=== PATIENT | female | born 1935 | race Caucasian/White ===

== ENCOUNTER → 2016-04-01 | Outpatient (CLI) | payer MEDICARE, OTHER ==
[~2016-04-01] MED LIST: ACET-71 PO; AMIT75TA PO; ASPI81TA85 PO; BIMA01SOL OU; CARV12.5 PO; CARV6.25 PO; CIPR500T89 PO; CLOB0.057 TOP; CODE15TA2 PO; CODE30TA3 PO; DIOV160T6 PO; GABA300C3 PO; GLIP-162 PO; GLIP-163 PO; INSUH10VL SC; LOMO2.5T PO; LOVA1CAP17 PO; METF1000 PO; METF500T PO; MULT1TAB9 PO; NEUR300C PO; OLOP1OPD OU; OMEP20CA3 PO; REQU1TAB16 PO; ROPI1TAB PO; ROPI2TAB PO; SUCR1SS PO; VICO10TA11 PO; VITMTA PO; ZETI10TA2 PO; ZYLO300T4 PO; ZYRT10CA PO
[2016-04-01 12:38] LABS: YEAST LIKE CELL URINE AUTO SMALL
[2016-04-01 12:51] LABS: CALCIUM LEVEL 9.3 MG/DL (8.8-10.2); CREATININE FOR GFR 1.86 MG/DL (0.55-1.02); GLOMERULAR FILTRATION RATE 27.8 (>32); POTASSIUM SERUM 4.5 MEQ/L (3.5-5.1)
[2016-04-01 12:55] LABS: MEAN CORPUSCULAR HEMOGLOBIN 29.6 pg (27.0-33.0); MEAN CORPUSCULAR HGB CONC 32.7 g/dl (32.0-36.5); MEAN CORPUSCULAR VOLUME 90.6 fl (80.0-96.0); RED CELL DISTRIBUTION WIDTH 14.5 % (11.5-14.5); WHITE BLOOD COUNT 7.4 K/mm3 (4.0-10.0)
== END ==
LOC: M LAB 11:46
PROVIDERS: ATTEND Urology
DX: Z08 Encounter for follow-up examination after completed treatment for malignant neoplasm (principal); Z85.528 Personal history of other malignant neoplasm of kidney; Z90.5 Acquired absence of kidney

== ENCOUNTER → 2016-04-07 | Outpatient (REF) | payer MEDICARE, OTHER ==
[2016-04-07 18:09] LABS: PERCENT SATURATION 16.9 % (13.2-37.4)
== END ==
LOC: M LAB REF 17:01
PROVIDERS: ATTEND Internal Medicine Nephrology
DX: N39.0 Urinary tract infection, site not specified (principal); D50.9 Iron deficiency anemia, unspecified
CPT/HCPCS: 82728; 83550; 87088; 87186; G0463

== ENCOUNTER → 2016-06-23 | Outpatient (CLI) | payer MEDICARE, OTHER ==
[~2016-06-23] MED LIST changes: +GABA-282 PO; -GABA300C3 PO
[2016-06-23 10:50] LABS: MEAN CORPUSCULAR HEMOGLOBIN 29.5 pg (27.0-33.0); MEAN CORPUSCULAR HGB CONC 32.7 g/dl (32.0-36.5); MEAN CORPUSCULAR VOLUME 90.3 fl (80.0-96.0); RED CELL DISTRIBUTION WIDTH 14.2 % (11.5-14.5); WHITE BLOOD COUNT 7.5 K/mm3 (4.0-10.0)
[2016-06-23 11:01] LABS: CALCIUM LEVEL 8.4 MG/DL (8.8-10.2); CREATININE FOR GFR 1.84 MG/DL (0.55-1.02); GLOMERULAR FILTRATION RATE 28.1 (>32); POTASSIUM SERUM 4.5 MEQ/L (3.5-5.1)
== END ==
LOC: M LAB 10:25
PROVIDERS: ATTEND Urology
DX: Z90.5 Acquired absence of kidney (principal)

== ENCOUNTER → 2016-11-11 | Outpatient (CLI) | payer MEDICARE, OTHER ==
[~2016-11-11] MED LIST changes: -ACET-71 PO; +ACET1TAB16 PO; +CIPR-249 PO; -CIPR500T89 PO; -METF1000 PO; +METF10004 PO; -METF500T PO; +METF500T13 PO; -ZETI10TA2 PO; +ZETI10TA30 PO
[2016-11-11 15:57] LABS: MEAN CORPUSCULAR HEMOGLOBIN 29.7 pg (27.0-33.0); MEAN CORPUSCULAR HGB CONC 32.8 g/dl (32.0-36.5); MEAN CORPUSCULAR VOLUME 90.7 fl (80.0-96.0); WHITE BLOOD COUNT 7.8 10^3/uL (4.0-10.0)
[2016-11-11 16:27] LABS: CALCIUM LEVEL 9.3 MG/DL (8.8-10.2); CREATININE FOR GFR 1.67 MG/DL (0.55-1.02); GLOMERULAR FILTRATION RATE 31.4 (>32); POTASSIUM SERUM 4.8 MEQ/L (3.5-5.1)
== END ==
LOC: M LAB 15:12
PROVIDERS: ATTEND Urology
DX: Z90.5 Acquired absence of kidney (principal); Z85.528 Personal history of other malignant neoplasm of kidney

== ENCOUNTER 2016-12-23 09:46 | Emergency (ER) | payer MEDICARE, OTHER ==
[~2016-12-23] VITALS: Ht 157.5 cm; Wt 86.3 kg
[~2016-12-23 09:46] MED LIST changes: -IMOD2TAB16 PO; -PEPC1TAB2 PO; -SING10TA32 PO; -ZOFR4TAB3 PO
[2016-12-23] MEDS ORDERED: IMOD2TAB16 PO (10:02)
[2016-12-23] MEDS ORDERED: SING10TA32 PO (10:02)
[2016-12-23] MEDS ORDERED: PEPC1TAB2 PO (10:02)
[2016-12-23] MEDS ORDERED: NS 1,000 ML IV ONE ×2 (10:30→15:00)
[2016-12-23 10:32] LABS: BASO # 0.1 10^3/uL (0.0-0.2); BASO % 0.6 % (0.0-1.0); EOS # 0.2 10^3/uL (0.0-0.50); EOS % 2.6 % (0.0-3.0); IMMATURE GRANULOCYTE % 0.2 % (0-0); LYMPH # 2.3 10^3/uL (1.5-4.5); LYMPH % 25.6 % (24.0-44.0); MEAN CORPUSCULAR HEMOGLOBIN 29.1 pg (27.0-33.0); MEAN CORPUSCULAR VOLUME 88.2 fl (80.0-96.0); MONO # 0.8 10^3/uL (0.0-0.8); NEUTROPHILS # 5.5 10^3/uL (1.8-7.7); PLATELET COUNT, AUTOMATED 192 10^3/uL (150-450); RED CELL DISTRIBUTION WIDTH 14.6 % (11.5-14.5); WHITE BLOOD COUNT 8.9 10^3/uL (4.0-10.0)
[2016-12-23 11:25] LABS: INR 1.1
[2016-12-23 11:40] LABS: ALBUMIN 3.6 GM/DL (3.2-5.2); ALBUMIN/GLOBULIN RATIO 1.03 (1.00-1.93); BILIRUBIN,DIRECT 0.2 MG/DL (0.0-0.2); BILIRUBIN,TOTAL 0.7 MG/DL (0.2-1.0); CALCIUM LEVEL 9.2 MG/DL (8.8-10.2); CREATININE FOR GFR 1.61 MG/DL (0.55-1.02); GLOMERULAR FILTRATION RATE 32.7 (>32); TOTAL PROTEIN 7.1 GM/DL (6.4-8.2)
--- NOTE | 2016-12-23 12:37 | REP ---
Clinical: Abdominal pain with diarrhea. Comparison: 01/13/2016. Findings: 3.5 cm hepatic cyst in the left lobe is essentially unchanged. Spleen, pancreas, and left adrenal gland are normal. Right kidney demonstrates 1 cm hyperdense lesion likely representing complex cyst (image 64). The patient is status post left nephrectomy and cholecystectomy. Very subtle stranding adjacent to the duodenum and pancreatic head may reflect chronic changes however duodenitis versus pancreatitis cannot be excluded and should be correlated clinically. The enteric system is without obstruction or acute inflammatory process. Pelvis demonstrates normal bladder and evidence for prior hysterectomy. Sigmoid diverticula noted without acute diverticulitis. No ascites. No free air. No significant adenopathy. Atherosclerotic changes of the aorta noted without aneurysm. Skeletal structures demonstrate degenerative changes without focal osseous abnormality. Lung bases clear. Impression: 1. Very minimal stranding at the level of the duodenum and pancreatic head may reflect chronic changes versus acute duodenitis/pancreatitis and correlation is recommended. 2. No further acute abdominopelvic pathology appreciated. 3. Chronic changes include 3.5 cm hepatic cyst and 1 cm right renal hyperdense lesion likely representing complex cyst. 4. No ascites. No obvious mass or adenopathy. Signed by Tacos Ma MD 12/23/2016 12:30 P
[2016-12-23] MEDS ORDERED: ONDANSETRON 4MG/2ML VIAL (J2405) IV ONE (13:30)
[2016-12-23] MEDS ORDERED: ACETAMINOPHEN TAB 650MG DOSE (2X325MG) PO ONE (13:30)
--- NOTE | 2016-12-23 13:56 | ECGEPIP ---
Stationary ECG Study [facility] - ED Test Date: 2016-12-23 Pat Name: THAIS ART Department: Room: - Gender: F [employer] Operator: frank : 1935 Requested By: Natalia Thompson Order Number: [id number] Reading MD: Bharat Llamas Measurements Intervals [place] Rate: 92 P: 34 ND: 138 QRS: -41 QRSD: 101 T: 62 QT: 356 QTc: 442 Interpretive Statements SINUS RHYTHM LEFT AXIS DEVIATION PATTERN CONSISTENT WITH PULMONARY DISEASE NONSPECIFIC T-WAVE ABNORMALITY SIMILAR TO 03/15/15 Electronically Signed On 12-23-2016 13:56:15 EST by Bharat Llamas
[2016-12-23] MEDS ORDERED: ZOFR4TAB3 PO (16:47)
[2016-12-23 18:35] VITALS: BP 135/78
--- NOTE | 2016-12-27 09:17 | ED PDOC ---
Post-Departure Follow-Up dari flores faxed formal report of ct abd/p for fu Kristie Fritz MD Dec 27, 2016 09:17
== END 2016-12-23 18:38 | disposition home or self-care (01) ==
LOC: M ED 09:46
DX: R11.10 Vomiting, unspecified (principal); R19.7 Diarrhea, unspecified; K58.9 Irritable bowel syndrome, unspecified; Z79.899 Other long term (current) drug therapy; Z79.4 Long term (current) use of insulin; Z88.1 Allergy status to other antibiotic agents; Z88.2 Allergy status to sulfonamides; Z85.528 Personal history of other malignant neoplasm of kidney
CPT/HCPCS: 36415; 74176; 80048; 80076; 83605; 83690; 85025; 85610; 93005; 93041; 96374; 99285; J2405

== ENCOUNTER → 2016-12-23 | Outpatient (REF) | payer MEDICARE, OTHER ==
[~2016-12-23] MED LIST changes: +IMOD2TAB16 PO; +PEPC1TAB2 PO; +SING10TA32 PO; +ZOFR4TAB3 PO
== END ==
LOC: M LAB REF 11:58
PROVIDERS: ATTEND Emergency Medicine
DX: R19.7 Diarrhea, unspecified (principal)

== ENCOUNTER → 2017-02-16 | Outpatient (CLI) | payer MEDICARE, OTHER ==
[2017-02-16 16:30] LABS: HEMATOCRIT 38.4 % (36.0-47.0); HEMOGLOBIN 12.7 g/dl (12.0-16.0); MEAN CORPUSCULAR HEMOGLOBIN 29.1 pg (27.0-33.0); MEAN CORPUSCULAR HGB CONC 33.1 g/dl (32.0-36.5); MEAN CORPUSCULAR VOLUME 87.9 fl (80.0-96.0); PLATELET COUNT, AUTOMATED 186 10^3/uL (150-450); RED BLOOD COUNT 4.37 10^6/uL (4.00-5.40); RED CELL DISTRIBUTION WIDTH 13.9 % (11.5-14.5); WHITE BLOOD COUNT 8.4 10^3/uL (4.0-10.0)
[2017-02-16 17:02] LABS: ANION GAP 4 MEQ/L (8-16); BLOOD UREA NITROGEN 22 MG/DL (7-18); CALCIUM LEVEL 9.2 MG/DL (8.8-10.2); CARBON DIOXIDE LEVEL 32 MEQ/L (21-32); CHLORIDE LEVEL 105 MEQ/L (98-107); CREATININE FOR GFR 1.42 MG/DL (0.55-1.02); GLOMERULAR FILTRATION RATE 37.8 (>32); GLUCOSE, FASTING 136 MG/DL (83-110); POTASSIUM SERUM 4.3 MEQ/L (3.5-5.1); SODIUM LEVEL 141 MEQ/L (136-145)
== END ==
LOC: M LAB 16:02
DX: Z85.528 Personal history of other malignant neoplasm of kidney (principal)
CPT/HCPCS: 80048

== ENCOUNTER → 2017-08-09 | Outpatient (CLI) | payer MEDICARE, OTHER ==
[2017-08-09 12:37] LABS: HEMATOCRIT 36.7 % (36.0-47.0); MEAN CORPUSCULAR HEMOGLOBIN 29.2 pg (27.0-33.0); MEAN CORPUSCULAR HGB CONC 32.7 g/dl (32.0-36.5); MEAN CORPUSCULAR VOLUME 89.3 fl (80.0-96.0); PLATELET COUNT, AUTOMATED 156 10^3/uL (150-450); RED BLOOD COUNT 4.11 10^6/uL (4.00-5.40); RED CELL DISTRIBUTION WIDTH 14.6 % (11.5-14.5); WHITE BLOOD COUNT 8.3 10^3/uL (4.0-10.0)
[2017-08-09 12:43] LABS: BACTERIA, URINE AUTO 1+ (NEGATIVE); MUCUS, URINE SMALL (NEGATIVE); RBC, URINE AUTO 3 /HPF (0-3); SQUAMOUS EPITHELIAL CELL UR AU 0 /HPF (0-6); WBC, URINE AUTO 1 /HPF (0-3)
[2017-08-09 12:53] LABS: APPEARANCE, URINE CLEAR (CLEAR); BILIRUBIN, URINE AUTO NEGATIVE (NEGATIVE); BLOOD, URINE BLOOD NEGATIVE (NEGATIVE); COLOR, URINE YELLOW (YELLOW); GLUCOSE, URINE (UA) AUTO NEGATIVE (NEGATIVE); KETONE, URINE AUTO NEGATIVE (NEGATIVE); LEUKOCYTE ESTERASE, URINE AUTO NEGATIVE (NEGATIVE); NITRITE, URINE AUTO NEGATIVE (NEGATIVE); PROTEIN, URINE AUTO NEGATIVE (NEGATIVE); SPECIFIC GRAVITY URINE AUTO 1.012 (1.002-1.035); UROBILINOGEN, URINE AUTO 0.2 mg/dL (0.0-2.0)
[2017-08-09 13:09] LABS: ANION GAP 8 MEQ/L (8-16); BLOOD UREA NITROGEN 28 MG/DL (7-18); CALCIUM LEVEL 8.8 MG/DL (8.8-10.2); CARBON DIOXIDE LEVEL 28 MEQ/L (21-32); CHLORIDE LEVEL 103 MEQ/L (98-107); CREATININE FOR GFR 1.51 MG/DL (0.55-1.30); GLOMERULAR FILTRATION RATE 35.2 (>32); GLUCOSE, FASTING 193 MG/DL (70-100); POTASSIUM SERUM 4.6 MEQ/L (3.5-5.1); SODIUM LEVEL 139 MEQ/L (136-145)
== END ==
LOC: M LAB 11:41
DX: Z08 Encounter for follow-up examination after completed treatment for malignant neoplasm (principal); Z85.528 Personal history of other malignant neoplasm of kidney
CPT/HCPCS: 80048

== ENCOUNTER → 2017-09-23 | Outpatient (CLI) | payer MEDICARE, OTHER | LOC: M WUC 10:26 | DX: M25.531 Pain in right wrist (principal); M19.041 Primary osteoarthritis, right hand | CPT/HCPCS: 73110 ==

== ENCOUNTER → 2017-12-21 | Outpatient (CLI) | payer MEDICARE, OTHER | LOC: M WHC 13:31 | DX: Z12.31 Encounter for screening mammogram for malignant neoplasm of breast (principal); Z80.3 Family history of malignant neoplasm of breast; Z78.0 Asymptomatic menopausal state; Z98.890 Other specified postprocedural states | CPT/HCPCS: 77067 ==

== ENCOUNTER 2018-01-27 13:03 | Emergency (ER) | payer MEDICARE, OTHER ==
[2018-01-27] MEDS: traMADol 50 MG TAB PO (13:50)
[2018-01-27] MEDS: ACETAMINOPHEN TAB 650MG DOSE (2X325MG) PO (13:50)
== END 2018-01-27 14:58 | disposition home or self-care (01) ==
LOC: M ED 13:03
DX: M50.30 Other cervical disc degeneration, unspecified cervical region (principal); M62.838 Other muscle spasm; G43.909 Migraine, unspecified, not intractable, without status migrainosus; M79.7 Fibromyalgia; E78.00 Pure hypercholesterolemia, unspecified; I10 Essential (primary) hypertension; J44.9 Chronic obstructive pulmonary disease, unspecified; G47.30 Sleep apnea, unspecified; Z87.01 Personal history of pneumonia (recurrent); H40.9 Unspecified glaucoma; K21.9 Gastro-esophageal reflux disease without esophagitis; K57.32 Diverticulitis of large intestine without perforation or abscess without bleeding; Z87.440 Personal history of urinary (tract) infections; Z87.442 Personal history of urinary calculi; E11.9 Type 2 diabetes mellitus without complications; G25.81 Restless legs syndrome; M47.812 Spondylosis without myelopathy or radiculopathy, cervical region; M47.813 Spondylosis without myelopathy or radiculopathy, cervicothoracic region; Z79.4 Long term (current) use of insulin; Z79.899 Other long term (current) drug therapy; Z88.2 Allergy status to sulfonamides
CPT/HCPCS: 72125

== ENCOUNTER → 2018-02-20 | Outpatient (CLI) | payer MEDICARE, OTHER ==
[~2018-02-20] MED LIST changes: -GABA-282 PO; +GABA-843 PO; +IMOD2TAB16 PO; +PEPC1TAB2 PO; +SING10TA32 PO; +ULTR50TA8 PO; +ZOFR4TAB14 PO; -ZYLO300T4 PO; +ZYLO300T6 PO
[2018-02-20 13:45] LABS: HEMATOCRIT 38.4 % (36.0-47.0); HEMOGLOBIN 12.5 g/dl (12.0-15.5); MEAN CORPUSCULAR HEMOGLOBIN 29.7 pg (27.0-33.0); MEAN CORPUSCULAR HGB CONC 32.6 g/dl (32.0-36.5); MEAN CORPUSCULAR VOLUME 91.2 fl (80.0-96.0); PLATELET COUNT, AUTOMATED 164 10^3/uL (150-450); RED BLOOD COUNT 4.21 10^6/uL (4.00-5.40); WHITE BLOOD COUNT 7.2 10^3/uL (4.0-10.0)
[2018-02-20 14:10] LABS: CALCIUM LEVEL 9.1 MG/DL (8.8-10.2); CREATININE FOR GFR 1.52 MG/DL (0.55-1.30); GLOMERULAR FILTRATION RATE 34.9 (>32); POTASSIUM SERUM 4.6 MEQ/L (3.5-5.1)
[2018-02-20 15:51] LABS: APPEARANCE, URINE MANUAL HAZY (CLEAR); BILIRUBIN, URINE MANUAL NEGATIVE (NEGATIVE); BLOOD URINE MANUAL TRACE (NEGATIVE); COLOR, URINE MANUAL YELLOW (YELLOW); GLUCOSE, URINE (UA) MANUAL 3+(500 MG/DL) mg/dL (NEGATIVE); KETONE, URINE MANUAL NEGATIVE (NEGATIVE); LEUKOCYTE ESTERASE, URINE MAN NEGATIVE (NEGATIVE); NITRITE, URINE MANUAL NEGATIVE (NEGATIVE); PROTEIN, URINE MANUAL 2+ mg/dL (NEGATIVE); UROBILINOGEN, URINE MANUAL NORMAL (NORMAL)
[2018-02-20 15:52] LABS: AMORPHOUS SEDIMENT, URINE MOD AMOUNT (NEGATIVE); BACTERIA, URINE SMALL AMOUNT; HYALINE CAST, URINE NONE SEEN /lpf (0-1); SQUAMOUS EPITHELIAL CELL URINE MOD AMOUNT /hpf (SMALL AMT); WBC, URINE 0-1 /hpf (0-3)
== END ==
LOC: M SMT 10:50
PROVIDERS: ATTEND Nurse Practitioner Women's Health
DX: Z85.528 Personal history of other malignant neoplasm of kidney (principal); Z90.5 Acquired absence of kidney
CPT/HCPCS: 36415; 80048; 81000; 85027; 87088; 87186; G0463

== ENCOUNTER → 2018-05-29 | Outpatient (REF) | payer MEDICARE, OTHER ==
[~2018-05-29] MED LIST changes: +ACET300T47 PO; -CODE30TA3 PO; -OLOP1OPD OU; +PATA2.5S OU; -PEPC1TAB2 PO; +PEPC40TA12 PO
== END ==
LOC: M SMT 18:32
PROVIDERS: ATTEND Family Medicine
DX: N39.0 Urinary tract infection, site not specified (principal)

== ENCOUNTER → 2018-08-15 | Outpatient (CLI) | payer MEDICARE, OTHER ==
[~2018-08-15] MED LIST changes: -OMEP20CA3 PO; +OMEP20CA4 PO
[2018-08-15 15:08] LABS: APPEARANCE, URINE CLEAR (CLEAR); BACTERIA, URINE AUTO NEGATIVE (NEGATIVE); BILIRUBIN, URINE AUTO NEGATIVE (NEGATIVE); BLOOD, URINE BLOOD NEGATIVE (NEGATIVE); COLOR, URINE YELLOW (YELLOW); GLUCOSE, URINE (UA) AUTO 1+ mg/dL (NEGATIVE); KETONE, URINE AUTO NEGATIVE (NEGATIVE); LEUKOCYTE ESTERASE, URINE AUTO NEGATIVE (NEGATIVE); MUCUS, URINE SMALL (NEGATIVE); NITRITE, URINE AUTO NEGATIVE (NEGATIVE); PROTEIN, URINE AUTO NEGATIVE (NEGATIVE); RBC, URINE AUTO 3 /HPF (0-3); SPECIFIC GRAVITY URINE AUTO 1.008 (1.002-1.035); SQUAMOUS EPITHELIAL CELL UR AU 0 /HPF (0-6); UROBILINOGEN, URINE AUTO 0.2 mg/dL (0.0-2.0); WBC, URINE AUTO 2 /HPF (0-3)
[2018-08-15 15:11] LABS: HEMOGLOBIN 11.6 g/dl (12.0-15.5); MEAN CORPUSCULAR HEMOGLOBIN 30.9 pg (27.0-33.0); MEAN CORPUSCULAR HGB CONC 33.1 g/dl (32.0-36.5); MEAN CORPUSCULAR VOLUME 93.3 fl (80.0-96.0); PLATELET COUNT, AUTOMATED 145 10^3/uL (150-450); RED BLOOD COUNT 3.75 10^6/uL (4.00-5.40)
[2018-08-15 15:20] LABS: CREATININE FOR GFR 1.65 MG/DL (0.55-1.30); GLOMERULAR FILTRATION RATE 31.7 (>32); POTASSIUM SERUM 4.2 MEQ/L (3.5-5.1)
== END ==
LOC: M LAB 14:30
PROVIDERS: ATTEND Family Medicine
DX: N39.0 Urinary tract infection, site not specified (principal); Z85.528 Personal history of other malignant neoplasm of kidney

== ENCOUNTER → 2018-08-28 | Outpatient (CLI) | payer MEDICARE, OTHER ==
--- NOTE | 2018-08-28 09:09 | REP ---
CT of the abdomen, pelvis not included, without IV or bowel contrast: Comparison is 12/23/2016. There is a left nephrectomy. This is unchanged. There is no evidence of tumor recurrence in the left renal bed. There is a right renal 12 mm hyperdense cyst, not significantly changed. The unenhanced right kidney is otherwise unremarkable. The right adrenal is unremarkable. I do not identify the left adrenal. The visualized lung salazar are unremarkable. The unenhanced paretic pancreatic parenchyma again demonstrates a cyst in the left hepatic lobe measuring 3.5 cm, unchanged. The unenhanced hepatic parenchyma is otherwise unremarkable. There are surgical clips in the gallbladder fossa. The pancreas is unremarkable. Spleen is normal size, homogeneous and unremarkable. The visualized bowel and mesentery are unremarkable. The abdominal aorta is unremarkable. There is no retroperitoneal adenopathy or mass. There is a 1.7 cm round lucency in the vertebral body, consider radionuclide bone scan for follow up evaluation. Impression: No evidence of a tumor recurrence in the left renal bed, adenopathy or ascites. There is a 1.7 cm round lucency in the L2 vertebral body. Consideration might be given to follow-up radionuclide bone scan for further evaluation. Electronically Signed by Morris Steele MD 08/28/2018 09:00 A
--- NOTE | 2018-08-28 09:30 | REP ---
PA and lateral chest: Comparison is 02/24/2015. The lung salazar are clear. Cardiac size is upper normal, unchanged. The pam, mediastinum, skeletal structures are unchanged. There are multiple surgical anchor screws in the right humeral head, unchanged. Surgical clips are again noted in the upper abdomen on the right, unchanged. Impression: Essentially negative PA and lateral chest. No interval change. Electronically Signed by Morris Steele MD 08/28/2018 09:21 A
== END ==
LOC: M RAD 08:15
PROVIDERS: ATTEND Urology
DX: Z85.528 Personal history of other malignant neoplasm of kidney (principal); Z90.5 Acquired absence of kidney

== ENCOUNTER → 2018-09-07 | Outpatient (CLI) | payer MEDICARE, OTHER ==
[~2018-09-07] MED LIST changes: +ZETI10TA16 PO; -ZETI10TA30 PO
--- NOTE | 2018-09-07 12:07 | REP ---
Radionuclide bone scan: The study is performed with 20.8 millicuries of technetium 99m labeled MDP. There are no comparison studies. The patient has a history of left renal carcinoma and a left nephrectomy. There is focal increased uptake in the lower cervical spine/upper thoracic spine. There is uptake in the joints of the hands bilaterally compatible with arthritis. There are bilateral knee arthroplasties. There is uptake in the tarsometatarsal joints bilaterally and at the MTP joints bilaterally, likely arthritic. There is no left renal uptake, the patient having a left nephrectomy. Impression: There is focal increased uptake in the spine at the lower cervical spine/upper thoracic spine . This is nonspecific and plain films, CT or MRI of this area are recommended for further evaluation. There is an arthritic pattern of uptake in the hands and feet. There are bilateral knee arthroplasties. Electronically Signed by Morris Steele MD 09/07/2018 11:59 A
== END ==
LOC: M RAD 07:48
PROVIDERS: ATTEND Urology
DX: M89.9 Disorder of bone, unspecified (principal); Z79.899 Other long term (current) drug therapy
CPT/HCPCS: 78306; 87086; A9503

== ENCOUNTER → 2018-09-07 | Outpatient (REF) | payer MEDICARE, OTHER ==
[~2018-09-07] MED LIST changes: -ZETI10TA16 PO; +ZETI10TA30 PO
== END ==
LOC: M LAB REF 17:23
PROVIDERS: ATTEND Internal Medicine Nephrology
DX: N39.0 Urinary tract infection, site not specified (principal)

== ENCOUNTER → 2018-09-14 | Outpatient (CLI) | payer MEDICARE, OTHER ==
[~2018-09-14] MED LIST changes: +ZETI10TA16 PO; -ZETI10TA30 PO
--- NOTE | 2018-09-14 17:47 | REP ---
CERVICAL SPINE, EIGHT VIEWS: HISTORY: None provided. The cervical spine is visualized from C1 to the C6-7 level in the lateral radiographs. There is no acute fracture. The C5-6 and C6-7 intervertebral discs are decreased in height consistent with disc degeneration. Osteophytes are present on C5 through C7. The neural foramina are poorly seen. There are 2 mm of anterior subluxation of C4 on C5 and C5 on C6, unchanged with flexion and extension. IMPRESSION: Degenerative change as described above. Electronically Signed by Vladimir Leon MD 09/15/2018 08:19 A
== END ==
LOC: M RAD 15:21
PROVIDERS: ATTEND Urology
DX: M50.322 Other cervical disc degeneration at C5-C6 level (principal); M50.323 Other cervical disc degeneration at C6-C7 level; M25.78 Osteophyte, vertebrae; R94.8 Abnormal results of function studies of other organs and systems

== ENCOUNTER 2018-12-12 08:52 | Inpatient (IN) | payer MEDICARE, OTHER ==
[~2018-12-12] VITALS: Ht 154.9 cm; Wt 90.9 kg
[2018-12-12] MEDS ORDERED: ONDANSETRON 4MG/2ML VIAL (J2405) IV ONE (09:15)
[2018-12-12] MEDS: MORPHINE 4 MG/ML 1ML VIAL/SYRINGE (J2270) IV PRN ×3 (09:29→20:14)
[2018-12-12 09:38] LABS: BASO # 0.1 10^3/uL (0.0-0.2); BASO % 0.5 % (0.0-1.0); EOS # 0.3 10^3/uL (0.0-0.5); EOS % 2.7 % (0.0-3.0); HEMATOCRIT 38.7 % (36.0-47.0); HEMOGLOBIN 12.5 g/dl (12.0-15.5); LYMPH # 1.8 10^3/uL (1.5-5.0); MEAN CORPUSCULAR HEMOGLOBIN 29.3 pg (27.0-33.0); MEAN CORPUSCULAR HGB CONC 32.3 g/dl (32.0-36.5); MEAN CORPUSCULAR VOLUME 90.8 fl (80.0-96.0); MONO # 1.1 10^3/uL (0.0-0.8); MONO % 11.8 % (0.0-5.0); NEUTROPHILS # 6.1 10^3/uL (1.5-8.5); NEUTROPHILS % 65.8 % (36.0-66.0); PLATELET COUNT, AUTOMATED 161 10^3/uL (150-450); RED BLOOD COUNT 4.26 10^6/uL (4.00-5.40); WHITE BLOOD COUNT 9.2 10^3/uL (4.0-10.0)
[2018-12-12 10:22] LABS: ERYTHROCYTE SEDIMENTATION RATE 37 mm/hr (0-30)
[2018-12-12 11:03] LABS: ALBUMIN 3.6 GM/DL (3.2-5.2); BILIRUBIN,TOTAL 0.7 MG/DL (0.2-1.0); C REACTIVE PROTEIN QUANTITATIV 2.35 MG/DL (0.00-0.30); CALCIUM LEVEL 9.2 MG/DL (8.8-10.2); CREATININE FOR GFR 1.41 MG/DL (0.55-1.30); POTASSIUM SERUM 4.5 MEQ/L (3.5-5.1)
--- NOTE | 2018-12-12 11:13 | REP ---
AP pelvis: The pelvis is oblique. There is a small area of cortical overlap superior cortex of the right femoral neck, of uncertain significance. This could represent a nondisplaced fracture could be artifact from positioning. No pelvic fractures are identified otherwise. Right hip four views: Small area of cortical overlap along the right femoral neck superior cortex is again identified. Artifact from positioning versus nondisplaced fracture. Depending on symptomatology, consider CT for further evaluation. Electronically Signed by Morris Steele MD 12/12/2018 11:05 A
[2018-12-12] MEDS ORDERED: HYDROMORPHONE HCL 0.5 MG/ 0.5 ML SYRINGE (J1170 PER 1) IV ONE (11:30)
[2018-12-12] MEDS: HYDROMORPHONE HCL 0.5 MG/ 0.5 ML SYRINGE (J1170 PER 1) IV PRN ×2 (12:57→23:06)
--- NOTE | 2018-12-12 14:42 | REP ---
CT RIGHT HIP WITHOUT CONTRAST: HISTORY: Pain. Comparison hip radiographs are from earlier this date. TECHNIQUE: Helical scanning is acquired. Coronal and sagittal MPR images are generated and reviewed along with axial images. There is fairly prominent tendon insertion site spurring in the ischium, and to a lesser extent, at the greater trochanter of the proximal femur. Proximal femur is intact without evidence of fracture. There is some subcortical cyst formation superiorly and laterally on the head/neck junction of the proximal femur consistent with arthritis. There is acetabular spurring and subcortical cyst formation. Mild joint space narrowing is present. No pelvic fracture is appreciated. There are a few left colonic diverticula noted incidentally. IMPRESSION: No hip or pelvic fracture seen. Hip joint osteoarthritis. Tendon insertion site spurring. Unreviewed
[2018-12-12] MEDS ORDERED: LIDOCAINE 5% (LIDODERM) PATCH TD ONE (15:00)
[2018-12-12] MEDS ORDERED: MAALOX 30 ML SUSP *UDC PO PRN (16:30)
[2018-12-12] MEDS ORDERED: MOM 30ML SUSPENSION UDC PO PRN (16:30)
[2018-12-12] MEDS ORDERED: GLUCOSE 4 GM CHEW TABLET PO PRN (16:45)
[2018-12-12] MEDS ORDERED: DEXTROSE 50% 50 ML SYRINGE IV PRN (16:45)
[2018-12-12] MEDS ORDERED: GLUCAGON FOR INJ 1 MG VIAL (J1610) SC PRN (16:45)
[2018-12-12] MEDS ORDERED: ONDANSETRON 4MG/2ML VIAL (J2405) IV PRN (16:45)
--- NOTE | 2018-12-12 16:51 | HPEPDOC ---
General Date of Admission 12/12/18 Date of Service: Dec 12, 2018 Chief Complaint The patient is a 82-year-old female admitted with a reason for visit of Non Traumatic Back Pain. History of Present Illness This is a 82 years old white female with past medical history of diabetes mellitus, hypertension, colitis, arthritis, diverticulitis, pneumonia, glaucoma are ill as obstructive sleep apnea on CPAP, fibromyalgia, renal cell carcinoma. Follows up with Dr. Steven and had recently. Bone scan of body done which shows arthritis of hips and knees presented with the chief complaints of severe right buttock pain, nonradiating, persistent since last 2 nights. She is unable to sleep or function secondary to pain. Pain does not radiate to lower limb artwork the spine, not associated with fever, nausea, vomiting or weakness of right lower extremity. In ED, patient had a CT of the right hip done, which essentially showed osteoarthritis and tendon spurring but no acute fracture, patient being admitted for pain management and physical therapy evaluation. Home Medications Scheduled Amitriptyline HCl (Amitriptyline HCl) 75 Mg Tab, 150 MG PO QHS, (Reported) Bimatoprost (Lumigan) 50 Drop/2.5 Ml Judy, 1 DROP OU QHS, (Reported) Carvedilol (Carvedilol) 12.5 Mg Tab, 12.5 MG PO BID, (Reported) Ezetimibe (Zetia) 10 Mg Tab, 10 MG PO QHS, (Reported) Famotidine (Pepcid) 40 Mg Tab, 40 MG PO DAILY, (Reported) Gabapentin (Neurontin) 300 Mg Cap, 300 MG PO ACS, (Reported) Glipizide (Glipizide Xl) 5 Mg Tab, 5 MG PO DAILY, (Reported) Insulin Human Lispro (Novolog) 100 U/Ml Inj, 0 SC ASDIRECTED, (Reported) Use insulin and sliding scale used at home prior to admission. Montelukast Sodium (Singulair) 10 Mg Tab, 10 MG PO DAILY, (Reported) Multivitamins (Thera M Plus Tablet) 1 Tab Tab, 1 TAB PO DAILY, (Reported) Olopatadine HCl (Patanol) 100 Drop/5 Ml Soln, 1 DROP OU BID, (Reported) ONE DROP Ropinirole HCl (Ropinirole HCl) 1 Mg Tab, 2 MG PO BID, (Reported) TAKES AT DINNER TIME Sucralfate (Carafate) 1 Gm/10 Ml Shwetha, 2 TSP PO QHS, (Reported) Valsartan (Diovan) 160 Mg Tab, 80 MG PO DAILY, (Reported) Scheduled PRN Acetaminophen with Codeine (Acetaminophen-Cod #3 Tablet) 1 Tab Tab, 1 TAB PO Q6H PRN for PAIN, (Reported) Cetirizine HCl (Zyrtec Allergy) 10 Mg Cap, 10 MG PO PRN PRN for CONGESTION, (Reported) Clobetasol Propionate (Clobetasol Propionate) 0.05 % Judy, 1 DOSE TOP PRN PRN for DRY SKIN, (Reported) PLACES ON FOREHEAD Loperamide Hcl (Imodium A-D) 2 Mg Tab, 2 MG PO PRN PRN for DIARRHEA, (Reported) Ondansetron (Zofran Odt) 4 Mg Tab, 4 MG PO Q4H PRN for NAUSEA Tramadol HCl (Ultram) 50 Mg Tab, 50 MG PO Q6H PRN for PAIN Allergies Coded Allergies: Sulfa (Sulfonamide Antibiotics) (Verified Allergy, Severe, 12/12/18) Contrast Media (Verified Allergy, Intermediate, 12/12/18) patient had kidney removed Past Medical History Medical History Diabetes mellitus, hypertension, colitis, arthritis, diverticulitis, pneumonia, glaucoma, RLS, obstructive sleep apnea, fibromyalgia, renal cell carcinoma Surgical History Hysterectomy with bilateral salpingo-oophorectomy, cataract. 5. Bilateral knee replacement, knee arthroscopy, shoulder arthroscopy Coppertone's syndrome releases, bilateral rotator cuff tear repair 3 on right side, cholecystectomy robotic left nephrectomy secondary to renal cell carcinoma, left shoulder surgery Family History Significant Family History: Other (father at the age of 73 with [place]. Mother at age of 79 with ALS. One other brother due to aortic aneurysm and sister had breast cancer) Social History * Smoker: Denies Alcohol: Denies Drugs: denies A-FIB/CHADSVASC A-FIB History Current/History of A-Fib/PAF?: No Review of Systems Constitutional: Denies: Chills, Fever, Malaise, Night Sweats, Weakness, Fatigue, Weight Loss, Lethargy, Other Eyes: Denies: Pain, Vision change, Conjunctivae inflammation, Eyelid inflammation, Redness, Other ENT: Denies: Head Aches, Ear Pain, Dysphagia, Sinus Congestion, Post Nasal Drip, Sore Throat, Epistaxis, Other Symptoms Skin: Denies: Rash, Lesions, Jaundice, Bruising, Itching, Dry, Breakdown, Nail Changes, Other Pulmonary: Denies: Dyspnea, Cough, Pleuritic Chest Pain, Other Symptoms Cardiovascular: Denies: Chest Pain, Palpitations, Orthopnea, Paroxysmal Noc. Dyspnea, Edema, Lt Headedness, Other Symptoms Gastrointestinal: Denies: Nausea, Vomiting, Abdominal Pain, Diarrhea, Constipation, Melena, Hematochezia, Other Symptoms Genitourinary: Denies: Dysuria, Frequency, Incontinence, Hematuria, Retention, Other Symptoms Hematologic: Denies: Bruising, Bleeding Excessively, Petecchia, Purpura, Enlarged Lymph Nodes, Other Hematologic Endocrine: Denies: Polydipsia, Polyphagia, Polyuria, Heat Intolerance, Cold Intolerance, Other Endocrine Sx Musculoskeletal: Reports: Other Symptoms (, right buttock pain) Neurological: Denies: Weakness, Numbness, Incoordination, Change in speech, Confusion, Seizures, Other Symptoms Psych: Denies: Mood Normal, Anxiety, Depression, Memory Issues, Thoughts of Self Harm, Anger, Thoughts of Harming Other, Other Psych Physical Examination General Exam: Positive: Alert, Cooperative Eye Exam: Positive: PERRLA, Conjunctiva & lids normal ENT Exam: Positive: Atraumatic Chest Exam: Positive: Clear to auscultation, Normal air movement Heart Exam: Positive: Rate Normal, Normal S1, Normal S2 Abdomen Exam: Positive: Normal bowel sounds, Soft Extremity Exam: Positive: Other (. Positive point tenderness in the middle of her buttocks about the ischial tuberosity on the right side. No mass palpated) Skin Exam: Positive: Nl turgor and temperature Neuro Exam: Positive: Strength at 5/5 X4 ext, Sensation Intact Psych Exam: Positive: Mood NL, Oriented x 3 Vital Signs Vital Signs Date Time Temp Pulse Resp B/P (MAP) Pulse Ox O2 Delivery O2 Flow Rate FiO2 12/12/18 11:42 18 92 Room Air 12/12/18 11:37 104 12/12/18 10:34 99.5 176/95 Laboratory Data Labs 24H Laboratory Tests 2 12/12/18 09:27: Immature Granulocyte % (Auto) 0.2, Neutrophils (%) (Auto) 65.8, Lymphocytes (%) (Auto) 19.0L, Monocytes (%) (Auto) 11.8H, Eosinophils (%) (Auto) 2.7, Basophils (%) (Auto) 0.5, Neutrophils # (Auto) 6.1, Lymphocytes # (Auto) 1.8, Monocytes # (Auto) 1.1H, Eosinophils # (Auto) 0.3, Basophils # (Auto) 0.1, Nucleated Red Blood Cells % (auto) 0.0, Erythrocyte Sedimentation Rate 37H 12/12/18 10:19: Anion Gap 7L, Glomerular Filtration Rate 38.0, Calcium Level 9.2, Total Bilirubin 0.7, Aspartate Amino Transf (AST/SGOT) 39H, Alanine Aminotransferase (ALT/SGPT) 32, Alkaline Phosphatase 101, C-Reactive Protein, Quantitative 2.35H, Total Protein 7.0, Albumin 3.6, Albumin/Globulin Ratio 1.06 CBC/BMP Laboratory Tests 12/12/18 09:27 12/12/18 10:19 Problems (1) Hip pain Status: Acute Problem Text: 82 years old, obese, white female with past medical history of multiple medical problems including diabetes mellitus, osteoarthritis of the hips and joints follows up with orthopedic surgeon at [place] since last 10 years. Also history of for diverticulitis, pneumonia, glaucoma, fibromyalgia, renal cell carcinoma was in usual state of health except some aches and pain, but since last 2 days her right buttock pain. His been excruciating. She has been unable to sleep or ambulate secondary to pain. Pain is persistent localized, nonradiating, not associated with any other symptoms. Patient had a right hip x-ray which showed a questionable female. Neck fracture, but she also had a CT of the right hip done which did not show any acute fracture, just osteoarthritis and the tenderness spurring. Patient received multiple doses of analgesics including morphine sulfate, Dilaudid, and muscle relaxants such as Valium without significant affect. Hence, we were advice to admit patient for further observation Admit to [facility] floor Activity as tolerated Carbohydrate consistent diet Morphine sulfate 4 mg IV every 4 hours when necessary Lidocaine patch to right buttock daily And declined muscle relaxant as she has adverse effect with all of them causing disorientation and delirium . We will also order MRI without contrast of the right hip to look at the tendons and ligaments PT evaluation in a.m. (2) Tendinitis Status: Acute Problem Text: As above (3) Diabetes mellitus Status: Chronic Problem Text: Fingerstick blood sugar every before meals and at bedtime with coverage Continue home meds (4) HTN (hypertension) Status: Chronic Problem Text: Continue home meds Plan / VTE VTE Prophylaxis Ordered?: Yes VERO GARCIA MD Dec 12, 2018 16:51
[2018-12-12] MEDS: HumaLOG INSULIN (NovoLOG) PER UNIT SC SCH ×2 (17:30→22:56)
[2018-12-12] MEDS ORDERED: OLOP0.1D OU (17:38)
[2018-12-12] MEDS ORDERED: CETI10TA4 PO (17:38)
[2018-12-12] MEDS ORDERED: NYST10CR TOP (17:48)
[2018-12-12] MEDS ORDERED: ZYLO300T6 PO (17:48)
[2018-12-12] MEDS ORDERED: OLME20TA2 PO (17:48)
[2018-12-12] MEDS ORDERED: ALIG4CAP PO (17:48)
[2018-12-12] MEDS ORDERED: NYST1POW9 TOP (17:48)
[2018-12-12] MEDS ORDERED: CALC1CAP31 PO (17:48)
[2018-12-12] MEDS ORDERED: SYNT50TA PO (17:48)
[2018-12-12] MEDS ORDERED: LIDO5DIS41 TD (17:48)
[2018-12-12] MEDS ORDERED: COLE1TA PO (17:48)
[2018-12-12] MEDS ORDERED: OMEP-218 PO (17:50)
[2018-12-12 18:30] VITALS: BP 166/94
[2018-12-12] MEDS: traMADol 50 MG TAB PO PRN (20:14)
[2018-12-12] MEDS ORDERED: SUCRALFATE SUSP 1GM/10ML UD PO SCH (21:00)
[2018-12-12] MEDS ORDERED: **NOTE PATIENT COMMENT** MISC XX SCH (21:00)
[2018-12-12] MEDS: DOCUSATE SODIUM 100 MG CAP PO SCH (22:05)
[2018-12-12] MEDS: rOPINIRole 1MG TAB PO SCH (22:05)
[2018-12-12] MEDS: CARVedilol 12.5 MG TAB PO SCH (22:06)
[2018-12-12] MEDS: GABAPENTIN 300 MG CAP PO SCH (22:06)
[2018-12-12] MEDS: EZETIMIBE 10 MG TAB (ZETIA) PO SCH (22:06)
[2018-12-12] MEDS: AMITRIPTYLINE 50 MG TAB PO SCH (22:06)
[2018-12-12 22:23] VITALS: BP 135/71
[2018-12-12] MEDS: **NOTE PATIENT COMMENT** MISC XX SCH (23:12)
[2018-12-13] MEDS: traMADol 50 MG TAB PO PRN (05:44)
[2018-12-13 05:45] VITALS: BP 139/78
[2018-12-13] MEDS: ACETAMINOPHEN TAB 650MG DOSE (2X325MG) PO PRN ×2 (05:45→18:35)
[2018-12-13 06:41] LABS: HEMATOCRIT 37.3 % (36.0-47.0); HEMOGLOBIN 11.5 g/dl (12.0-15.5); MEAN CORPUSCULAR HEMOGLOBIN 28.5 pg (27.0-33.0); MEAN CORPUSCULAR HGB CONC 30.8 g/dl (32.0-36.5); MEAN CORPUSCULAR VOLUME 92.6 fl (80.0-96.0); PLATELET COUNT, AUTOMATED 139 10^3/uL (150-450); RED BLOOD COUNT 4.03 10^6/uL (4.00-5.40); WHITE BLOOD COUNT 8.5 10^3/uL (4.0-10.0)
[2018-12-13 07:06] LABS: ALBUMIN 3.2 GM/DL (3.2-5.2); BILIRUBIN,TOTAL 0.8 MG/DL (0.2-1.0); CALCIUM LEVEL 8.9 MG/DL (8.8-10.2); CREATININE FOR GFR 1.81 MG/DL (0.55-1.30); GLOMERULAR FILTRATION RATE 28.5 (>32); MAGNESIUM LEVEL 1.9 MG/DL (1.8-2.4); POTASSIUM SERUM 4.3 MEQ/L (3.5-5.1); TOTAL PROTEIN 6.5 GM/DL (6.4-8.2)
[2018-12-13] MEDS ORDERED: LORazepam 2 MG/ML VIAL (J2060) IV ONE (09:00)
[2018-12-13] MEDS: VALSARTAN 80 MG TAB (DIOVAN) PO SCH (09:00)
[2018-12-13] MEDS: CARVedilol 12.5 MG TAB PO SCH ×2 (09:00→20:57)
[2018-12-13] MEDS: LIDOCAINE 5% (LIDODERM) PATCH TD SCH (09:16)
[2018-12-13] MEDS: ENOXAPARIN 40 MG/0.4 ML SYRINGE (J1650) SC SCH (09:16)
[2018-12-13] MEDS: HumaLOG INSULIN (NovoLOG) PER UNIT SC SCH ×4 (09:17→20:57)
[2018-12-13] MEDS: glipiZIDE XL 5 MG TABCR PO SCH (09:18)
[2018-12-13] MEDS: DOCUSATE SODIUM 100 MG CAP PO SCH ×2 (09:18→20:57)
[2018-12-13] MEDS: MONTELUKAST 10 MG TAB PO SCH (09:18)
[2018-12-13 09:20] VITALS: BP_SYST 72; BP_SYST 80; BP_DIAS 37; BP_DIAS 50
--- NOTE | 2018-12-13 10:41 | IPNPDOC ---
Subjective Date Seen The patient was seen on 12/13/18. Subjective Chief Complaint/HPI Right buttock pain is slightly better but still there. She had refused MRI last night and will be done today General: Denies: ROS Unobtainable, Chills, Night Sweats, Fatigue, Malaise, Normal Appetite, Other Symptoms Skin: Denies: Rash, Lesions, Jaundice, Bruising, Itching, Dry, Breakdown, Nail Changes, Other Pulmonary: Denies: Dyspnea, Cough, Pleuritic Chest Pain, Other Symptoms Cardiovascular: Denies: Chest Pain, Palpitations, Orthopnea, Paroxysmal Noc. Dyspnea, Edema, Lt Headedness, Other Symptoms Gastrointestinal: Denies: Nausea, Vomiting, Abdominal Pain, Diarrhea, Constipation, Melena, Hematochezia, Other Symptoms Musculoskeletal: Reports: Other Symptoms (positive tenderness on the right buttock on palpation at ischial tuberosity) Neurological: Denies: Weakness, Numbness, Incoordination, Change in speech, Confusion, Seizures, Other Symptoms Objective Physical Examination Chest Exam: Positive: Clear to auscultation, Normal air movement Heart Exam: Positive: Rate Normal, Normal S1, Normal S2 Abdomen Exam: Positive: Normal bowel sounds, Soft Extremity Exam: Positive: Other (. Positive point tenderness in the middle of her buttocks about the ischial tuberosity on the right side. No mass palpated) Skin Exam: Positive: Nl turgor and temperature Neuro Exam: Positive: Strength at 5/5 X4 ext, Sensation Intact Psych Exam: Positive: Mood NL, Oriented x 3 Assessment /Plan Problems (1) Right buttock pain Status: Acute Problem Text: All workup including x-ray and CT of the right hip has been negative, but we will require MRI of the right hip to rule out any ligament and tendon abnormality Patient is slightly improved with pain medication, even though it has caused mild decrease in her blood pressure will hold all antihypertensive meds in the meantime Continue pain management MRI today Physical therapy to evaluate patient today (2) HTN (hypertension) Status: Chronic Problem Text: Hold all antihypertensive meds secondary to hypertension secondary to pain management Will monitor closely and restart when needed (3) Diabetes mellitus Status: Chronic Problem Text: Fingerstick blood sugar daily CHF with coverage Continue home meds (4) CKD (chronic kidney disease) stage 3, GFR 30-59 ml/min Status: Chronic Problem Text: Most likely secondary to diabetes mellitus and hypertension Continue monitoring renal functions Plan/VTE VTE Prophylaxis Ordered?: Yes VS, I&O, 24H, Fishbone Vital Signs/I&O Vital Signs Date Time Temp Pulse Resp B/P (MAP) Pulse Ox O2 Delivery O2 Flow Rate FiO2 12/13/18 09:00 70/50 12/13/18 09:00 77 12/13/18 06:14 16 12/13/18 05:45 100.0 95 Nasal Cannula 2.0 I&O- Last 24 Hours up to 6 AM 12/13/18 06:00 Intake Total 700 ml Output Total 300 ml Balance 400 ml Laboratory Data 24H LABS Laboratory Tests 2 12/12/18 22:51: Bedside Glucose (Misc Panel) 138H 12/13/18 06:12: Nucleated Red Blood Cells % (auto) 0.0, Anion Gap 5L, Glomerular Filtration Rate 28.5L, Calcium Level 8.9, Magnesium Level 1.9, Total Bilirubin 0.8, Aspartate Amino Transf (AST/SGOT) 36, Alanine Aminotransferase (ALT/SGPT) 28, Alkaline Phosphatase 88, Total Protein 6.5, Albumin 3.2, Albumin/Globulin Ratio 0.97L CBC/BMP Laboratory Tests 12/13/18 06:12 VERO GARCIA MD Dec 13, 2018 10:41
[2018-12-13 11:00] VITALS: BP 108/70
[2018-12-13 13:16] VITALS: BP 120/75
[2018-12-13] MEDS: NYSTATIN 100,000 UNITS/GM TOPICAL PWD 15 GM TOP SCH ×2 (17:14→20:59)
[2018-12-13] MEDS: AMITRIPTYLINE 50 MG TAB PO SCH (20:56)
[2018-12-13] MEDS: GABAPENTIN 300 MG CAP PO SCH (20:56)
[2018-12-13] MEDS: EZETIMIBE 10 MG TAB (ZETIA) PO SCH (20:56)
[2018-12-13] MEDS: rOPINIRole 1MG TAB PO SCH (20:57)
[2018-12-13] MEDS: **NOTE PATIENT COMMENT** MISC XX SCH (20:59)
[2018-12-13 22:00] VITALS: BP 129/65
[2018-12-14 05:52] VITALS: BP 149/70
[2018-12-14] MEDS: HumaLOG INSULIN (NovoLOG) PER UNIT SC SCH ×4 (07:01→20:12)
[2018-12-14] MEDS: CARVedilol 12.5 MG TAB PO SCH ×2 (08:13→20:10)
[2018-12-14] MEDS: DOCUSATE SODIUM 100 MG CAP PO SCH ×2 (08:13→20:09)
[2018-12-14] MEDS: MONTELUKAST 10 MG TAB PO SCH (08:14)
[2018-12-14] MEDS: VALSARTAN 80 MG TAB (DIOVAN) PO SCH (08:14)
[2018-12-14] MEDS: glipiZIDE XL 5 MG TABCR PO SCH (08:14)
[2018-12-14] MEDS: LIDOCAINE 5% (LIDODERM) PATCH TD SCH (08:14)
[2018-12-14] MEDS: NYSTATIN 100,000 UNITS/GM TOPICAL PWD 15 GM TOP SCH ×2 (08:15→20:10)
[2018-12-14] MEDS: ENOXAPARIN 40 MG/0.4 ML SYRINGE (J1650) SC SCH (08:15)
--- NOTE | 2018-12-14 08:35 | REP ---
MRI right hip without contrast: History: Right hip pain. Comparison is made with CT study of the right hip from 12/12/2018 and radiographs from the same date. Technique: Coronal T1 and T2-weighted scans were obtained with and without fat saturation including both hips. T2-weighted fat sat images were acquired in all three planes of the right hip with a smaller field of view high resolution imaging. Findings: There is a 6 mm subcortical cyst at the head neck junction of the proximal femur. Otherwise, cortical and medullary bone signal intensity are normal in the proximal femurs bilaterally. There is mild osteoarthritic spurring at the right hip articulation. No significant effusion is seen. Cortical and medullary bone signal intensity are normal in the visualized bony pelvis and sacrum. No soft tissue mass is seen with in the pelvis. No adenopathy noted. There is some T2 hyperintensity at the hamstring tendon insertion on the ischium bilaterally, right greater than left. This may relate to hamstring tendon insertion in partial injury or tendinosis tendonitis change. There is some bony tendon insertion site spurring bilaterally at this location as well. Similar tendon insertion site spurring is noted in the greater trochanter bilaterally as well. This may reflect enthesopathy. No other area of significant T2 hyperintensity or edema. There is no evidence of occult fracture. Impression: Bilateral hip osteoarthritis mild in degree. Tendon insertion site spurring on the greater trochanters bilaterally and enthesopathy. Tendonitis versus partial tear of the hamstring tendon insertions bilaterally, right greater than left. Electronically Signed by Sarwat Reid MD 12/14/2018 09:10 A
[2018-12-14] MEDS: MORPHINE 4 MG/ML 1ML VIAL/SYRINGE (J2270) IV PRN (08:44)
[2018-12-14] MEDS: traMADol 50 MG TAB PO PRN (08:45)
--- NOTE | 2018-12-14 09:55 | IPNPDOC ---
Subjective Date Seen The patient was seen on 12/14/18. Subjective Chief Complaint/HPI Special level to move from bed to her bathroom with a walker still has some pain in his spasm but has refused anti-spasmatic meds General: Denies: ROS Unobtainable, Chills, Night Sweats, Fatigue, Malaise, No rmal Appetite, Other Symptoms Constitutional: Denies: Chills, Fever, Malaise, Night Sweats, Weakness, Fati sima, Weight Loss, Lethargy, Other Pulmonary: Denies: Dyspnea, Cough, Pleuritic Chest Pain, Other Symptoms Cardiovascular: Denies: Chest Pain, Palpitations, Orthopnea, Paroxysmal Noc. Dyspnea, Edema, Lt Headedness, Other Symptoms Gastrointestinal: Denies: Nausea, Vomiting, Abdominal Pain, Diarrhea, Constipation, Melena, Hematochezia, Other Symptoms Musculoskeletal: Denies: Neck Pain, Back Pain, Shoulder Pain, Arm Pain, Hand Pain, Leg Pain, Foot Pain, Joint Pain, Muscle Pain, Spasms, Other Symptoms Neurological: Denies: Weakness, Numbness, Incoordination, Change in speech, Confusion, Seizures, Other Symptoms Objective Physical Examination Chest Exam: Positive: Clear to auscultation, Normal air movement Heart Exam: Positive: Rate Normal, Normal S1, Normal S2 Abdomen Exam: Positive: Normal bowel sounds, Soft Extremity Exam: Positive: Other (. Positive point tenderness in the middle of her buttocks about the ischial tuberosity on the right side. No mass palpated) Skin Exam: Positive: Nl turgor and temperature Neuro Exam: Positive: Strength at 5/5 X4 ext, Sensation Intact Psych Exam: Positive: Mood NL, Oriented x 3 Assessment /Plan Problems (1) Tendinitis Status: Acute Problem Text: Patient MRI is consistent with tendinitis versus partial tear of the bilateral hamstring muscle insertion, right more than left Patient is can ambulate from a bed to bathroom with a walker Physical therapy evaluation today Orthopedic consult, further recommendations Continue pain management (2) HTN (hypertension) Status: Chronic Problem Text: Will restart patient's home antihypertensive meds again Patient. Blood pressures is slowly increasing . (3) Diabetes mellitus Status: Chronic Problem Text: Fingerstick blood sugar daily CHF with coverage Continue home meds (4) CKD (chronic kidney disease) stage 3, GFR 30-59 ml/min Status: Chronic Problem Text: Most likely secondary to diabetes mellitus and hypertension Continue monitoring renal functions Plan/VTE VTE Prophylaxis Ordered?: Yes VS, I&O, 24H, Fishbone Vital Signs/I&O Vital Signs Date Time Temp Pulse Resp B/P (MAP) Pulse Ox O2 Delivery O2 Flow Rate FiO2 12/14/18 08:45 18 Room Air 12/14/18 08:14 149/70 12/14/18 08:13 84 12/14/18 05:52 97.7 90 12/13/18 22:00 2.0 I&O- Last 24 Hours up to 6 AM 12/14/18 06:00 Intake Total 1480 ml Output Total 1025 ml Balance 455 ml Laboratory Data 24H LABS Laboratory Tests 2 12/13/18 11:35: Bedside Glucose (Misc Panel) 128H 12/13/18 17:21: Bedside Glucose (Misc Panel) 102 12/13/18 20:56: Bedside Glucose (Misc Panel) 130H 12/14/18 06:49: Bedside Glucose (Misc Panel) 97 VERO GARCIA MD Dec 14, 2018 09:55
[2018-12-14] MEDS ORDERED: PERCOCET 5MG/325MG TAB PO PRN (10:00)
[2018-12-14] MEDS: PERCOCET 5MG/325MG TAB PO PRN (10:35)
[2018-12-14 14:13] VITALS: BP 102/60
--- NOTE | 2018-12-14 16:46 | CR ---
DATE OF CONSULTATION: 12/14/2018 INDICATION: Right hip pain. HISTORY OF PRESENT ILLNESS: Katina is an 82-year-old female with a history of degenerative disc disease, right hip pain who sees a provider down in [place] and gets intermittent injections, who was admitted to the hospital 2 days ago for worsening right hip pain. She denies falling. Her most recent injection was 2 months ago; it was a lower back injection. She believes her last intra-articular image-guided hip cortisone shot was about 7 months ago. She is reporting primarily anterior and lateral hip pain. Denies numbness or tingling in her foot. For the patient's full past medical history, past surgical history, medications, allergies, social history and review of systems, please see the admitting history and physical, which I reviewed. Physical exam reveals an elderly female in no distress. She is alert and oriented times three, but falls asleep easily. Pulmonary: Nonlabored breathing. Cardiovascular: She has a 2+ dorsalis pedis pulse. Musculoskeletal: The patient has no groin pain with log roll or axial load. She has 5/5 strength extensor hallucis longus (EHL), flexor hallucis longus (FHL), tibialis anterior (TA) and gastroc soleus (GS). Sensation to light touch in her foot is intact. The patient has significant tenderness to palpation at the greater trochanter. X-rays and MRI of the right hip were obtained and are available for my review. She has calcific tendonitis at the greater trochanter consistent with MRI findings of trochanteric bursitis and partial tearing of the gluteus medius. MRI also reveals tearing but minimal retraction of the hamstring tendons as they attach to the ischium. Less than 5 mm displacement. There are no signs of fracture on the hip MRI, no significant joint effusion, and she does have degenerative changes. ASSESSMENT/PLAN: Katina has right hip pain for multiple reasons including hip arthritis, trochanteric bursitis with partial gluteus medius tear, and a proximal hamstring tear. There are no indications for surgery. We discussed indications for proximal hamstring repairs, tearing with displacement greater than 3 cm in a highly active individual and her displacement is minimal. At this point, my recommendation would be to mobilize with physical therapy, use anti-inflammatories as appropriate, and they would like to start by following up with her provider in [place] who is likely retiring soon. If they would like to be followed in our office here in [place], I would recommend starting with Yosef Jorge, Physician Health Spa Manager, who could do an intake and likely get her set up with image-guided cortisone shots for her lower back with Dr. Vera. She could also see one of our other physician assistants (PAs) and get a trochanteric bursal injection and then have an image guided intra-articular hip injection ordered on an outpatient basis. The patient can be weightbearing as tolerated with a walker. These recommendations were relayed to the patient and .
[2018-12-14 20:00] VITALS: BP 122/68
[2018-12-14] MEDS: rOPINIRole 1MG TAB PO SCH (20:08)
[2018-12-14] MEDS: AMITRIPTYLINE 50 MG TAB PO SCH (20:08)
[2018-12-14] MEDS: EZETIMIBE 10 MG TAB (ZETIA) PO SCH (20:09)
[2018-12-14] MEDS: GABAPENTIN 300 MG CAP PO SCH (20:09)
[2018-12-14] MEDS: **NOTE PATIENT COMMENT** MISC XX SCH (20:10)
[2018-12-15 06:00] VITALS: BP 109/61
[2018-12-15] MEDS: HumaLOG INSULIN (NovoLOG) PER UNIT SC SCH ×2 (07:30→12:51)
[2018-12-15] MEDS: ENOXAPARIN 40 MG/0.4 ML SYRINGE (J1650) SC SCH (08:20)
[2018-12-15] MEDS: LIDOCAINE 5% (LIDODERM) PATCH TD SCH (08:20)
[2018-12-15] MEDS: CARVedilol 12.5 MG TAB PO SCH (08:22)
[2018-12-15 08:23] VITALS: BP 108/61
[2018-12-15] MEDS: VALSARTAN 80 MG TAB (DIOVAN) PO SCH (08:23)
[2018-12-15] MEDS: NYSTATIN 100,000 UNITS/GM TOPICAL PWD 15 GM TOP SCH (08:23)
[2018-12-15] MEDS: MONTELUKAST 10 MG TAB PO SCH (08:23)
[2018-12-15] MEDS: DOCUSATE SODIUM 100 MG CAP PO SCH (08:23)
[2018-12-15] MEDS: glipiZIDE XL 5 MG TABCR PO SCH (08:24)
[2018-12-15] MEDS: PERCOCET 5MG/325MG TAB PO PRN ×2 (08:24→12:51)
--- NOTE | 2018-12-15 11:02 | IPNPDOC ---
Subjective Date Seen The patient was seen on 12/15/18. Subjective Chief Complaint/HPI Zaira is still complains of some is spasm but refuses to take any anti- spasmodic meds but pain is much under control with current therapy General: Denies: ROS Unobtainable, Chills, Night Sweats, Fatigue, Malaise, Normal Appetite, Other Symptoms Constitutional: Denies: Chills, Fever, Malaise, Night Sweats, Weakness, Fatigue, Weight Loss, Lethargy, Other Pulmonary: Denies: Dyspnea, Cough, Pleuritic Chest Pain, Other Symptoms Cardiovascular: Denies: Chest Pain, Palpitations, Orthopnea, Paroxysmal Noc. Dyspnea, Edema, Lt Headedness, Other Symptoms Gastrointestinal: Denies: Nausea, Vomiting, Abdominal Pain, Diarrhea, Constipat ion, Melena, Hematochezia, Other Symptoms Musculoskeletal: Reports: Other Symptoms (. Right buttock pain) Objective Physical Examination Chest Exam: Positive: Clear to auscultation, Normal air movement Heart Exam: Positive: Rate Normal, Normal S1, Normal S2 Abdomen Exam: Positive: Normal bowel sounds, Soft Extremity Exam: Positive: Other (. Positive point tenderness in the middle of her buttocks about the ischial tuberosity on the right side. No mass palpated) Skin Exam: Positive: Nl turgor and temperature Neuro Exam: Positive: Strength at 5/5 X4 ext, Sensation Intact Psych Exam: Positive: Mood NL, Oriented x 3 Assessment /Plan Problems (1) Tendinitis Status: Acute Problem Text: Patient's pain, most likely secondary to bilateral hip arthritis, right more than left trochanteric bursitis with partial gluteus medius tear and proximal hamstring tear on right side MRI is consistent with tendinitis versus partial tear of the bilateral hamstring muscle insertion, right more than left Discussed with Dr. Balderramawith he saw the patient and has recommended conservative medical medical management with the pain management with anti-inflammatory agents also has recommended possible trochanteric bursal injections imaging guided intra-articular hip injection as an outpatient either with patient's home orthopedic at [place] are with Dr. Balderrama with Patient wishes to go and follow up with her own orthopedic surgeon at [place] Physical therapy is in progress Patient can be discharged home once cleared by the physical therapy (2) HTN (hypertension) Status: Chronic Problem Text: Will restart patient's home antihypertensive meds again Patient. Blood pressures is slowly increasing . (3) Diabetes mellitus Status: Chronic Problem Text: Fingerstick blood sugar daily CHF with coverage Continue home meds (4) CKD (chronic kidney disease) stage 3, GFR 30-59 ml/min Status: Chronic Problem Text: Most likely secondary to diabetes mellitus and hypertension Continue monitoring renal functions Plan/VTE VTE Prophylaxis Ordered?: Yes VS, I&O, 24H, Fishbone Vital Signs/I&O Vital Signs Date Time Temp Pulse Resp B/P (MAP) Pulse Ox O2 Delivery O2 Flow Rate FiO2 12/15/18 08:54 18 Room Air 12/15/18 08:23 108/61 12/15/18 08:22 70 12/15/18 06:00 96.0 96 12/14/18 20:09 2.0 I&O- Last 24 Hours up to 6 AM 12/15/18 06:00 Intake Total 1500 ml Output Total 400 ml Balance 1100 ml Laboratory Data 24H LABS Laboratory Tests 2 12/14/18 11:58: Bedside Glucose (Misc Panel) 128H 12/14/18 16:54: Bedside Glucose (Misc Panel) 78L 12/14/18 20:11: Bedside Glucose (Misc Panel) 117H 12/15/18 07:36: Bedside Glucose (Misc Panel) 99 VERO GARCIA MD Dec 15, 2018 11:02
[2018-12-15] MEDS ORDERED: PERCOCET PO (12:28)
[2018-12-15] MEDS ORDERED: MELO7.5T35 PO (12:28)
--- NOTE | 2018-12-15 12:57 | DS.PDOC ---
Discharge Summary General Date of Admission Dec 13, 2018 at 15:10 Date of Discharge 12/15/18 Discharge Summary PROCEDURES PERFORMED DURING STAY: None. ADMITTING DIAGNOSES: 1. Right buttock pain, difficulty ambulation DISCHARGE DIAGNOSES: 1. [Acute tendinitis of hamstrings muscles bilaterally, possible partial tear right hemistring, hypertension, CK D, diabetes mellitus COMPLICATIONS/CHIEF COMPLAINT: Hip Pain. HISTORY OF PRESENT ILLNESS: his is a 82 years old white female with past medical history of diabetes mellitus, hypertension, colitis, arthritis, diverticulitis, pneumonia, glaucoma are ill as obstructive sleep apnea on CPAP, fibromyalgia, renal cell carcinoma. Follows up with Dr. Steven and had recently. Bone scan of body done which shows arthritis of hips and knees presented with the chief complaints of severe right buttock pain, nonradiating, persistent since last 2 nights. She is unable to sleep or function secondary to pain. Pain does not radiate to lower limb artwork the spine, not associated with fever, nausea, vomiting or weakness of right lower extremity. In ED, patient had a CT of the right hip done, which essentially showed osteoarthritis and tendon spurring but no acute fracture, patient being admitted for pain management and physical therapy evaluation.. HOSPITAL COURSE: Patient was admitted with severe pain in the right buttock unable to lie down or ambulate and. X-ray of the right hip. Initially was questionable fracture, but CT of the right hip showed no fracture. MRI of the right hip was obtained which was consistent with bilateral tendinitis versus partial tear of hamstring muscles, right more than left Ration was initially started on pain management and physical therapy consultation was called. Patient progressively improved very well with pain management and physical therapy' Patient's pain, most likely secondary to bilateral hip arthritis, right more than left trochanteric bursitis with partial gluteus medius tear and proximal hamstring tear on right side MRI is consistent with tendinitis versus partial tear of the bilateral hamstring muscle insertion, right more than left Discussed with Dr. Hernandez he saw the patient and has recommended conservative medical medical management with the pain management with anti-inflammatory agents also has recommended possible trochanteric bursal injections imaging guided intra-articular hip injection as an outpatient either with patient's home orthopedic at [place] are with Dr. Balderrama with Patient wishes to go and follow up with her own orthopedic surgeon at [place] will be discharged home today. She is been cleared by the physical therapy . DISCHARGE MEDICATIONS: Please see below. ALLERGIES: Please see below. PHYSICAL EXAMINATION ON DISCHARGE: VITAL SIGNS: Please see below. GENERAL: Within normal limits HEENT: PERRLA. Extraocular muscles intact NECK: Supple CARDIOVASCULAR EXAMINATION: S1, S2, regular RESPIRATORY EXAMINATION: Clear to A&P ABDOMINAL EXAMINATION: , Soft, nontender, bowel sounds present EXTREMITIES: No clubbing, cyanosis, edema. Mild tenderness in the right buttock on deep palpation SKIN: Within normal limits NEUROLOGICAL EXAMINATION: Focal motor sensory deficit PSYCHIATRIC EXAMINATION: Limits LABORATORY DATA: Please see below. IMAGING: MRI lateral hips :Bilateral hip osteoarthritis mild in degree. Tendon insertion site spurring on the greater trochanters bilaterally and enthesopathy. Tendonitis versus partial tear of the hamstring tendon insertions bilaterally, right greater than left. PROGNOSIS: Good ACTIVITY: As tolerated. DIET: [As tolerated, consistent carbohydrate diet DISCHARGE PLAN: Follow with Dr. cabrera at [place] DISPOSITION: . Home DISCHARGE INSTRUCTIONS: 1. As per discharge instructions. ITEMS TO FOLLOWUP ON ON OUTPATIENT: 1. Follow with patient's orthopedic as an outpatient at [place]. DISCHARGE CONDITION: Stable. TIME SPENT ON DISCHARGE: 35 minutes. Vital Signs/I&Os Vital Signs Date Time Temp Pulse Resp B/P (MAP) Pulse Ox O2 Delivery O2 Flow Rate FiO2 12/15/18 12:51 18 Room Air 12/15/18 08:23 108/61 12/15/18 08:22 70 12/15/18 06:00 96.0 96 12/14/18 20:09 2.0 I&O- Last 24 Hours up to 6 AM 12/15/18 06:00 Intake Total 1500 ml Output Total 400 ml Balance 1100 ml Laboratory Data Labs 24H Laboratory Tests 2 12/14/18 16:54: Bedside Glucose (Misc Panel) 78L 12/14/18 20:11: Bedside Glucose (Misc Panel) 117H 12/15/18 07:36: Bedside Glucose (Misc Panel) 99 12/15/18 11:45: Bedside Glucose (Misc Panel) 161H FSBS Laboratory Tests Test 12/14/18 16:54 12/14/18 20:11 12/15/18 07:36 12/15/18 11:45 Range/Units Bedside Glucose (Misc Panel) 78 117 99 161 83-110 MG/DL Discharge Medications Scheduled Allopurinol (Zyloprim) 300 Mg Tablet, 300 MG PO DAILY, (Reported) Amitriptyline HCl (Amitriptyline HCl) 75 Mg Tab, 150 MG PO QHS, (Reported) Bifidobacterium Infantis (Align) 4 Mg Capsule, 4 MG PO DAILY, (Reported) Bimatoprost (Lumigan) 50 Drop/2.5 Ml Judy, 1 DROP OU QHS, (Reported) Calcitriol (Calcitriol) 0.25 Mcg Capsule, 0.25 MCG PO 3XW, (Reported) MON, TUE, TUE Carvedilol (Carvedilol) 12.5 Mg Tab, 12.5 MG PO BID, (Reported) Cetirizine HCl (Cetirizine HCl) 10 Mg Tablet, 10 MG PO DAILY, (Reported) Ezetimibe (Zetia) 10 Mg Tab, 10 MG PO QHS, (Reported) Famotidine (Pepcid) 40 Mg Tab, 40 MG PO DAILY, (Reported) Gabapentin (Neurontin) 300 Mg Cap, 300 MG PO QPM, (Reported) 1 HOUR BEFORE BEDTIME Glipizide (Glipizide Xl) 5 Mg Tab, 5 MG PO DAILY, (Reported) Insulin Human Lispro (Novolog) 100 U/Ml Inj, 1 DOSE SC AC, (Reported) SLIDING SCALE Levothyroxine Sodium (Synthroid) 50 Mcg Tablet, 50 MCG PO QAM, (Reported) Lidocaine (Lidoderm) 5% Adh..patch, 1 PATCH TD DAILY, (Reported) Remove patch after 12 hours APPLY TO LOWER BACK AND HIP Meloxicam (Meloxicam) 7.5 Mg Tablet, 7.5 MG PO QHS Montelukast Sodium (Singulair) 10 Mg Tab, 10 MG PO DAILY, (Reported) Multivitamins (Thera M Plus Tablet) 1 Tab Tab, 1 TAB PO DAILY, (Reported) Olmesartan Medoxomil (Olmesartan Medoxomil) 20 Mg Tablet, 20 MG PO DAILY, (Reported) Olopatadine HCl (Olopatadine HCl) 0.1% 5ML Drops, 1 DROP OU BID, (Reported) Omeprazole (Omeprazole) 20 Mg Capsule.dr, 20 MG PO DAILY, (Reported) Ropinirole HCl (Ropinirole HCl) 1 Mg Tab, 4 MG PO QHS, (Reported) Scheduled PRN Acetaminophen with Codeine (Acetaminophen-Cod #3 Tablet) 1 Tab Tab, 1 TAB PO Q6H PRN for PAIN, (Reported) Colestipol HCl (Colestid) 1 Gm Tablet, 1 GM PO DAILY PRN for DIARRHEA, (Reported) Nystatin (Nystatin) 15 Gm Cream..g., 1 APPLIC TOP BID PRN for IRRITATION, (Reported) APPLY UNDER BREASTS Nystatin (Nystatin Powder) 15 Gm Powder, 1 APPLIC TOP BID PRN for IRRITATION, (Reported) APPLY UNDER BREASTS Oxycodone/Acetaminophen (Oxycodone-Acetaminophen 5-325) 1 Each Tablet, 1 TAB PO Q4HP PRN for pain Allergies Coded Allergies: Sulfa (Sulfonamide Antibiotics) (Verified Allergy, Severe, 12/12/18) Contrast Media (Verified Allergy, Intermediate, 12/12/18) patient had kidney removed VERO GARCIA MD Dec 15, 2018 12:57
[2018-12-15] MEDS ORDERED: MELOXICAM (MOBIC) 7.5 MG TAB PO SCH (21:00)
== END 2018-12-15 15:00 | disposition home or self-care (01) | DRG 558 ==
LOC: M ED 08:52 → EDBD 08:52 → M ED INP 08:53 → M MS5PR 18:21 → OBSVTOIN 12-13 15:10
PROVIDERS: ADMIT Internal Medicine; ATTEND Internal Medicine
DX: M70.61 Trochanteric bursitis, right hip (principal); E11.22 Type 2 diabetes mellitus with diabetic chronic kidney disease; I10 Essential (primary) hypertension; K52.9 Noninfective gastroenteritis and colitis, unspecified; M17.0 Bilateral primary osteoarthritis of knee; H40.9 Unspecified glaucoma; G47.33 Obstructive sleep apnea (adult) (pediatric); M79.7 Fibromyalgia; N18.3 Chronic kidney disease, stage 3 (moderate); M16.0 Bilateral primary osteoarthritis of hip; Z79.4 Long term (current) use of insulin; Z79.899 Other long term (current) drug therapy; Z88.2 Allergy status to sulfonamides; Z91.041 Radiographic dye allergy status; Z96.653 Presence of artificial knee joint, bilateral; Z90.49 Acquired absence of other specified parts of digestive tract; Z90.5 Acquired absence of kidney; Z85.528 Personal history of other malignant neoplasm of kidney; Z98.49 Cataract extraction status, unspecified eye

== ENCOUNTER → 2019-03-23 | Outpatient (CLI) | payer MEDICARE, OTHER ==
[~2019-03-23] MED LIST changes: +ALIG4CAP PO; +CALC1CAP31 PO; +CETI10TA4 PO; +COLE1TA PO; +LIDO5DIS41 TD; +MELO7.5T35 PO; +NYST10CR TOP; +NYST1POW9 TOP; +OLME20TA2 PO; +OLOP0.1D OU; +OMEP-218 PO; +OMEP1CAP73 PO; -OMEP20CA4 PO; +PERCOCET PO; -ROPI1TAB PO; +ROPI1TAB3 PO; -ROPI2TAB PO; +ROPI2TAB3 PO; +SYNT50TA PO
--- NOTE | 2019-03-23 14:06 | REPMRS ---
Patient History The patient states she had a clinical breast exam in 2019. Family history of breast cancer at age 50 or over in sister, breast cancer under age 50 in paternal aunt, colorectal cancer at age 50 or over in maternal grandmother. Benign excisional biopsy of the left breast, 1994. Benign excisional biopsy of the right breast, 1979. Digital Woman Screen Mammo: March 23, 2019 - Exam #: [id number] Bilateral CC and MLO view(s) were taken. Technologist: Jennifer Zayas, Technologist Prior study comparison: December 21, 2017, bilateral digital woman screen mammo performed at [facility] and [facility] [place]. FINDINGS: There are scattered fibroglandular densities. There has been no change in the appearance of the mammogram from the prior studies. There is a mild amount of scattered fibroglandular density which is fairly symmetric. There is no interval development of dominant mass, architectural distortion, or grouped microcalcification suggestive of malignancy. 3-D tomosynthesis shows no additional findings. Assessment: BI-RADS/ACR category 1 mammogram. Negative Mammogram. Recommendation Routine screening mammogram of both breasts in 1 year (for women over age 40). This patient's Lifetime Breast Cancer Risk is estimated at 1.7 %. This mammogram was interpreted with the aid of an FDA-approved computer-aided dectection system. Electronically Signed By: Munir Reid MD 03/23/19 [id number]
== END ==
LOC: M WHC 12:50
PROVIDERS: ATTEND Physician Assistant
DX: Z12.31 Encounter for screening mammogram for malignant neoplasm of breast (principal)

== ENCOUNTER → 2019-08-19 | Outpatient (CLI) | payer MEDICARE, OTHER ==
[~2019-08-19] MED LIST changes: -ASPI81TA85 PO; +ASPI81TA86 PO
== END ==
LOC: M LABSMTC 10:56
PROVIDERS: ATTEND Family Medicine Sports Medicine
DX: Z11.59 Encounter for screening for other viral diseases (principal)
CPT/HCPCS: C9803; U0003

== ENCOUNTER → 2019-10-11 | Outpatient (CLI) | payer MEDICARE, OTHER | LOC: M LABSMTC 12:45 | PROVIDERS: ATTEND Family Medicine Sports Medicine | DX: Z20.828 Contact with and (suspected) exposure to other viral communicable diseases (principal) | CPT/HCPCS: C9803; U0003 ==

== ENCOUNTER → 2020-05-30 | Outpatient (REF) | payer MEDICARE, OTHER ==
[~2020-05-30] MED LIST changes: +GABA-282 PO; -GABA-843 PO
[2020-05-30 17:54] LABS: PERCENT SATURATION 20.4 % (13.2-45.0)
== END ==
LOC: M LAB REF 16:35
PROVIDERS: ATTEND Internal Medicine Nephrology
DX: D50.9 Iron deficiency anemia, unspecified (principal)

== ENCOUNTER → 2020-07-01 | Outpatient (CLI) | payer MEDICARE, OTHER ==
--- NOTE | 2020-07-01 15:38 | REPMRS ---
Patient History The patient states she had a clinical breast exam in May 27, 2020. Patient is postmenopausal and has history of other cancer at age 82. Family history of breast cancer at age 50 or over in sister, breast cancer under age 50 in paternal aunt, colorectal cancer at age 50 or over in maternal grandmother. Benign excisional biopsy of the left breast, 1994. Benign excisional biopsy of the right breast, 1979. Moderna vaccine 02/21/20 right arm. 03/19/20 left arm. Patient states no breast complaints today. Patient has signed MRS History Sheet. Digital Woman Screen Mammo: July 01, 2020 - Exam #: [id number] Bilateral CC and MLO view(s) were taken. Technologist: RT Terell Prior study comparison: March 23, 2019, bilateral digital woman screen mammo performed at [facility]. December 21, 2017, bilateral digital woman screen mammo performed at [facility]. 2015, bilateral digital mammo screening bilat, performed at [facility]. FINDINGS: There are scattered fibroglandular densities. The Volpara volumetric breast density category is:B. There has been no change in the appearance of the mammogram from the prior studies. There is a mild amount of scattered fibroglandular density which is fairly symmetric. There is no interval development of dominant mass, architectural distortion, or grouped microcalcification suggestive of malignancy. 3-D tomosynthesis shows no additional findings. Assessment: BI-RADS/ACR category 1 mammogram. Negative Mammogram. Recommendation Routine screening mammogram of both breasts in 1 year (for women over age 40). This patient's [facility] Lifetime Breast Cancer Risk is estimated at 0.9 %. This mammogram was interpreted with the aid of an FDA-approved computer-aided dectection system. Electronically Signed By: Munir Reid MD 07/01/20 [id number]
== END ==
LOC: M WHC 13:04
PROVIDERS: ATTEND Nurse Practitioner
DX: Z12.31 Encounter for screening mammogram for malignant neoplasm of breast (principal)

== ENCOUNTER → 2020-09-20 | Outpatient (CLI) | payer MEDICARE, OTHER ==
--- NOTE | 2020-09-20 14:26 | REPVR ---
PROCEDURE INFORMATION: Exam: MR Thoracic Spine Without Contrast Exam date and time: 09/20/2020 12:50 PM Age: 84 years old Clinical indication: Pain in thoracic spine; With radiculopathy; Bilateral; Additional info: Radiculopathy, pain, thoracic region TECHNIQUE: Imaging protocol: Multiplanar magnetic resonance images of the thoracic spine without intravenous contrast. COMPARISON: NM Bone Scan Whole Body 09/07/2018 10:24 AM FINDINGS: Vertebrae: There is abnormal decreased signal noted within the T2 vertebral body which extends into the pedicles and the posterior elements. The abnormality is not as evident on the STIR sequence. On the non fat suppressed T2 weighted sequence of the vertebral body remains dark involving the pedicles and posterior elements. Spinal cord: Normal signal. No cord compression. T1-T2: No significant disc disease. No significant spinal canal stenosis. T2-T3: No significant disc disease. No significant spinal canal stenosis. T3-T4: No significant disc disease. No significant spinal canal stenosis. T4-T5: Posterior disc osteophyte ridge asymmetric to the left with narrowing of the left lateral recess and impression upon the left anterior margin of the thecal sac and spinal cord. No significant spinal canal stenosis. T5-T6: Posterior disc osteophyte ridge. 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 No significant spinal canal stenosis. T6-T7: Posterior disc osteophyte ridge.. No significant spinal canal stenosis. T7-T8: No significant disc disease. No significant spinal canal stenosis. T8-T9: No significant disc disease. No significant spinal canal stenosis. T9-T10: No significant disc disease. No significant spinal canal stenosis. T10-T11: No significant disc disease. No significant spinal canal stenosis. T11-T12: No significant disc disease. No significant spinal canal stenosis. Soft tissues: Unremarkable. IMPRESSION: Infiltrative lesion in the T2 vertebral body. 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 DDD Electronically signed by: Evelin Guido On 09/20/2020 14:25:59 PM
== END ==
LOC: M RAD 11:49
PROVIDERS: ATTEND Family Medicine Sports Medicine
DX: M54.5 Low back pain (principal)

== ENCOUNTER → 2020-10-31 | Outpatient (CLI) | payer MEDICARE, OTHER | LOC: M LABSMTC 09:27 | PROVIDERS: ATTEND Family Medicine Sports Medicine | DX: Z20.822 Contact with and (suspected) exposure to COVID-19 (principal) ==

== ENCOUNTER → 2020-11-27 | Outpatient (CLI) | payer MEDICARE, OTHER | LOC: M LABSMTC 09:45 | PROVIDERS: ATTEND Family Medicine Sports Medicine | DX: Z11.52 Encounter for screening for COVID-19 (principal) ==

== ENCOUNTER → 2020-12-01 | Outpatient (REF) | payer MEDICARE, OTHER | LOC: M LAB REF 17:37 | PROVIDERS: ATTEND Internal Medicine Nephrology | DX: N18.32 Chronic kidney disease, stage 3b (principal) ==

== ENCOUNTER → 2021-04-06 | Outpatient (CLI) | payer MEDICARE, OTHER ==
[~2021-04-06] MED LIST changes: +OMEP-173 PO; -OMEP-218 PO
[2021-04-06 17:45] LABS: BASO # 0.1 10^3/uL (0.0-0.2); BASO % 0.7 % (0.0-1.0); EOS # 0.4 10^3/uL (0.0-0.5); EOS % 4.4 % (0.0-3.0); HEMATOCRIT 39.5 % (36.0-47.0); HEMOGLOBIN 12.8 g/dl (12.0-15.5); LYMPH # 2.5 10^3/uL (1.5-5.0); LYMPH % 26.6 % (24.0-44.0); MEAN CORPUSCULAR HEMOGLOBIN 28.8 pg (27.0-33.0); MEAN CORPUSCULAR HGB CONC 32.4 g/dl (32.0-36.5); MEAN CORPUSCULAR VOLUME 88.8 fl (80.0-96.0); MONO # 0.9 10^3/uL (0.0-0.8); MONO % 9.9 % (2.0-8.0); NEUTROPHILS # 5.4 10^3/uL (1.5-8.5); NEUTROPHILS % 58.2 % (36.0-66.0); PLATELET COUNT, AUTOMATED 137 10^3/uL (150-450); RED BLOOD COUNT 4.45 10^6/uL (4.00-5.40); WHITE BLOOD COUNT 9.3 10^3/uL (4.0-10.0)
[2021-04-06 18:54] LABS: ALBUMIN 3.6 GM/DL (3.2-5.2); ALT/SGPT 27 U/L (12-78); BILIRUBIN,TOTAL 0.3 MG/DL (0.2-1.0); BLOOD UREA NITROGEN 31 MG/DL (7-18); CALCIUM LEVEL 9.4 MG/DL (8.8-10.2); CARBON DIOXIDE LEVEL 28 MEQ/L (21-32); CHLORIDE LEVEL 106 MEQ/L (98-107); CREATININE FOR GFR 2.04 MG/DL (0.55-1.30); FOLATE > 24.0 NG/ML; GLOMERULAR FILTRATION RATE 24.6 (>32); GLUCOSE, FASTING 163 MG/DL (70-100); POTASSIUM SERUM 4.2 MEQ/L (3.5-5.1); RHEUMATOID FACTOR QUANT < 10.0 IU/ML (<15.0); SODIUM LEVEL 139 MEQ/L (136-145); TOTAL PROTEIN 6.8 GM/DL (6.4-8.2); VITAMIN B12 LEVEL 697 PG/ML
[2021-04-06 19:27] LABS: ERYTHROCYTE SEDIMENTATION RATE 27 mm/hr (0-30)
== END ==
LOC: M WUC 13:00
PROVIDERS: ATTEND Psychiatry & Neurology Neurology
DX: R44.3 Hallucinations, unspecified (principal); R41.3 Other amnesia

== ENCOUNTER 2021-04-16 12:30 | Emergency (ER) | payer MEDICARE, OTHER ==
[~2021-04-16] VITALS: Ht 157.5 cm; Wt 91.4 kg
[~2021-04-16 12:30] MED LIST changes: -OLOP0.1D OU; +OLOP5DRO16 OU
[2021-04-16] MEDS ORDERED: GI COCKTAIL 50ML BTL(HYOSCYAMINE/MAALOX/LIDOCAINE VISCOUS)(1:3:1) PO ONE (12:45)
[2021-04-16 13:26] LABS: BASO % 0.4 % (0.0-1.0); EOS # 0.3 10^3/uL (0.0-0.5); EOS % 2.5 % (0.0-3.0); HEMATOCRIT 36.9 % (36.0-47.0); HEMOGLOBIN 11.7 g/dl (12.0-15.5); LYMPH # 2.6 10^3/uL (1.5-5.0); LYMPH % 25.6 % (24.0-44.0); MEAN CORPUSCULAR HEMOGLOBIN 28.1 pg (27.0-33.0); MEAN CORPUSCULAR HGB CONC 31.7 g/dl (32.0-36.5); MEAN CORPUSCULAR VOLUME 88.7 fl (80.0-96.0); MONO # 1.1 10^3/uL (0.0-0.8); MONO % 10.9 % (2.0-8.0); NEUTROPHILS # 6.1 10^3/uL (1.5-8.5); NEUTROPHILS % 60.3 % (36.0-66.0); PLATELET COUNT, AUTOMATED 133 10^3/uL (150-450); RED BLOOD COUNT 4.16 10^6/uL (4.00-5.40); WHITE BLOOD COUNT 10.1 10^3/uL (4.0-10.0)
[2021-04-16 13:48] LABS: CK-MB VALUE MASS 1.9 NG/ML (<3.6); MB/CK RELATIVE INDEX 2.5 (< OR =4)
[2021-04-16 14:06] LABS: ALBUMIN 3.2 GM/DL (3.2-5.2); BILIRUBIN,DIRECT 0.1 MG/DL (0.0-0.2); BILIRUBIN,TOTAL 0.5 MG/DL (0.2-1.0); CALCIUM LEVEL 8.6 MG/DL (8.8-10.2); CREATININE FOR GFR 1.94 MG/DL (0.55-1.30); GLOMERULAR FILTRATION RATE 26.1 (>32); POTASSIUM SERUM 4.3 MEQ/L (3.5-5.1); THYROID STIMULATING HORMONE 1.53 uIU/ML (0.358-3.740); TOTAL PROTEIN 6.4 GM/DL (6.4-8.2)
[2021-04-16 14:26] LABS: CK-MB VALUE MASS 1.8 NG/ML (<3.6); MB/CK RELATIVE INDEX 2.57 (< OR =4)
[2021-04-16 15:18] VITALS: BP 126/76
== END 2021-04-16 15:22 | disposition home or self-care (01) ==
LOC: EDBD 12:30 → M ED 12:30
DX: K21.9 Gastro-esophageal reflux disease without esophagitis (principal); R07.9 Chest pain, unspecified; K59.00 Constipation, unspecified; R06.02 Shortness of breath; E11.9 Type 2 diabetes mellitus without complications; E78.5 Hyperlipidemia, unspecified; M79.7 Fibromyalgia; M54.50 Low back pain, unspecified; I12.9 Hypertensive chronic kidney disease with stage 1 through stage 4 chronic kidney disease, or unspecified chronic kidney disease; N18.9 Chronic kidney disease, unspecified; Z88.2 Allergy status to sulfonamides; Z91.041 Radiographic dye allergy status; Z79.899 Other long term (current) drug therapy

== ENCOUNTER 2021-06-22 15:03 | Emergency (ER) | payer MEDICARE, OTHER ==
[~2021-06-22] VITALS: Ht 154.9 cm; Wt 91.0 kg
[~2021-06-22 15:03] MED LIST changes: -ACET1TAB16 PO; +ACET300T48 PO
[2021-06-22 16:23] LABS: BASO % 0.5 % (0.0-1.0); EOS # 0.3 10^3/uL (0.0-0.5); EOS % 5.1 % (0.0-3.0); HEMATOCRIT 35.4 % (36.0-47.0); HEMOGLOBIN 11.4 g/dl (12.0-15.5); LYMPH # 1.8 10^3/uL (1.5-5.0); LYMPH % 29.1 % (24.0-44.0); MEAN CORPUSCULAR HEMOGLOBIN 29.1 pg (27.0-33.0); MEAN CORPUSCULAR HGB CONC 32.2 g/dl (32.0-36.5); MEAN CORPUSCULAR VOLUME 90.3 fl (80.0-96.0); MONO # 1.1 10^3/uL (0.0-0.8); MONO % 17.4 % (2.0-8.0); NEUTROPHILS % 47.6 % (36.0-66.0); PLATELET COUNT, AUTOMATED 145 10^3/uL (150-450); RED BLOOD COUNT 3.92 10^6/uL (4.00-5.40); WHITE BLOOD COUNT 6.3 10^3/uL (4.0-10.0)
[2021-06-22 17:02] LABS: ALBUMIN 3.1 GM/DL (3.2-5.2); BILIRUBIN,DIRECT 0.1 MG/DL (0.0-0.2); BILIRUBIN,TOTAL 0.2 MG/DL (0.2-1.0); CREATININE FOR GFR 2.17 MG/DL (0.55-1.30); FREE T4 0.77 NG/DL (0.76-1.46); GLOMERULAR FILTRATION RATE 22.9 (>32); POTASSIUM SERUM 3.8 MEQ/L (3.5-5.1); THYROID STIMULATING HORMONE 2.22 uIU/ML (0.358-3.740); TOTAL PROTEIN 6.4 GM/DL (6.4-8.2)
[2021-06-22 20:31] VITALS: BP 151/72
[2021-06-22] MEDS ORDERED: TRAM50TA2 PO (20:32)
[2021-06-22] MEDS ORDERED: BENZ200C70 PO (20:38)
== END 2021-06-22 21:10 | disposition home or self-care (01) ==
LOC: M ED 15:03
DX: U07.1 COVID-19 (principal); M79.10 Myalgia, unspecified site; E11.9 Type 2 diabetes mellitus without complications; I10 Essential (primary) hypertension; K21.9 Gastro-esophageal reflux disease without esophagitis; H40.9 Unspecified glaucoma; E78.5 Hyperlipidemia, unspecified; E03.9 Hypothyroidism, unspecified; Z90.49 Acquired absence of other specified parts of digestive tract; Z90.710 Acquired absence of both cervix and uterus; Z88.2 Allergy status to sulfonamides; Z91.041 Radiographic dye allergy status; Z79.899 Other long term (current) drug therapy; Z79.890 Hormone replacement therapy; Z79.4 Long term (current) use of insulin

== ENCOUNTER 2021-06-23 09:52 | Outpatient (CLI) | payer MEDICARE, OTHER ==
[~2021-06-23 09:52] MED LIST changes: +BENZ200C70 PO; +TRAM50TA2 PO
[2021-06-23 11:30] VITALS: BP 123/68
[2021-06-23] MEDS ORDERED: ALBUTEROL SULFATE 2.5 MG/0.5 ML INH NEB SOLN INH PRN (11:30)
[2021-06-23] MEDS ORDERED: EPINEPHrine INJ 1 MG/ML 1ML AMP IM PRN (11:30)
[2021-06-23] MEDS ORDERED: ACETAMINOPHEN TAB 650MG DOSE (2X325MG) PO PRN (11:30)
[2021-06-23] MEDS ORDERED: NS 1,000 ML IV SCH (11:30)
[2021-06-23] MEDS ORDERED: methylPREDNISolone 125MG 2ML VIAL IV PRN (11:30)
[2021-06-23] MEDS ORDERED: ALBUTEROL 90 MCG/ACT 8GM HFA INHALER INH PRN (11:30)
[2021-06-23] MEDS ORDERED: diphenhydrAMINE 50MG/ML VIAL (J1200) IV PRN (11:30)
[2021-06-23] MEDS ORDERED: BEBTELOVIMAB 175MG 2ML VIAL (EUA) IV ONE (11:30)
== END 2021-06-23 12:35 ==
LOC: M OPCLI4 09:52 → M 4MAIN 10:00 → M OPCLI4 12:35
DX: U07.1 COVID-19 (principal); Z88.2 Allergy status to sulfonamides; Z91.041 Radiographic dye allergy status

== ENCOUNTER → 2021-07-23 | Outpatient (REF) | payer MEDICARE, OTHER | LOC: M LAB REF 16:53 | PROVIDERS: ATTEND Nurse Practitioner Family | DX: N39.0 Urinary tract infection, site not specified (principal) ==

== ENCOUNTER → 2021-07-30 | Outpatient (CLI) | payer MEDICARE, OTHER | LOC: M LABSMTC 11:15 | PROVIDERS: ATTEND Family Medicine Sports Medicine | DX: Z11.52 Encounter for screening for COVID-19 (principal) ==

== ENCOUNTER → 2021-11-09 | Outpatient (CLI) | payer MEDICARE, OTHER ==
[~2021-11-09] MED LIST changes: +NYST-13 TOP; -NYST10CR TOP
== END ==
LOC: M LABSMTC 09:38
PROVIDERS: ATTEND Anesthesiology
DX: Z01.812 Encounter for preprocedural laboratory examination (principal); Z20.822 Contact with and (suspected) exposure to COVID-19

== ENCOUNTER 2021-11-12 10:23 | Day surgery (SDC) | payer MEDICARE, OTHER ==
[~2021-11-12] VITALS: Ht 154.9 cm; Wt 82.2 kg
[~2021-11-12 10:23] MED LIST changes: +LIDOCAINE 2% 100MG/5ML SDV (FOR ANES.) As Ordered ONE; +NS 1,000 ML IV ONE; +propofoL 200 MG/20 ML VIAL As Ordered ONE
[2021-11-12] MEDS ORDERED: propofoL 200 MG/20 ML VIAL As Ordered ONE (11:44)
[2021-11-12 12:29] VITALS: BP 137/85
== END 2021-11-12 12:40 | disposition home or self-care (01) ==
LOC: M OPP 10:23
PROVIDERS: ATTEND Surgery
DX: K57.30 Diverticulosis of large intestine without perforation or abscess without bleeding (principal); K62.89 Other specified diseases of anus and rectum; K52.9 Noninfective gastroenteritis and colitis, unspecified; K62.5 Hemorrhage of anus and rectum; Z79.1 Long term (current) use of non-steroidal anti-inflammatories (NSAID); Z79.4 Long term (current) use of insulin; Z79.891 Long term (current) use of opiate analgesic; Z79.899 Other long term (current) drug therapy; Z99.89 Dependence on other enabling machines and devices; Z88.2 Allergy status to sulfonamides; Z91.041 Radiographic dye allergy status; E03.9 Hypothyroidism, unspecified; E11.9 Type 2 diabetes mellitus without complications; M79.7 Fibromyalgia; Z90.5 Acquired absence of kidney; Z90.721 Acquired absence of ovaries, unilateral

== ENCOUNTER → 2021-12-03 | Outpatient (CLI) | payer MEDICARE, OTHER ==
[~2021-12-03] MED LIST changes: -LIDOCAINE 2% 100MG/5ML SDV (FOR ANES.) As Ordered ONE; -NS 1,000 ML IV ONE; -propofoL 200 MG/20 ML VIAL As Ordered ONE
== END ==
LOC: M LABSMTC 09:56
PROVIDERS: ATTEND Family Medicine Sports Medicine
DX: Z01.812 Encounter for preprocedural laboratory examination (principal); Z11.52 Encounter for screening for COVID-19

== ENCOUNTER → 2022-02-12 | Outpatient (REF) | payer MEDICARE, OTHER ==
[2022-02-12 17:42] LABS: APPEARANCE, URINE MANUAL CLOUDY (CLEAR); COLOR, URINE MANUAL YELLOW (YELLOW)
[2022-02-12 17:43] LABS: BILIRUBIN, URINE MANUAL NEGATIVE (NEGATIVE); BLOOD URINE MANUAL NEGATIVE (NEGATIVE); GLUCOSE, URINE (UA) MANUAL NEGATIVE (NEGATIVE); KETONE, URINE MANUAL NEGATIVE (NEGATIVE); LEUKOCYTE ESTERASE, URINE MAN POSITIVE (NEGATIVE); NITRITE, URINE MANUAL POSITIVE (NEGATIVE); PROTEIN, URINE MANUAL 3+ mg/dL (NEGATIVE); UROBILINOGEN, URINE MANUAL NORMAL (NORMAL)
[2022-02-12 17:54] LABS: SQUAMOUS EPITHELIAL CELL URINE NONE SEEN /hpf (SMALL AMT); TRANSITIONAL EPI CELLS, URINE SMALL AMOUNT /hpf; WBC, URINE TNTC /hpf (0-3)
[2022-02-12 17:55] LABS: BACTERIA, URINE LARGE AMOUNT; HYALINE CAST, URINE NONE SEEN /lpf (0-1)
== END ==
LOC: M LAB REF 16:43
PROVIDERS: ATTEND Nurse Practitioner Family
DX: N39.0 Urinary tract infection, site not specified (principal); R31.29 Other microscopic hematuria

== ENCOUNTER → 2022-03-02 | Outpatient (CLI) | payer MEDICARE, OTHER | LOC: M WUC 15:47 | PROVIDERS: ATTEND Physician Assistant | DX: M25.551 Pain in right hip (principal) ==

== ENCOUNTER → 2022-03-22 | Outpatient (CLI) | payer MEDICARE, OTHER | LOC: M LABSMTC 09:20 | PROVIDERS: ATTEND Family Medicine Sports Medicine | DX: Z01.818 Encounter for other preprocedural examination (principal); M54.16 Radiculopathy, lumbar region ==

== ENCOUNTER → 2022-07-30 | Outpatient (CLI) | payer MEDICARE, OTHER ==
[~2022-07-30] MED LIST changes: +MONT-5 PO; -OLOP5DRO16 OU; +OLOP5DRO17 OU; -SING10TA32 PO
[2022-07-30 12:50] LABS: APPEARANCE, URINE CLOUDY (CLEAR); BACTERIA, URINE AUTO 1+ (NEGATIVE); BILIRUBIN, URINE AUTO NEGATIVE (NEGATIVE); BLOOD, URINE BLOOD NEGATIVE (NEGATIVE); COLOR, URINE YELLOW (YELLOW); GLUCOSE, URINE (UA) AUTO 1+ mg/dL (NEGATIVE); KETONE, URINE AUTO NEGATIVE (NEGATIVE); LEUKOCYTE ESTERASE, URINE AUTO 3+ (NEGATIVE); MUCUS, URINE SMALL (NEGATIVE); NITRITE, URINE AUTO NEGATIVE (NEGATIVE); PROTEIN, URINE AUTO 2+ mg/dL (NEGATIVE); RBC, URINE AUTO 2 /HPF (0-3); SPECIFIC GRAVITY URINE AUTO 1.017 (1.002-1.035); SQUAMOUS EPITHELIAL CELL UR AU 5 /HPF (0-6); UROBILINOGEN, URINE AUTO 0.2 mg/dL (0.0-2.0); WBC, URINE AUTO TNTC /HPF (0-3)
== END ==
LOC: M WUC 10:31
PROVIDERS: ATTEND Nurse Practitioner Family
DX: N39.0 Urinary tract infection, site not specified (principal)

== ENCOUNTER → 2022-09-14 | Outpatient (REF) | payer MEDICARE, OTHER ==
[~2022-09-14] MED LIST changes: -ROPI1TAB3 PO; +ROPI1TAB73 PO; -ROPI2TAB3 PO; +ROPI2TAB46 PO
[2022-09-14 18:12] LABS: CREATININE,RANDOM URINE 86.2 MG/DL
[2022-09-14 18:15] LABS: TOTAL PROTEIN,RANDOM URINE 171.8 MG/DL (0.0-14.0)
== END ==
LOC: M LAB REF 17:10
PROVIDERS: ATTEND Nurse Practitioner Family
DX: R80.9 Proteinuria, unspecified (principal)

== ENCOUNTER → 2022-12-05 | Outpatient (REF) | payer MEDICARE, OTHER ==
[~2022-12-05] MED LIST changes: +EZET10TA58 PO; -ZETI10TA16 PO
== END ==
LOC: M LAB REF 17:31
PROVIDERS: ATTEND Physician Assistant
DX: R30.0 Dysuria (principal); R31.9 Hematuria, unspecified

== ENCOUNTER → 2023-01-04 | Outpatient (REF) | payer MEDICARE, OTHER ==
[2023-01-04 20:00] LABS: APPEARANCE, URINE HAZY (CLEAR); BACTERIA, URINE AUTO NEGATIVE (NEGATIVE); BILIRUBIN, URINE AUTO NEGATIVE (NEGATIVE); BLOOD, URINE BLOOD NEGATIVE (NEGATIVE); COLOR, URINE YELLOW (YELLOW); GLUCOSE, URINE (UA) AUTO 1+ mg/dL (NEGATIVE); KETONE, URINE AUTO NEGATIVE (NEGATIVE); LEUKOCYTE ESTERASE, URINE AUTO 2+ (NEGATIVE); NITRITE, URINE AUTO NEGATIVE (NEGATIVE); PROTEIN, URINE AUTO 3+ mg/dL (NEGATIVE); RBC, URINE AUTO 1 /HPF (0-3); SPECIFIC GRAVITY URINE AUTO 1.018 (1.002-1.035); SQUAMOUS EPITHELIAL CELL UR AU 1 /HPF (0-6); UROBILINOGEN, URINE AUTO 0.2 mg/dL (0.0-2.0); WBC, URINE AUTO 135 /HPF (0-3)
== END ==
LOC: M LAB REF 16:15
PROVIDERS: ATTEND Nurse Practitioner Family
DX: N39.0 Urinary tract infection, site not specified (principal)

== ENCOUNTER → 2023-05-13 | Outpatient (CLI) | payer MEDICARE, OTHER ==
[~2023-05-13] MED LIST changes: -OLME20TA2 PO; +OLME20TA50 PO
== END ==
LOC: M SOG 08:11
PROVIDERS: ATTEND Orthopaedic Surgery
DX: M54.50 Low back pain, unspecified (principal)

== ENCOUNTER → 2023-06-16 | Outpatient (CLI) | payer MEDICARE, OTHER ==
[~2023-06-16] MED LIST changes: +AMOX875T2 PO; +ONDA4TAB6 PO
== END ==
LOC: M PAIN 13:00
PROVIDERS: ATTEND Nurse Practitioner Family
DX: M70.61 Trochanteric bursitis, right hip (principal); M70.62 Trochanteric bursitis, left hip; M51.16 Intervertebral disc disorders with radiculopathy, lumbar region; G89.29 Other chronic pain; E11.22 Type 2 diabetes mellitus with diabetic chronic kidney disease; I12.9 Hypertensive chronic kidney disease with stage 1 through stage 4 chronic kidney disease, or unspecified chronic kidney disease; H40.9 Unspecified glaucoma; G47.30 Sleep apnea, unspecified; N18.4 Chronic kidney disease, stage 4 (severe); Z79.4 Long term (current) use of insulin; Z79.890 Hormone replacement therapy; Z79.899 Other long term (current) drug therapy; Z88.2 Allergy status to sulfonamides; Z88.5 Allergy status to narcotic agent; Z88.8 Allergy status to other drugs, medicaments and biological substances; Z91.018 Allergy to other foods

== ENCOUNTER 2023-06-21 04:32 | Emergency (ER) | payer MEDICARE, OTHER ==
[~2023-06-21] VITALS: Ht 152.4 cm; Wt 92.0 kg
[~2023-06-21 04:32] MED LIST changes: -AMOX875T2 PO; -ONDA4TAB6 PO
[2023-06-21] MEDS: KETOROLAC 60MG 2ML VIAL IM ONE (05:20)
[2023-06-21 08:42] VITALS: BP 98/54; TEMP 98.4; O2SAT 94
== END 2023-06-21 08:44 | disposition home or self-care (01) ==
LOC: M ED 04:32 → EDBD 04:32 → M ED 08:44
DX: M25.462 Effusion, left knee (principal); M16.12 Unilateral primary osteoarthritis, left hip; Z88.2 Allergy status to sulfonamides; Z91.041 Radiographic dye allergy status; Z79.1 Long term (current) use of non-steroidal anti-inflammatories (NSAID); Z79.84 Long term (current) use of oral hypoglycemic drugs; Z79.4 Long term (current) use of insulin; Z79.810 Long term (current) use of selective estrogen receptor modulators (SERMs); Z79.899 Other long term (current) drug therapy
CPT/HCPCS: 73502; 73564; 93971; 96372; 99284; J1885

== ENCOUNTER → 2023-06-30 | Outpatient (CLI) | payer MEDICARE, OTHER | LOC: M PLAIMG 13:56 | PROVIDERS: ATTEND Nurse Practitioner Family | DX: M51.16 Intervertebral disc disorders with radiculopathy, lumbar region (principal) ==

== ENCOUNTER 2023-07-04 04:52 | Emergency (ER) | payer MEDICARE, OTHER ==
[~2023-07-04] VITALS: Ht 154.9 cm; Wt 87.3 kg
[2023-07-04 05:28] LABS: BASO # 0.1 10^3/uL (0.0-0.2); BASO % 0.6 % (0.0-1.0); EOS # 0.2 10^3/uL (0.0-0.5); EOS % 2.3 % (0.0-3.0); HEMATOCRIT 35.8 % (36.0-47.0); HEMOGLOBIN 11.8 g/dl (12.0-15.5); LYMPH # 1.7 10^3/uL (1.5-5.0); LYMPH % 20.5 % (24.0-44.0); MEAN CORPUSCULAR HEMOGLOBIN 28.2 pg (27.0-33.0); MEAN CORPUSCULAR VOLUME 85.6 fl (80.0-96.0); MONO # 0.8 10^3/uL (0.0-0.8); MONO % 9.4 % (2.0-8.0); NEUTROPHILS # 5.5 10^3/uL (1.5-8.5); PLATELET COUNT, AUTOMATED 232 10^3/uL (150-450); RED BLOOD COUNT 4.18 10^6/uL (4.00-5.40); WHITE BLOOD COUNT 8.2 10^3/uL (4.0-10.0)
[2023-07-04 05:59] LABS: ALKALINE PHOSPHATASE 91 U/L (46-116); ALT/SGPT 14 U/L (7.0-40); AST/SGOT 55 U/L (<34); BILIRUBIN,DIRECT < 0.1 MG/DL (<0.4); BILIRUBIN,TOTAL 0.3 MG/DL (0.3-1.2); BLOOD UREA NITROGEN 25 MG/DL (9-23); CALCIUM LEVEL 8.8 MG/DL (8.3-10.6); CARBON DIOXIDE LEVEL 26 MMOL/L (20-31); CHLORIDE LEVEL 103 MMOL/L (98-107); CREATININE FOR GFR 1.76 MG/DL (0.55-1.30); GLOMERULAR FILTRATION RATE 29.1 (>32); GLUCOSE, FASTING 152 MG/DL (74-106); LIPASE 26 U/L (12-53); POTASSIUM SERUM 5.8 MMOL/L (3.5-5.1); SODIUM LEVEL 136 MMOL/L (136-145); TOTAL PROTEIN 6.6 G/DL (5.7-8.2)
[2023-07-04 07:22] LABS: CALCIUM LEVEL 9.2 MG/DL (8.3-10.6); CREATININE FOR GFR 1.9 MG/DL (0.55-1.30); GLOMERULAR FILTRATION RATE 26.6 (>32); POTASSIUM SERUM 4.4 MMOL/L (3.5-5.1)
[2023-07-04] MEDS: NS 500 ML IV ONE (08:02)
[2023-07-04] MEDS: METOCLOPRAMIDE INJ 10MG/2ML VIAL IV ONE (08:02)
[2023-07-04] MEDS ORDERED: ONDA4TAB6 PO (11:26)
[2023-07-04] MEDS ORDERED: AMOX875T2 PO (11:31)
[2023-07-04 11:45] VITALS: BP 172/81; O2SAT 96
[2023-07-04 11:50] VITALS: TEMP 97.6
== END 2023-07-04 12:03 | disposition home or self-care (01) ==
LOC: M ED 04:52
DX: K57.92 Diverticulitis of intestine, part unspecified, without perforation or abscess without bleeding (principal); E11.9 Type 2 diabetes mellitus without complications; I12.9 Hypertensive chronic kidney disease with stage 1 through stage 4 chronic kidney disease, or unspecified chronic kidney disease; Z91.041 Radiographic dye allergy status; Z88.2 Allergy status to sulfonamides; Z79.1 Long term (current) use of non-steroidal anti-inflammatories (NSAID); Z79.2 Long term (current) use of antibiotics; Z79.4 Long term (current) use of insulin; Z79.84 Long term (current) use of oral hypoglycemic drugs; Z79.810 Long term (current) use of selective estrogen receptor modulators (SERMs); Z79.899 Other long term (current) drug therapy
CPT/HCPCS: 74176; 80048; 80076; 83690; 85025; 87507; 96361; 96374; 99284; J2765

== ENCOUNTER → 2023-07-20 | Outpatient (REF) | payer MEDICARE, OTHER ==
[~2023-07-20] MED LIST changes: +AMOX875T2 PO; +ONDA-282 PO
[2023-07-20 19:26] LABS: PERCENT SATURATION 19.6 % (13.2-45.0)
[2023-07-20 19:27] LABS: FERRITIN 134.5 NG/ML (7.3-270.7)
== END ==
LOC: M LAB REF 16:53
PROVIDERS: ATTEND Nurse Practitioner Family
DX: D50.9 Iron deficiency anemia, unspecified (principal)

== ENCOUNTER → 2023-07-21 | Outpatient (CLI) | payer MEDICARE, OTHER | LOC: M RAD 18:00 | PROVIDERS: ATTEND Student in an Organized Health Care Education/Training Program | DX: S20.212A Contusion of left front wall of thorax, initial encounter (principal); W18.30XA Fall on same level, unspecified, initial encounter; Y92.009 Unspecified place in unspecified non-institutional (private) residence as the place of occurrence of the external cause ==

== ENCOUNTER → 2023-08-26 | Outpatient (CLI) | payer MEDICARE, OTHER | LOC: M PAIN 15:30 | PROVIDERS: ATTEND Nurse Practitioner Family | DX: M51.16 Intervertebral disc disorders with radiculopathy, lumbar region (principal); G89.29 Other chronic pain; E11.22 Type 2 diabetes mellitus with diabetic chronic kidney disease; I12.9 Hypertensive chronic kidney disease with stage 1 through stage 4 chronic kidney disease, or unspecified chronic kidney disease; M19.90 Unspecified osteoarthritis, unspecified site; H40.9 Unspecified glaucoma; G25.81 Restless legs syndrome; G47.30 Sleep apnea, unspecified; M79.7 Fibromyalgia; N18.4 Chronic kidney disease, stage 4 (severe); F03.90 Unspecified dementia, unspecified severity, without behavioral disturbance, psychotic disturbance, mood disturbance, and anxiety; Z79.82 Long term (current) use of aspirin; Z79.899 Other long term (current) drug therapy; Z88.2 Allergy status to sulfonamides; Z88.6 Allergy status to analgesic agent; Z88.8 Allergy status to other drugs, medicaments and biological substances; Z91.018 Allergy to other foods ==

== ENCOUNTER 2023-11-15 22:35 | Emergency (ER) | payer MEDICARE, OTHER ==
[~2023-11-15] VITALS: Ht 157.5 cm; Wt 86.4 kg
[~2023-11-15 22:35] MED LIST changes: +GABA-1172 PO; -GABA-282 PO
[2023-11-16] MEDS: ONDANSETRON 4MG 2ML VIAL IV ONE (00:13)
[2023-11-16 00:25] LABS: CK-MB VALUE MASS < 1.0 NG/ML (<3.6); LIPASE 39 U/L (12-53)
[2023-11-16 00:26] LABS: AMYLASE 99 U/L (30-118)
[2023-11-16 00:27] LABS: ALBUMIN 3.4 G/DL (3.2-5.2); ALKALINE PHOSPHATASE 90 U/L (46-116); ALT/SGPT 15 U/L (7.0-40); AST/SGOT 14 U/L (<34); BILIRUBIN,DIRECT 0.1 MG/DL (<0.4); BILIRUBIN,TOTAL 0.5 MG/DL (0.3-1.2); BLOOD UREA NITROGEN 41 MG/DL (9-23); CALCIUM LEVEL 9.1 MG/DL (8.3-10.6); CARBON DIOXIDE LEVEL 27 MMOL/L (20-31); CHLORIDE LEVEL 104 MMOL/L (98-107); CPK CREATINE PHOSPHOKINASE 47 U/L (34-145); GLOMERULAR FILTRATION RATE 26.6 (>32); GLUCOSE, FASTING 196 MG/DL (74-106); MB/CK RELATIVE INDEX 2.12 (< OR =4); POTASSIUM SERUM 4.8 MMOL/L (3.5-5.1); SODIUM LEVEL 136 MMOL/L (136-145); TOTAL PROTEIN 6.8 G/DL (5.7-8.2)
[2023-11-16 01:17] LABS: BASO % 0.4 % (0.0-1.0); EOS % 0.1 % (0.0-3.0); HEMATOCRIT 37.2 % (36.0-47.0); LYMPH # 1.4 10^3/uL (1.5-5.0); LYMPH % 16.6 % (24.0-44.0); MEAN CORPUSCULAR HEMOGLOBIN 28.4 pg (27.0-33.0); MEAN CORPUSCULAR HGB CONC 32.3 g/dl (32.0-36.5); MEAN CORPUSCULAR VOLUME 87.9 fl (80.0-96.0); MONO # 0.7 10^3/uL (0.0-0.8); MONO % 7.9 % (2.0-8.0); NEUTROPHILS # 6.3 10^3/uL (1.5-8.5); NEUTROPHILS % 73.7 % (36.0-66.0); PLATELET COUNT, AUTOMATED 147 10^3/uL (150-450); RED BLOOD COUNT 4.23 10^6/uL (4.00-5.40); WHITE BLOOD COUNT 8.6 10^3/uL (4.0-10.0)
[2023-11-16] MEDS: NS 500 ML IV ONE (01:30)
[2023-11-16] MEDS ORDERED: ONDA-282 PO (03:08)
[2023-11-16 03:28] VITALS: BP 127/78; TEMP 97; O2SAT 93
[2023-11-23] MEDS ORDERED: AMLO1TAB24 PO (17:43)
== END 2023-11-16 03:45 | disposition home or self-care (01) ==
LOC: M ED 22:35
DX: A09 Infectious gastroenteritis and colitis, unspecified (principal); E86.0 Dehydration; I44.4 Left anterior fascicular block; E11.9 Type 2 diabetes mellitus without complications; E03.9 Hypothyroidism, unspecified; I10 Essential (primary) hypertension; E78.5 Hyperlipidemia, unspecified; Z88.2 Allergy status to sulfonamides; Z91.041 Radiographic dye allergy status; Z79.1 Long term (current) use of non-steroidal anti-inflammatories (NSAID); Z79.2 Long term (current) use of antibiotics; Z79.84 Long term (current) use of oral hypoglycemic drugs; Z79.4 Long term (current) use of insulin; Z79.899 Other long term (current) drug therapy
CPT/HCPCS: 74176; 80047; 80048; 80076; 82150; 82550; 82553; 83690; 84484; 85025; 86850; 86870; 86900; 86901; 87040; 87077; 87486; 87507; 87581; 87633; 87798; 93005; 93041; 96361; 96374; 99285; J2405

== ENCOUNTER → 2023-11-16 | Outpatient (REF) | payer MEDICARE ==
[~2023-11-16] MED LIST changes: +ALLO10TA PO; +ASPI81TAEC PO; +DIPH1TAB80 PO; +DONE10TA90 PO; +EPIPENSY SC; +FAMO10TA50 PO; +JANU100T PO; +LEVO75TA4 PO; +LIVA4TAB PO; +MULT-90 PO; +VITA100093 PO
== END ==
LOC: M LAB REF 18:48
PROVIDERS: ATTEND Emergency Medicine
DX: R19.7 Diarrhea, unspecified (principal)

== ENCOUNTER 2023-11-20 11:08 | Inpatient (IN) | payer MEDICARE ==
[~2023-11-20] VITALS: Ht 152.4 cm; Wt 82.2 kg
[2023-11-20] MEDS: FAMOTIDINE 20 MG TAB PO SCH (09:00)
[2023-11-20] MEDS: allopurinoL 100 MG TAB PO SCH (09:00)
[2023-11-20] MEDS: ASPIRIN 300 MG SUPP PR SCH (09:00)
[2023-11-20] MEDS: LIDOCAINE 5% (LIDODERM) PATCH TD SCH (09:00)
[2023-11-20] MEDS: MONTELUKAST 10 MG TAB PO SCH (09:00)
[2023-11-20] MEDS: CETIRIZINE (ZyrTEC) 10 MG TAB PO SCH (09:00)
[~2023-11-20 11:08] MED LIST changes: -ALLO10TA PO; -ASPI81TAEC PO; -DIPH1TAB80 PO; -DONE10TA90 PO; -EPIPENSY SC; -FAMO10TA50 PO; -JANU100T PO; -LEVO75TA4 PO; -LIVA4TAB PO; -MULT-90 PO; -VITA100093 PO
[2023-11-20 11:59] LABS: BASO % 0.3 % (0.0-1.0); EOS % 0.3 % (0.0-3.0); HEMATOCRIT 32.8 % (36.0-47.0); HEMOGLOBIN 10.6 g/dl (12.0-15.5); LYMPH # 1.3 10^3/uL (1.5-5.0); LYMPH % 17.9 % (24.0-44.0); MEAN CORPUSCULAR HGB CONC 32.3 g/dl (32.0-36.5); MEAN CORPUSCULAR VOLUME 89.9 fl (80.0-96.0); MONO # 0.7 10^3/uL (0.0-0.8); MONO % 9.6 % (2.0-8.0); NEUTROPHILS # 5.2 10^3/uL (1.5-8.5); NEUTROPHILS % 71.6 % (36.0-66.0); PLATELET COUNT, AUTOMATED 132 10^3/uL (150-450); RED BLOOD COUNT 3.65 10^6/uL (4.00-5.40); WHITE BLOOD COUNT 7.3 10^3/uL (4.0-10.0)
[2023-11-20 12:19] LABS: CALCIUM LEVEL 8.4 MG/DL (8.3-10.6); CREATININE FOR GFR 2.13 MG/DL (0.55-1.30); GLOMERULAR FILTRATION RATE 23.3 (>32); POTASSIUM SERUM 4.2 MMOL/L (3.5-5.1)
[2023-11-20 12:21] LABS: THYROID STIMULATING HORMONE 1.377 uIU/ML (0.55-4.78)
[2023-11-20 12:22] LABS: FREE T4 1.28 NG/DL (0.89-1.76)
[2023-11-20] MEDS ORDERED: LEVO75TA4 PO (12:53)
[2023-11-20] MEDS ORDERED: LIVA4TAB PO (12:53)
[2023-11-20] MEDS ORDERED: EPIPENSY SC (12:53)
[2023-11-20] MEDS ORDERED: JANU100T PO (12:53)
[2023-11-20] MEDS ORDERED: FAMO10TA50 PO (12:53)
[2023-11-20] MEDS ORDERED: DONE10TA90 PO (12:53)
[2023-11-20] MEDS ORDERED: MULT-90 PO (12:53)
[2023-11-20] MEDS ORDERED: DIPH1TAB80 PO (12:53)
[2023-11-20] MEDS ORDERED: ALLO10TA PO (12:53)
[2023-11-20] MEDS: GABAPENTIN 300 MG CAP PO SCH (13:00)
[2023-11-20] MEDS ORDERED: VITA100093 PO (13:08)
[2023-11-20] MEDS ORDERED: ACET300T47 PO (13:08)
[2023-11-20] MEDS ORDERED: ONDA-282 PO (13:09)
[2023-11-20] MEDS ORDERED: HOME MED LIST COMPLETE! XX SCH (13:15)
[2023-11-20 13:35] LABS: AMPHETAMINES LEVEL URINE NEGATIVE (NEGATIVE); BARBITURATES URINE NEGATIVE (NEGATIVE); BENZODIAZEPINES URINE NEGATIVE (NEGATIVE); CANNABINOIDS URINE NEGATIVE (NEGATIVE); COCAINE METABOLITE URINE NEGATIVE (NEGATIVE); METHADONE URINE NEGATIVE (NEGATIVE); OPIATES URINE NEGATIVE (NEGATIVE); PHENCYCLIDINE URINE NEGATIVE (NEGATIVE)
[2023-11-20] MEDS ORDERED: ONDANSETRON 4MG ORAL DISINTEGRATING TAB PO PRN (14:15)
[2023-11-20] MEDS ORDERED: NYSTATIN CREAM 15GM TOP PRN (14:15)
[2023-11-20] MEDS ORDERED: DEXTROSE 50% 50ML SYRINGE IV PRN (15:05)
[2023-11-20] MEDS ORDERED: GLUCAGON INJ 1MG VIAL SC PRN (15:05)
[2023-11-20] MEDS ORDERED: GLUCOSE 4 GM CHEW PO PRN (15:05)
[2023-11-20 15:19] LABS: BASO % 0.4 % (0.0-1.0); EOS % 0.3 % (0.0-3.0); HEMATOCRIT 36.2 % (36.0-47.0); HEMOGLOBIN 11.7 g/dl (12.0-15.5); LYMPH # 1.8 10^3/uL (1.5-5.0); LYMPH % 19.2 % (24.0-44.0); MEAN CORPUSCULAR HGB CONC 32.3 g/dl (32.0-36.5); MEAN CORPUSCULAR VOLUME 89.6 fl (80.0-96.0); MONO % 10.9 % (2.0-8.0); NEUTROPHILS # 6.5 10^3/uL (1.5-8.5); NEUTROPHILS % 68.9 % (36.0-66.0); PLATELET COUNT, AUTOMATED 161 10^3/uL (150-450); RED BLOOD COUNT 4.04 10^6/uL (4.00-5.40); WHITE BLOOD COUNT 9.5 10^3/uL (4.0-10.0)
[2023-11-20 15:32] LABS: INR 1.22; PARTIAL THROMBOPLASTIN TIME 26.1 SECONDS (24.8-34.2)
[2023-11-20 15:50] LABS: HEMOGLOBIN A1c 7.2 % (4.0-6.0)
[2023-11-20 15:54] LABS: C REACTIVE PROTEIN QUANTITATIV < 0.40 MG/DL (<1.0)
[2023-11-20 15:56] LABS: CPK CREATINE PHOSPHOKINASE 42 U/L (34-145)
[2023-11-20 16:00] LABS: ALBUMIN 3.3 G/DL (3.2-5.2); ALKALINE PHOSPHATASE 79 U/L (46-116); ALT/SGPT 13 U/L (7.0-40); AST/SGOT 14 U/L (<34); BILIRUBIN,DIRECT 0.1 MG/DL (<0.4); BILIRUBIN,TOTAL 0.4 MG/DL (0.3-1.2); BLOOD UREA NITROGEN 43 MG/DL (9-23); CARBON DIOXIDE LEVEL 24 MMOL/L (20-31); CHLORIDE LEVEL 112 MMOL/L (98-107); CHOLESTEROL LEVEL 132 MG/DL (<200); CK-MB VALUE MASS < 1.0 NG/ML (<3.6); CREATININE FOR GFR 2.07 MG/DL (0.55-1.30); GLOMERULAR FILTRATION RATE 24.1 (>32); GLUCOSE, FASTING 68 MG/DL (74-106); HDL CHOLESTEROL 41.2 MG/DL (>40); MB/CK RELATIVE INDEX 2.38 (< OR =4); NON-HDL-C 90.8 MG/DL; POTASSIUM SERUM 4.3 MMOL/L (3.5-5.1); SODIUM LEVEL 141 MMOL/L (136-145); TOTAL PROTEIN 6.4 G/DL (5.7-8.2); TRIGLYCERIDES LEVEL 129 MG/DL (<150)
[2023-11-20 16:45] VITALS: BP 157/86; TEMP 97.7; O2SAT 97
[2023-11-20] MEDS: INSULIN LISPRO (NovoLOG) PER UNIT SC SCH ×2 (17:30→20:23)
[2023-11-20 19:12] VITALS: BP 143/79; TEMP 97.8; O2SAT 96
[2023-11-20] MEDS: VITAMIN D 1,000 INTERNATIONAL UNITS TABLET PO SCH (20:21)
[2023-11-20] MEDS: EZETIMIBE 10MG TABLET (ZETIA) PO SCH (20:22)
[2023-11-20] MEDS: rOPINIRole 2MG TAB PO SCH (20:22)
[2023-11-20] MEDS: AMITRIPTYLINE 50 MG TAB PO SCH (20:22)
[2023-11-20] MEDS: ATORVASTATIN 20 MG TAB PO SCH (20:23)
[2023-11-20] MEDS ORDERED: CARVedilol 12.5 MG TAB PO SCH (21:00)
[2023-11-21] VITALS (8 sets, daily range): BP systolic 131–150; BP diastolic 65–81; TEMP 97.4–98.2; O2SAT 94–97
[2023-11-21] MEDS: LEVOTHYROXINE 75MCG TABLET (0.075MG) PO SCH (05:34)
[2023-11-21 10:08] LABS: CALCIUM LEVEL 9.6 MG/DL (8.3-10.6); CREATININE FOR GFR 2.12 MG/DL (0.55-1.30); GLOMERULAR FILTRATION RATE 23.5 (>32); POTASSIUM SERUM 4.4 MMOL/L (3.5-5.1)
[2023-11-21] MEDS: ASPIRIN 81MG ENTERIC TABLET PO SCH (10:52)
[2023-11-21] MEDS ORDERED: PILL CUTTER 1 EACH XX ONE (10:53)
[2023-11-21] MEDS ORDERED: ASPI81TAEC PO (11:15)
[2023-11-21] MEDS: CARVedilol 12.5 MG TAB PO SCH (13:14)
[2023-11-21] MEDS: PREVNAR-20 VACCINE 0.5ML SYRINGE IM.IMMUN ONE (20:57)
[2023-11-21] MEDS: ATORVASTATIN 20 MG TAB PO SCH (20:58)
[2023-11-22] VITALS (7 sets, daily range): BP systolic 146–158; BP diastolic 67–73; TEMP 97.7–98.2; O2SAT 93–97
[2023-11-23] MEDS ORDERED: AMLO1TAB24 PO (17:43)
== END 2023-11-22 13:10 | disposition home or self-care (01) | DRG 316 ==
LOC: M ED 11:08 → M ED INP 14:14 → M PCU 16:51
PROVIDERS: ADMIT Hospitalist; ATTEND Internal Medicine
PROC: B246ZZZ Ultrasonography of Right and Left Heart (ICD-10-PCS; principal; 2023-11-21)
DX: I95.9 Hypotension, unspecified (principal); R19.7 Diarrhea, unspecified; E03.9 Hypothyroidism, unspecified; E11.40 Type 2 diabetes mellitus with diabetic neuropathy, unspecified; E78.5 Hyperlipidemia, unspecified; J45.909 Unspecified asthma, uncomplicated; K21.9 Gastro-esophageal reflux disease without esophagitis; E66.9 Obesity, unspecified; I10 Essential (primary) hypertension; F32.A Depression, unspecified; F41.9 Anxiety disorder, unspecified; J44.9 Chronic obstructive pulmonary disease, unspecified; G25.81 Restless legs syndrome; E55.9 Vitamin D deficiency, unspecified; I16.0 Hypertensive urgency; I44.1 Atrioventricular block, second degree; R55 Syncope and collapse; I49.49 Other premature depolarization; Z66 Do not resuscitate; Z79.4 Long term (current) use of insulin; Z85.528 Personal history of other malignant neoplasm of kidney; Z90.5 Acquired absence of kidney; Z79.890 Hormone replacement therapy; Z79.899 Other long term (current) drug therapy; Z91.041 Radiographic dye allergy status; Z88.2 Allergy status to sulfonamides

== ENCOUNTER → 2023-11-22 | Outpatient (CLI) | payer MEDICARE, OTHER ==
[~2023-11-22] MED LIST changes: +ALLO10TA PO; +AMLO1TAB24 PO; +ASPI81TAEC PO; +DIPH1TAB80 PO; +DONE10TA90 PO; +EPIPENSY SC; +FAMO10TA50 PO; +JANU100T PO; +LEVO75TA4 PO; +LIVA4TAB PO; +MULT-90 PO; +NYST1POW3 TOP; -NYST1POW9 TOP; +VITA100093 PO
== END ==
LOC: M EKG 13:23
PROVIDERS: ATTEND Internal Medicine
DX: R00.0 Tachycardia, unspecified (principal)

== ENCOUNTER 2024-01-23 11:26 | Observation (INO) | payer MEDICARE, OTHER ==
[~2024-01-23] VITALS: Ht 157.5 cm; Wt 86.2 kg
[2024-01-23 12:28] LABS: BASO # 0.1 10^3/uL (0.0-0.2); BASO % 0.6 % (0.0-1.0); EOS # 0.2 10^3/uL (0.0-0.5); EOS % 1.9 % (0.0-3.0); HEMATOCRIT 35.5 % (36.0-47.0); HEMOGLOBIN 11.2 g/dl (12.0-15.5); LYMPH # 1.8 10^3/uL (1.5-5.0); LYMPH % 23.1 % (24.0-44.0); MEAN CORPUSCULAR HEMOGLOBIN 29.2 pg (27.0-33.0); MEAN CORPUSCULAR HGB CONC 31.5 g/dl (32.0-36.5); MEAN CORPUSCULAR VOLUME 92.4 fl (80.0-96.0); MONO # 0.6 10^3/uL (0.0-0.8); MONO % 8.3 % (2.0-8.0); NEUTROPHILS # 5.1 10^3/uL (1.5-8.5); NEUTROPHILS % 65.6 % (36.0-66.0); PLATELET COUNT, AUTOMATED 146 10^3/uL (150-450); RED BLOOD COUNT 3.84 10^6/uL (4.00-5.40); WHITE BLOOD COUNT 7.8 10^3/uL (4.0-10.0)
[2024-01-23 12:59] LABS: CK-MB VALUE MASS < 1.0 NG/ML (<3.6); INR 1.03; PARTIAL THROMBOPLASTIN TIME 31.3 SECONDS (24.8-34.2); PROTHROMBIN TIME 13.8 SECONDS (12.5-14.5)
[2024-01-23 13:01] LABS: BLOOD UREA NITROGEN 41 MG/DL (9-23); CALCIUM LEVEL 9.3 MG/DL (8.3-10.6); CARBON DIOXIDE LEVEL 32 MMOL/L (20-31); CHLORIDE LEVEL 104 MMOL/L (98-107); CPK CREATINE PHOSPHOKINASE 46 U/L (34-145); CREATININE FOR GFR 2.47 MG/DL (0.55-1.30); GLOMERULAR FILTRATION RATE 19.6 (>32); GLUCOSE, FASTING 226 MG/DL (74-106); MB/CK RELATIVE INDEX 2.17 (< OR =4); POTASSIUM SERUM 4.4 MMOL/L (3.5-5.1); SODIUM LEVEL 142 MMOL/L (136-145)
[2024-01-23] MEDS ORDERED: NS (Normal Saline) 0.9% 1,000 ML IV SCH (13:15)
[2024-01-23] MEDS ORDERED: GLUCAGON INJ 1MG VIAL SC PRN (13:15)
[2024-01-23] MEDS ORDERED: DEXTROSE 50% 50ML SYRINGE IV PRN (13:15)
[2024-01-23] MEDS ORDERED: GLUCOSE 4 GM CHEW PO PRN (13:15)
[2024-01-23] MEDS: NS (Normal Saline) 0.9% 1,000 ML IV SCH (13:45)
[2024-01-23] MEDS ORDERED: ALLO300T2 PO (14:47)
[2024-01-23] MEDS ORDERED: MEMA1TAB3 PO (15:19)
[2024-01-23] MEDS ORDERED: FURO20TA2 PO (15:19)
[2024-01-23] MEDS ORDERED: FAMO40TA3 PO (15:20)
[2024-01-23] MEDS ORDERED: POTA1TAB23 PO (15:23)
[2024-01-23] MEDS ORDERED: HOME MED LIST COMPLETE! XX SCH (15:25)
[2024-01-23] MEDS ORDERED: ONDANSETRON 4MG ORAL DISINTEGRATING TAB PO PRN (15:25)
[2024-01-23] MEDS ORDERED: GLIP5TAB17 PO (15:40)
[2024-01-23] MEDS: INSULIN LISPRO (NovoLOG) PER UNIT SC SCH ×2 (19:21→21:23)
[2024-01-23] MEDS: GABAPENTIN 300 MG CAP PO SCH (19:27)
[2024-01-23 20:20] LABS: APPEARANCE, URINE HAZY (CLEAR); BACTERIA, URINE AUTO NEGATIVE (NEGATIVE); BILIRUBIN, URINE AUTO NEGATIVE (NEGATIVE); BLOOD, URINE BLOOD NEGATIVE (NEGATIVE); COLOR, URINE STRAW (YELLOW); GLUCOSE, URINE (UA) AUTO 1+ mg/dL (NEGATIVE); KETONE, URINE AUTO NEGATIVE (NEGATIVE); LEUKOCYTE ESTERASE, URINE AUTO 1+ (NEGATIVE); NITRITE, URINE AUTO NEGATIVE (NEGATIVE); PROTEIN, URINE AUTO 2+ mg/dL (NEGATIVE); RBC, URINE AUTO 2 /HPF (0-3); SPECIFIC GRAVITY URINE AUTO 1.011 (1.002-1.035); SQUAMOUS EPITHELIAL CELL UR AU 0 /HPF (0-6); UROBILINOGEN, URINE AUTO 0.2 mg/dL (0.0-2.0); WBC, URINE AUTO 81 /HPF (0-3)
[2024-01-23 20:43] LABS: CREATININE,RANDOM URINE 45.8 MG/DL
[2024-01-23] MEDS: CARVedilol 12.5 MG TAB PO SCH (21:18)
[2024-01-23] MEDS: VITAMIN D 1,000 INTERNATIONAL UNITS TABLET PO SCH (21:19)
[2024-01-23] MEDS: EZETIMIBE 10MG TABLET (ZETIA) PO SCH (21:19)
[2024-01-23] MEDS: CETIRIZINE (ZyrTEC) 10 MG TAB PO SCH (21:19)
[2024-01-23] MEDS: AMITRIPTYLINE 50 MG TAB PO SCH (21:20)
[2024-01-23] MEDS: rOPINIRole 2MG TAB PO SCH (21:20)
[2024-01-23] MEDS: MEMANTINE 5MG TABLET (NAMENDA) PO SCH (21:21)
[2024-01-23] MEDS: LATANOPROST 0.005% OPHTH SOLN 2.5 ML OU SCH (21:23)
[2024-01-24 06:00] VITALS: TEMP 97.2
[2024-01-24] MEDS: HEPARIN SOD (PORCINE) 5000UNITS/ML 1ML VIAL/SYRINGE SQ SCH (06:10)
[2024-01-24] MEDS: LEVOTHYROXINE 75MCG TABLET (0.075MG) PO SCH (06:11)
[2024-01-24 07:26] LABS: BASO % 0.4 % (0.0-1.0); EOS # 0.2 10^3/uL (0.0-0.5); EOS % 1.7 % (0.0-3.0); HEMATOCRIT 34.4 % (36.0-47.0); HEMOGLOBIN 10.9 g/dl (12.0-15.5); LYMPH # 1.7 10^3/uL (1.5-5.0); LYMPH % 19.4 % (24.0-44.0); MEAN CORPUSCULAR HEMOGLOBIN 29.2 pg (27.0-33.0); MEAN CORPUSCULAR HGB CONC 31.7 g/dl (32.0-36.5); MEAN CORPUSCULAR VOLUME 92.2 fl (80.0-96.0); MONO # 0.9 10^3/uL (0.0-0.8); MONO % 9.7 % (2.0-8.0); NEUTROPHILS # 6.2 10^3/uL (1.5-8.5); NEUTROPHILS % 68.5 % (36.0-66.0); PLATELET COUNT, AUTOMATED 139 10^3/uL (150-450); RED BLOOD COUNT 3.73 10^6/uL (4.00-5.40)
[2024-01-24 08:00] LABS: CALCIUM LEVEL 8.9 MG/DL (8.3-10.6); CREATININE FOR GFR 2.53 MG/DL (0.55-1.30); GLOMERULAR FILTRATION RATE 19.1 (>32); MAGNESIUM LEVEL 2.2 MG/DL (1.8-2.4); POTASSIUM SERUM 4.8 MMOL/L (3.5-5.1)
[2024-01-24] MEDS: FAMOTIDINE 20 MG TAB PO SCH (08:47)
[2024-01-24] MEDS: allopurinoL 300 MG TAB PO SCH (08:47)
[2024-01-24] MEDS: MONTELUKAST 10 MG TAB PO SCH (08:47)
[2024-01-24] MEDS: ATORVASTATIN 20 MG TAB PO SCH (08:47)
[2024-01-24] MEDS: LACTOBACILLUS ACIDOPHILUS CAP (BACID) PO SCH (08:47)
[2024-01-24 08:48] VITALS: BP 125/69
[2024-01-24] MEDS: DONEPEZIL 5 MG TAB PO SCH (08:56)
[2024-01-24 11:00] VITALS: BP 126/67; O2SAT 98
[2024-01-24] MEDS: ACETAMINOPHEN 325 MG TAB PO PRN (11:48)
== END 2024-01-24 12:30 | disposition home or self-care (01) ==
LOC: M ED 11:26 → M ED INP 11:27
PROVIDERS: ADMIT Internal Medicine; ATTEND Internal Medicine
DX: R51.9 Headache, unspecified (principal); N17.9 Acute kidney failure, unspecified; N18.30 Chronic kidney disease, stage 3 unspecified; H53.8 Other visual disturbances; G31.1 Senile degeneration of brain, not elsewhere classified; I67.82 Cerebral ischemia; G62.9 Polyneuropathy, unspecified; R94.4 Abnormal results of kidney function studies; N28.1 Cyst of kidney, acquired; Z85.528 Personal history of other malignant neoplasm of kidney; Z90.5 Acquired absence of kidney; R23.3 Spontaneous ecchymoses; R29.6 Repeated falls; Z99.89 Dependence on other enabling machines and devices; F03.A0 Unspecified dementia, mild, without behavioral disturbance, psychotic disturbance, mood disturbance, and anxiety; I12.9 Hypertensive chronic kidney disease with stage 1 through stage 4 chronic kidney disease, or unspecified chronic kidney disease; E11.22 Type 2 diabetes mellitus with diabetic chronic kidney disease; E78.5 Hyperlipidemia, unspecified; E03.9 Hypothyroidism, unspecified; J45.909 Unspecified asthma, uncomplicated; G25.81 Restless legs syndrome; M10.9 Gout, unspecified; K21.9 Gastro-esophageal reflux disease without esophagitis; Z88.2 Allergy status to sulfonamides; Z91.041 Radiographic dye allergy status; Z91.040 Latex allergy status; K90.41 Non-celiac gluten sensitivity; Z79.899 Other long term (current) drug therapy; Z79.4 Long term (current) use of insulin; Z79.84 Long term (current) use of oral hypoglycemic drugs; Z66 Do not resuscitate
CPT/HCPCS: 36415; 70450; 70544; 70551; 76775; 80048; 81001; 82436; 82550; 82553; 82570; 83735; 84133; 84300; 84484; 85025; 85610; 85730; 86850; 86870; 86900; 86901; 93005; 96360; 96361; 96372; 99285; G0378; J1815

== ENCOUNTER 2024-02-10 09:42 | Inpatient (IN) | payer MEDICARE, OTHER ==
[~2024-02-10] VITALS: Ht 152.4 cm; Wt 76.9 kg
[~2024-02-10 09:42] MED LIST changes: -ALIG4CAP PO; +ALIG4CAP3 PO; +ALLO300T2 PO; +FAMO40TA3 PO; +FURO20TA2 PO; +GLIP5TAB17 PO; +MEMA1TAB3 PO; +POTA1TAB23 PO
[2024-02-10] MEDS ORDERED: NS 500 ML IV ONE (09:55)
[2024-02-10] MEDS: LIDOCAINE 2% 5ML JELLY UROJET TOP ONE (10:05)
[2024-02-10] MEDS: NS (Normal Saline) 0.9% 1,000 ML IV ONE (10:13)
[2024-02-10 10:35] LABS: BASO # 0.1 10^3/uL (0.0-0.2); BASO % 0.9 % (0.0-1.0); EOS # 0.2 10^3/uL (0.0-0.5); EOS % 2.7 % (0.0-3.0); HEMATOCRIT 35.4 % (36.0-47.0); HEMOGLOBIN 11.6 g/dl (12.0-15.5); LYMPH # 1.2 10^3/uL (1.5-5.0); LYMPH % 18.3 % (24.0-44.0); MEAN CORPUSCULAR HEMOGLOBIN 29.5 pg (27.0-33.0); MEAN CORPUSCULAR HGB CONC 32.8 g/dl (32.0-36.5); MEAN CORPUSCULAR VOLUME 90.1 fl (80.0-96.0); MONO # 0.7 10^3/uL (0.0-0.8); NEUTROPHILS # 4.5 10^3/uL (1.5-8.5); NEUTROPHILS % 66.8 % (36.0-66.0); PLATELET COUNT, AUTOMATED 156 10^3/uL (150-450); RED BLOOD COUNT 3.93 10^6/uL (4.00-5.40); WHITE BLOOD COUNT 6.7 10^3/uL (4.0-10.0)
[2024-02-10 10:52] LABS: ALBUMIN 3.4 G/DL (3.2-5.2); BILIRUBIN,DIRECT 0.1 MG/DL (<0.4); BILIRUBIN,TOTAL 0.5 MG/DL (0.3-1.2); CALCIUM LEVEL 9.5 MG/DL (8.3-10.6); CREATININE FOR GFR 2.19 MG/DL (0.55-1.30); GLOMERULAR FILTRATION RATE 22.5 (>32); POTASSIUM SERUM 3.9 MMOL/L (3.5-5.1); TOTAL PROTEIN 6.6 G/DL (5.7-8.2)
[2024-02-10 12:05] LABS: PROTEIN, URINE MANUAL REFLEX 3+ mg/dL (NEGATIVE)
[2024-02-10 12:06] LABS: KETONE, URINE MANUAL REFLEX 1+ mg/dL (NEGATIVE); NITRITE, URINE MANUAL RFX NEGATIVE (NEGATIVE); UROBILINOGEN, UA MANUAL REFLEX NORMAL (NORMAL)
[2024-02-10 12:07] LABS: HYALINE CAST, URINE RFX NONE SEEN /lpf (0-1); MICROSCOPIC EXAM RFX UNSPUN; RBC, URINE MAN REFLEX 0-1 /hpf (0-3); SQUAMOUS EPITHELIAL URINE RFX SMALL AMOUNT /hpf (SMALL AMT)
[2024-02-10] MEDS: ACETAMINOPHEN 325 MG TAB PO ONE (12:47)
[2024-02-10 13:39] LABS: CK-MB VALUE MASS < 1.0 NG/ML (<3.6)
[2024-02-10 13:50] LABS: CPK CREATINE PHOSPHOKINASE 62 U/L (34-145); MB/CK RELATIVE INDEX 1.61 (< OR =4)
[2024-02-10 14:40] LABS: CK-MB VALUE MASS 1.5 NG/ML (<3.6)
[2024-02-10 14:41] LABS: MB/CK RELATIVE INDEX 2.45 (< OR =4)
[2024-02-10 16:04] LABS: PROCALCITONIN 0.13 ng/ml
[2024-02-10] MEDS ORDERED: DEXTROSE 50% 50ML SYRINGE IV PRN (16:15)
[2024-02-10] MEDS ORDERED: GLUCAGON INJ 1MG VIAL SC PRN (16:15)
[2024-02-10] MEDS ORDERED: GLUCOSE 4 GM CHEW PO PRN (16:15)
[2024-02-10] MEDS ORDERED: DIVA250T67 PO (16:51)
[2024-02-10] MEDS ORDERED: HOME MED LIST COMPLETE! XX SCH (16:55)
[2024-02-10] MEDS: INSULIN LISPRO (NovoLOG) PER UNIT SC SCH ×2 (17:37→20:57)
[2024-02-11] MEDS: HEPARIN SOD (PORCINE) 5000UNITS/ML 1ML VIAL/SYRINGE SC SCH (00:29)
[2024-02-11] MEDS ORDERED: METHOCARBAMOL 1,000 MG/10 ML VIAL IV ONE (01:35)
[2024-02-11] MEDS: ACETAMINOPHEN *IV* 1,000 MG in IV 1 EA IV ONE (01:49)
[2024-02-11] MEDS: methocarbamoL 500 MG TAB PO PRN (01:49)
[2024-02-11 06:01] LABS: HEMATOCRIT 34.3 % (36.0-47.0); HEMOGLOBIN 10.9 g/dl (12.0-15.5); MEAN CORPUSCULAR HEMOGLOBIN 28.5 pg (27.0-33.0); MEAN CORPUSCULAR HGB CONC 31.8 g/dl (32.0-36.5); MEAN CORPUSCULAR VOLUME 89.6 fl (80.0-96.0); PLATELET COUNT, AUTOMATED 142 10^3/uL (150-450); RED BLOOD COUNT 3.83 10^6/uL (4.00-5.40); WHITE BLOOD COUNT 7.1 10^3/uL (4.0-10.0)
[2024-02-11 06:22] LABS: CREATININE FOR GFR 2.05 MG/DL (0.55-1.30); GLOMERULAR FILTRATION RATE 24.3 (>32); POTASSIUM SERUM 3.7 MMOL/L (3.5-5.1)
[2024-02-11] MEDS ORDERED: NYSTATIN 100,000 UNITS/GM TOPICAL PWD 15GM TOP PRN (07:05)
[2024-02-11] MEDS ORDERED: **SFRHE** EPINEPHrine (EPIPEN) 0.3MG/0.3ML SYRINGE INJ PRN (07:05)
[2024-02-11] MEDS: ACETAMINOPHEN 325 MG TAB PO PRN (07:28)
[2024-02-11] MEDS: GABAPENTIN 100 MG CAP PO SCH (08:34)
[2024-02-11] MEDS: POTASSIUM CHLORIDE 10MEQ SR TABLET PO SCH (08:35)
[2024-02-11] MEDS: FUROSEMIDE 20 MG TAB PO SCH (08:35)
[2024-02-11] MEDS: LEVOTHYROXINE 75MCG TABLET (0.075MG) PO SCH (08:35)
[2024-02-11] MEDS: MONTELUKAST 10 MG TAB PO SCH (08:35)
[2024-02-11] MEDS: allopurinoL 300 MG TAB PO SCH (08:36)
[2024-02-11] MEDS: VITAMIN D 1,000 INTERNATIONAL UNITS TABLET PO SCH (08:36)
[2024-02-11] MEDS: DIVALPROEX 250MG TAB PO SCH (08:36)
[2024-02-11] MEDS: CARVedilol 12.5 MG TAB PO SCH (08:37)
[2024-02-11] MEDS: MEMANTINE 5MG TABLET (NAMENDA) PO SCH (09:01)
[2024-02-11] MEDS: ATORVASTATIN 10 MG TAB PO SCH (10:36)
[2024-02-11] MEDS: FAMOTIDINE 20 MG TAB PO SCH (10:36)
[2024-02-11] MEDS: ACETAMINOPH W/CODEINE #3 TAB UD PO PRN (10:44)
[2024-02-11 16:00] VITALS: BP 129/78; TEMP 97.3; O2SAT 95
[2024-02-11 20:38] VITALS: BP 128/78; TEMP 97.3; O2SAT 95
[2024-02-11] MEDS: rOPINIRole 1MG TAB PO SCH (21:56)
[2024-02-11] MEDS: LATANOPROST 0.005% OPHTH SOLN 2.5 ML OU SCH (21:56)
[2024-02-11] MEDS: EZETIMIBE 10MG TABLET (ZETIA) PO SCH (21:57)
[2024-02-11] MEDS: CETIRIZINE (ZyrTEC) 10 MG TAB PO SCH (21:57)
[2024-02-11] MEDS: AMITRIPTYLINE 50 MG TAB PO SCH (21:57)
[2024-02-11] MEDS: ONDANSETRON 4MG ORAL DISINTEGRATING TAB PO PRN (22:39)
[2024-02-12 04:58] VITALS: BP 118/71; TEMP 97.3; O2SAT 92
[2024-02-12 08:32] LABS: BASO % 0.6 % (0.0-1.0); EOS # 0.2 10^3/uL (0.0-0.5); EOS % 2.5 % (0.0-3.0); HEMATOCRIT 35.1 % (36.0-47.0); HEMOGLOBIN 11.1 g/dl (12.0-15.5); LYMPH # 1.7 10^3/uL (1.5-5.0); LYMPH % 24.4 % (24.0-44.0); MEAN CORPUSCULAR HEMOGLOBIN 28.9 pg (27.0-33.0); MEAN CORPUSCULAR HGB CONC 31.6 g/dl (32.0-36.5); MEAN CORPUSCULAR VOLUME 91.4 fl (80.0-96.0); MONO # 0.7 10^3/uL (0.0-0.8); MONO % 10.9 % (2.0-8.0); NEUTROPHILS # 4.2 10^3/uL (1.5-8.5); NEUTROPHILS % 61.2 % (36.0-66.0); PLATELET COUNT, AUTOMATED 154 10^3/uL (150-450); RED BLOOD COUNT 3.84 10^6/uL (4.00-5.40); WHITE BLOOD COUNT 6.8 10^3/uL (4.0-10.0)
[2024-02-12 08:58] LABS: CALCIUM LEVEL 9.2 MG/DL (8.3-10.6); CREATININE FOR GFR 2.33 MG/DL (0.55-1.30); POTASSIUM SERUM 4.3 MMOL/L (3.5-5.1)
[2024-02-12 12:00] VITALS: BP 117/68; TEMP 97.2; O2SAT 93
[2024-02-12] MEDS: RAMELTEON 8 MG TAB (ROZEREM) PO PRN (21:23)
[2024-02-12] MEDS: LIDOCAINE 5% (LIDODERM) PATCH TD SCH (21:29)
[2024-02-13 04:08] VITALS: BP 132/78; TEMP 97.1; O2SAT 94
[2024-02-13 12:36] LABS: CALCIUM LEVEL 9.3 MG/DL (8.3-10.6); CREATININE FOR GFR 2.66 MG/DL (0.55-1.30); POTASSIUM SERUM 4.3 MMOL/L (3.5-5.1)
[2024-02-13 20:00] VITALS: BP 140/80; TEMP 98; O2SAT 92
[2024-02-14 06:17] LABS: CALCIUM LEVEL 9.1 MG/DL (8.3-10.6); CREATININE FOR GFR 2.68 MG/DL (0.55-1.30); GLOMERULAR FILTRATION RATE 17.9 (>32); POTASSIUM SERUM 4.3 MMOL/L (3.5-5.1)
[2024-02-14 20:12] VITALS: BP 143/79; TEMP 97.3; O2SAT 91
[2024-02-15] VITALS (10 sets, daily range): BP systolic 116–159; BP diastolic 64–80; TEMP 97–97.6; O2SAT 85–97
[2024-02-15 11:33] LABS: CK-MB VALUE MASS < 1.0 NG/ML (<3.6)
[2024-02-15 11:40] LABS: ALBUMIN 2.9 G/DL (3.2-5.2); ALKALINE PHOSPHATASE 97 U/L (35-104); ALT/SGPT 27 U/L (7.0-40); AST/SGOT 26 U/L (<34); BILIRUBIN,TOTAL 0.3 MG/DL (0.3-1.2); BLOOD UREA NITROGEN 40 MG/DL (9-23); CALCIUM LEVEL 9.1 MG/DL (8.3-10.6); CARBON DIOXIDE LEVEL 22 MMOL/L (20-31); CHLORIDE LEVEL 107 MMOL/L (98-107); CREATININE FOR GFR 2.55 MG/DL (0.55-1.30); GLOMERULAR FILTRATION RATE 18.9 (>32); GLUCOSE, FASTING 140 MG/DL (74-106); MAGNESIUM LEVEL 1.9 MG/DL (1.8-2.4); POTASSIUM SERUM 4.4 MMOL/L (3.5-5.1); SODIUM LEVEL 138 MMOL/L (136-145); TOTAL PROTEIN 6.1 G/DL (5.7-8.2)
[2024-02-15 11:41] LABS: PROCALCITONIN 0.22 ng/ml
[2024-02-15 11:43] LABS: CPK CREATINE PHOSPHOKINASE 23 U/L (34-145); MB/CK RELATIVE INDEX 4.34 (< OR =4)
[2024-02-15 12:09] LABS: BASO # 0.1 10^3/uL (0.0-0.2); BASO % 0.5 % (0.0-1.0); EOS # 0.2 10^3/uL (0.0-0.5); EOS % 2.4 % (0.0-3.0); HEMATOCRIT 33.1 % (36.0-47.0); HEMOGLOBIN 10.7 g/dl (12.0-15.5); LYMPH % 22.1 % (24.0-44.0); MEAN CORPUSCULAR HEMOGLOBIN 29.3 pg (27.0-33.0); MEAN CORPUSCULAR HGB CONC 32.3 g/dl (32.0-36.5); MEAN CORPUSCULAR VOLUME 90.7 fl (80.0-96.0); MONO # 1.5 10^3/uL (0.0-0.8); NEUTROPHILS # 5.3 10^3/uL (1.5-8.5); NEUTROPHILS % 58.5 % (36.0-66.0); PLATELET COUNT, AUTOMATED 146 10^3/uL (150-450); RED BLOOD COUNT 3.65 10^6/uL (4.00-5.40); WHITE BLOOD COUNT 9.1 10^3/uL (4.0-10.0)
[2024-02-15 12:14] LABS: INR 1.08; PARTIAL THROMBOPLASTIN TIME 35.4 SECONDS (24.8-34.2); PROTHROMBIN TIME 14.3 SECONDS (12.5-14.5)
[2024-02-15 12:27] LABS: CHOLESTEROL RISK RATIO 3.81 (<5); HDL CHOLESTEROL 39.1 MG/DL (>40); LDL CHOLESTEROL 74.5 MG/DL (<100); NON-HDL-C 109.9 MG/DL
[2024-02-15 12:32] LABS: HEMOGLOBIN A1c 7.2 % (4.0-6.0)
[2024-02-15 14:31] LABS: KETONE, URINE AUTO RFX NEGATIVE (NEGATIVE); LEUKOCYTE ESTERASE UR AUTO RFX NEGATIVE (NEGATIVE); MUCUS, URINE RFX SMALL (NEGATIVE); NITRITE, URINE AUTO RFX NEGATIVE (NEGATIVE); RBC, URINE AUTO RFX 3 /HPF (0-3); SQUAM EPITHELIAL CELL UR AURFX 0 /HPF (0-6); WBC, URINE AUTO RFX 1 /HPF (0-3)
[2024-02-15] MEDS: NS (Normal Saline) 0.9% 1,000 ML IV SCH (17:07)
[2024-02-15] MEDS: rOPINIRole 2MG TAB PO SCH (21:00)
[2024-02-16 04:18] VITALS: BP 159/74; TEMP 97.6; O2SAT 95
[2024-02-16] MEDS: MORPHINE 2 MG/ML 1ML VIAL IV ONE (04:33)
[2024-02-16 07:20] LABS: BASO % 0.4 % (0.0-1.0); EOS # 0.1 10^3/uL (0.0-0.5); EOS % 1.8 % (0.0-3.0); HEMATOCRIT 31.4 % (36.0-47.0); HEMOGLOBIN 10.2 g/dl (12.0-15.5); LYMPH # 1.6 10^3/uL (1.5-5.0); LYMPH % 20.2 % (24.0-44.0); MEAN CORPUSCULAR HGB CONC 32.5 g/dl (32.0-36.5); MEAN CORPUSCULAR VOLUME 89.2 fl (80.0-96.0); MONO # 1.2 10^3/uL (0.0-0.8); MONO % 15.4 % (2.0-8.0); NEUTROPHILS # 4.8 10^3/uL (1.5-8.5); NEUTROPHILS % 61.9 % (36.0-66.0); PLATELET COUNT, AUTOMATED 147 10^3/uL (150-450); RED BLOOD COUNT 3.52 10^6/uL (4.00-5.40); WHITE BLOOD COUNT 7.8 10^3/uL (4.0-10.0)
[2024-02-16 07:38] VITALS: BP 148/73; TEMP 97.6; O2SAT 96
[2024-02-16 07:51] LABS: CALCIUM LEVEL 9.1 MG/DL (8.3-10.6); CREATININE FOR GFR 2.29 MG/DL (0.55-1.30); GLOMERULAR FILTRATION RATE 21.4 (>32)
[2024-02-16 09:47] VITALS: BP 152/69
[2024-02-16] MEDS: oxyCODONE 5MG TAB PO PRN (09:49)
[2024-02-16] MEDS: ASPIRIN 81MG ENTERIC TABLET PO SCH (09:49)
[2024-02-16 10:00] VITALS: O2SAT 93
[2024-02-16 10:30] VITALS: O2SAT 92
[2024-02-16 11:43] VITALS: BP 118/60; TEMP 97.4; O2SAT 95
[2024-02-16] MEDS ORDERED: RAME8TAB2 PO (11:59)
[2024-02-16] MEDS ORDERED: LIDO5TD TD (11:59)
[2024-02-16] MEDS ORDERED: OXYC-517 PO (11:59)
[2024-02-16] MEDS ORDERED: HEPA500023 SC (11:59)
[2024-02-16] MEDS ORDERED: ASPI81TAEC PO (11:59)
[2024-02-16] MEDS: NS (Normal Saline) 0.9% 1,000 ML IV SCH (13:18)
== END 2024-02-16 15:12 | DRG 948 ==
LOC: M ED 09:42 → EDBD 09:42 → M ED INP 09:43 → M MSPAV 02-11 15:51 → M PCU 02-15 11:15 → OBSVTOIN 02-15 11:35
PROVIDERS: ADMIT Internal Medicine; ATTEND Internal Medicine
DX: R41.0 Disorientation, unspecified (principal); F03.A0 Unspecified dementia, mild, without behavioral disturbance, psychotic disturbance, mood disturbance, and anxiety; I12.9 Hypertensive chronic kidney disease with stage 1 through stage 4 chronic kidney disease, or unspecified chronic kidney disease; E11.22 Type 2 diabetes mellitus with diabetic chronic kidney disease; N18.30 Chronic kidney disease, stage 3 unspecified; G43.909 Migraine, unspecified, not intractable, without status migrainosus; E11.40 Type 2 diabetes mellitus with diabetic neuropathy, unspecified; M10.9 Gout, unspecified; K21.9 Gastro-esophageal reflux disease without esophagitis; I16.0 Hypertensive urgency; R07.89 Other chest pain; E73.9 Lactose intolerance, unspecified; G89.29 Other chronic pain; F39 Unspecified mood [affective] disorder; Z66 Do not resuscitate; E55.9 Vitamin D deficiency, unspecified; R53.1 Weakness; M25.551 Pain in right hip; M25.552 Pain in left hip; B34.8 Other viral infections of unspecified site; E03.9 Hypothyroidism, unspecified; J45.909 Unspecified asthma, uncomplicated; Z85.528 Personal history of other malignant neoplasm of kidney; Z90.5 Acquired absence of kidney; Z79.84 Long term (current) use of oral hypoglycemic drugs; Z79.890 Hormone replacement therapy; Z79.899 Other long term (current) drug therapy; Z91.041 Radiographic dye allergy status; Z88.2 Allergy status to sulfonamides; Z91.048 Other nonmedicinal substance allergy status

== ENCOUNTER 2024-02-16 12:05 | Inpatient (IN) | payer MEDICARE, OTHER ==
[~2024-02-16] VITALS: Ht 152.4 cm; Wt 81.4 kg
[~2024-02-16 12:05] MED LIST changes: +DIVA250T67 PO; +HEPA500023 SC; +LIDO5TD TD; +OXYC-517 PO; +RAME8TAB2 PO
[2024-02-16] MEDS ORDERED: GLUCOSE 4 GM CHEW PO PRN (14:45)
[2024-02-16] MEDS ORDERED: MAALOX 30 ML SUSP *UDC PO PRN (14:45)
[2024-02-16] MEDS ORDERED: ONDANSETRON 4MG ORAL DISINTEGRATING TAB PO PRN (14:45)
[2024-02-16] MEDS ORDERED: **SFRHE** EPINEPHrine (EPIPEN) 0.3MG/0.3ML SYRINGE INJ PRN (14:45)
[2024-02-16] MEDS ORDERED: SIMETHICONE 80MG CHEW TAB PO PRN (14:45)
[2024-02-16] MEDS ORDERED: BISACODYL 10MG SUPP PR PRN (14:45)
[2024-02-16] MEDS ORDERED: DEXTROSE 50% 50ML SYRINGE IV PRN (14:45)
[2024-02-16] MEDS ORDERED: GLUCAGON INJ 1MG VIAL SC PRN (14:45)
[2024-02-16] MEDS ORDERED: NYSTATIN 100,000 UNITS/GM TOPICAL PWD 15GM TOP PRN (14:45)
[2024-02-16] MEDS ORDERED: MOM 30ML SUSPENSION UDC PO PRN (14:45)
[2024-02-16] MEDS ORDERED: BISACODYL 5MG TAB PO PRN (14:45)
[2024-02-16] MEDS ORDERED: MIRALAX *UNIT DOSE* 17GM PACKET PO PRN (14:45)
[2024-02-16] MEDS ORDERED: HOME MED LIST COMPLETE! XX SCH (15:45)
[2024-02-16 16:00] VITALS: BP 129/61; TEMP 98.3; O2SAT 92
[2024-02-16] MEDS: INSULIN LISPRO (NovoLOG) PER UNIT SC SCH (16:42)
[2024-02-16] MEDS: oxyCODONE 5MG TAB PO PRN (16:43)
[2024-02-16 20:00] VITALS: BP 160/90; TEMP 97; O2SAT 92
[2024-02-16] MEDS: LIDOCAINE 5% (LIDODERM) PATCH TD SCH (20:14)
[2024-02-16] MEDS: HEPARIN SOD (PORCINE) 5000UNITS/ML 1ML VIAL/SYRINGE SC SCH (20:14)
[2024-02-16] MEDS: DIVALPROEX 250MG TAB PO SCH (20:15)
[2024-02-16] MEDS: rOPINIRole 1MG TAB PO SCH (20:15)
[2024-02-16] MEDS: VITAMIN D 1,000 INTERNATIONAL UNITS TABLET PO SCH (20:15)
[2024-02-16] MEDS: CETIRIZINE (ZyrTEC) 10 MG TAB PO SCH (20:15)
[2024-02-16] MEDS: EZETIMIBE 10MG TABLET (ZETIA) PO SCH (20:15)
[2024-02-16] MEDS: AMITRIPTYLINE 50 MG TAB PO SCH (20:16)
[2024-02-16] MEDS: CARVedilol 12.5 MG TAB PO SCH (20:17)
[2024-02-16] MEDS: LATANOPROST 0.005% OPHTH SOLN 2.5 ML OU SCH (20:17)
[2024-02-17 04:00] VITALS: BP 136/74; TEMP 97.1; O2SAT 92
[2024-02-17] MEDS: LEVOTHYROXINE 75MCG TABLET (0.075MG) PO SCH (05:47)
[2024-02-17 06:22] LABS: BASO % 0.5 % (0.0-1.0); EOS # 0.1 10^3/uL (0.0-0.5); EOS % 2.1 % (0.0-3.0); HEMOGLOBIN 10.2 g/dl (12.0-15.5); LYMPH # 1.4 10^3/uL (1.5-5.0); LYMPH % 22.3 % (24.0-44.0); MEAN CORPUSCULAR HGB CONC 31.9 g/dl (32.0-36.5); MEAN CORPUSCULAR VOLUME 90.9 fl (80.0-96.0); MONO # 0.8 10^3/uL (0.0-0.8); NEUTROPHILS # 3.9 10^3/uL (1.5-8.5); NEUTROPHILS % 62.5 % (36.0-66.0); PLATELET COUNT, AUTOMATED 151 10^3/uL (150-450); RED BLOOD COUNT 3.52 10^6/uL (4.00-5.40); WHITE BLOOD COUNT 6.3 10^3/uL (4.0-10.0)
[2024-02-17 06:44] LABS: CALCIUM LEVEL 9.2 MG/DL (8.3-10.6); CREATININE FOR GFR 2.19 MG/DL (0.55-1.30); GLOMERULAR FILTRATION RATE 22.5 (>32); POTASSIUM SERUM 4.2 MMOL/L (3.5-5.1)
[2024-02-17] MEDS: MONTELUKAST 10 MG TAB PO SCH (07:52)
[2024-02-17] MEDS: ASPIRIN 81MG ENTERIC TABLET PO SCH (07:52)
[2024-02-17] MEDS: ACETAMINOPHEN 325 MG TAB PO PRN (07:53)
[2024-02-17] MEDS: ATORVASTATIN 10 MG TAB PO SCH (07:53)
[2024-02-17] MEDS: FAMOTIDINE 20 MG TAB PO SCH (07:54)
[2024-02-17] MEDS: allopurinoL 300 MG TAB PO SCH (07:54)
[2024-02-17] MEDS: traMADol 50 MG TAB PO SCH (10:00)
[2024-02-17] MEDS: ACETAMINOPHEN 325 MG TAB PO SCH (11:56)
[2024-02-17 12:00] VITALS: BP 140/66; TEMP 97.4; O2SAT 94
[2024-02-17] MEDS ORDERED: LOPERAMIDE 2 MG CAPLET PO PRN (14:35)
[2024-02-17] MEDS: LIDOCAINE 5% (LIDODERM) PATCH TD ONE (14:35)
[2024-02-17] MEDS: LACTOBACILLUS ACIDOPHILUS CAP (BACID) PO SCH (16:23)
[2024-02-17] MEDS: traMADol 50 MG TAB PO ONE (16:25)
[2024-02-17] MEDS ORDERED: OLANZapine 2.5MG TABLET PO PRN (16:40)
[2024-02-17 20:00] VITALS: BP 147/65; TEMP 99; O2SAT 95
[2024-02-17] MEDS: PREGABALIN 25 MG CAP (LYRICA) PO SCH (20:18)
[2024-02-17] MEDS: AUGMENTIN 500MG TAB PO SCH (20:19)
[2024-02-17] MEDS: ACETAMINOPH W/CODEINE #3 TAB UD PO SCH (20:20)
[2024-02-17] MEDS: NYSTATIN 100,000 UNITS/GM TOPICAL PWD 15GM TOP SCH (20:21)
[2024-02-17] MEDS: DICLOFENAC 1% TOP SCH (20:22)
[2024-02-17] MEDS ORDERED: NITROFURANTOIN (MACROBID) 100 MG CAP PO SCH (21:00)
[2024-02-17] MEDS: UNRESOLVED PATIENT OWN MED ORDER XX SCH (21:00)
[2024-02-18] MEDS: traMADol 50 MG TAB PO SCH (04:00)
[2024-02-18 05:03] VITALS: BP 151/70; TEMP 97.8; O2SAT 93
[2024-02-18 07:21] LABS: CALCIUM LEVEL 9.5 MG/DL (8.3-10.6); CREATININE FOR GFR 2.17 MG/DL (0.55-1.30); GLOMERULAR FILTRATION RATE 22.8 (>32)
[2024-02-18 08:22] VITALS: BP 164/82; TEMP 97.1; O2SAT 96
[2024-02-18] MEDS: LIDOCAINE 5% (LIDODERM) PATCH TD SCH (08:50)
[2024-02-18 10:11] VITALS: O2SAT 96
[2024-02-18 12:00] VITALS: BP 149/67; TEMP 97.6; O2SAT 96
[2024-02-18 20:00] VITALS: BP 146/70; TEMP 97.4; O2SAT 95
[2024-02-19 05:01] VITALS: BP 148/77; TEMP 97.4; O2SAT 94
[2024-02-19 07:10] LABS: CREATININE FOR GFR 2.18 MG/DL (0.55-1.30); GLOMERULAR FILTRATION RATE 22.7 (>32)
[2024-02-19 12:00] VITALS: BP 164/78; TEMP 97.2; O2SAT 96
[2024-02-19 19:59] VITALS: BP 169/63; TEMP 97; O2SAT 95
[2024-02-20 04:41] VITALS: BP_SYST 137; BP_SYST 183; BP_SYST 37; BP_DIAS 70; BP_DIAS 85; TEMP 97.3; O2SAT 91
[2024-02-20 07:52] LABS: CALCIUM LEVEL 9.3 MG/DL (8.3-10.6); CREATININE FOR GFR 2.18 MG/DL (0.55-1.30); GLOMERULAR FILTRATION RATE 22.7 (>32); POTASSIUM SERUM 3.9 MMOL/L (3.5-5.1)
[2024-02-20 12:00] VITALS: BP 134/78; TEMP 97.1; O2SAT 94
[2024-02-20 20:00] VITALS: BP 117/78; TEMP 98.2; O2SAT 98
[2024-02-20] MEDS: RAMELTEON 8 MG TAB (ROZEREM) PO PRN (20:27)
[2024-02-21 04:00] VITALS: BP 133/75; TEMP 98.6; O2SAT 95
[2024-02-21 07:20] LABS: CREATININE FOR GFR 2.27 MG/DL (0.55-1.30); GLOMERULAR FILTRATION RATE 21.6 (>32); POTASSIUM SERUM 4.2 MMOL/L (3.5-5.1)
[2024-02-21 12:00] VITALS: BP 134/74; TEMP 97.5; O2SAT 95
[2024-02-21 20:00] VITALS: BP 168/93; TEMP 98; O2SAT 96
[2024-02-22 04:00] VITALS: BP 125/65; TEMP 98.3; O2SAT 97
[2024-02-22 08:45] LABS: CALCIUM LEVEL 9.2 MG/DL (8.3-10.6); CREATININE FOR GFR 2.55 MG/DL (0.55-1.30); GLOMERULAR FILTRATION RATE 18.9 (>32); POTASSIUM SERUM 4.6 MMOL/L (3.5-5.1)
[2024-02-22 12:00] VITALS: BP 110/70; TEMP 97.6; O2SAT 96
[2024-02-22] MEDS: MEMANTINE 5MG TABLET (NAMENDA) PO SCH (13:55)
[2024-02-22 15:02] LABS: BASO % 0.4 % (0.0-1.0); EOS # 0.1 10^3/uL (0.0-0.5); EOS % 1.2 % (0.0-3.0); HEMATOCRIT 31.8 % (36.0-47.0); HEMOGLOBIN 10.3 g/dl (12.0-15.5); LYMPH # 1.9 10^3/uL (1.5-5.0); LYMPH % 17.3 % (24.0-44.0); MEAN CORPUSCULAR HEMOGLOBIN 28.9 pg (27.0-33.0); MEAN CORPUSCULAR HGB CONC 32.4 g/dl (32.0-36.5); MEAN CORPUSCULAR VOLUME 89.1 fl (80.0-96.0); MONO # 1.2 10^3/uL (0.0-0.8); MONO % 11.2 % (2.0-8.0); NEUTROPHILS # 7.5 10^3/uL (1.5-8.5); NEUTROPHILS % 69.3 % (36.0-66.0); PLATELET COUNT, AUTOMATED 168 10^3/uL (150-450); RED BLOOD COUNT 3.57 10^6/uL (4.00-5.40); WHITE BLOOD COUNT 10.8 10^3/uL (4.0-10.0)
[2024-02-22] MEDS: glipiZIDE XL 5 MG TABCR PO SCH (17:15)
[2024-02-22 19:31] VITALS: BP 154/76; TEMP 97.9; O2SAT 90
[2024-02-22 20:00] VITALS: BP 168/93; TEMP 98; O2SAT 96
[2024-02-22] MEDS: DONEPEZIL 5 MG TAB PO SCH (20:58)
[2024-02-23 04:00] VITALS: BP 131/87; TEMP 97.6; O2SAT 93
[2024-02-23 06:57] LABS: CALCIUM LEVEL 8.9 MG/DL (8.3-10.6); CREATININE FOR GFR 2.53 MG/DL (0.55-1.30); GLOMERULAR FILTRATION RATE 19.1 (>32); POTASSIUM SERUM 3.9 MMOL/L (3.5-5.1)
[2024-02-23] MEDS: SITagliptin 50 MG TAB (JANUVIA) PO SCH (09:00)
[2024-02-23] MEDS ORDERED: PILL CUTTER 1 EACH XX PRN (11:05)
[2024-02-23] MEDS ORDERED: CHLORASEPTIC SPRAY MT PRN (11:40)
[2024-02-23] MEDS ORDERED: SODIUM CHLORIDE NASAL 0.65% SPRAY BTL (OCEAN) PRN (11:40)
[2024-02-23 12:00] VITALS: BP 135/63; TEMP 99.2; O2SAT 90
[2024-02-23] MEDS ORDERED: MEMA1TAB3 PO (12:03)
[2024-02-23] MEDS ORDERED: DIVA250T67 PO (12:03)
[2024-02-23] MEDS ORDERED: ARIC1TAB PO (12:03)
[2024-02-23] MEDS ORDERED: MONT-5 PO (12:03)
[2024-02-23] MEDS ORDERED: LEVO75TA4 PO (12:03)
[2024-02-23] MEDS ORDERED: AMIT75TA PO (12:03)
[2024-02-23] MEDS ORDERED: EZET10TA58 PO (12:03)
[2024-02-23] MEDS ORDERED: ACET-716 PO (12:03)
[2024-02-23] MEDS ORDERED: ATOR1TAB19 PO (12:03)
[2024-02-23] MEDS ORDERED: ROPI4TAB PO (12:03)
[2024-02-23] MEDS ORDERED: CARV12.5 PO (12:03)
[2024-02-23] MEDS ORDERED: SITA50TAB PO (12:03)
[2024-02-23 19:30] VITALS: BP 113/57; TEMP 98.4; O2SAT 93
[2024-02-24 04:08] VITALS: BP 156/76; TEMP 97.6; O2SAT 96
[2024-02-24 07:59] LABS: CALCIUM LEVEL 9.2 MG/DL (8.3-10.6); CREATININE FOR GFR 2.57 MG/DL (0.55-1.30); GLOMERULAR FILTRATION RATE 18.7 (>32); POTASSIUM SERUM 4.2 MMOL/L (3.5-5.1)
[2024-02-24 10:22] VITALS: BP 156/76
[2024-02-24 12:00] VITALS: BP 115/62; TEMP 98.6; O2SAT 94
== END 2024-02-24 13:30 | disposition home health service (06) | DRG 565 ==
LOC: M PM&R 15:15
PROVIDERS: ADMIT Physical Medicine & Rehabilitation; ATTEND Physical Medicine & Rehabilitation
DX: M85.851 Other specified disorders of bone density and structure, right thigh (principal); N39.0 Urinary tract infection, site not specified; N17.9 Acute kidney failure, unspecified; M85.852 Other specified disorders of bone density and structure, left thigh; R53.81 Other malaise; F03.B0 Unspecified dementia, moderate, without behavioral disturbance, psychotic disturbance, mood disturbance, and anxiety; I12.9 Hypertensive chronic kidney disease with stage 1 through stage 4 chronic kidney disease, or unspecified chronic kidney disease; E11.22 Type 2 diabetes mellitus with diabetic chronic kidney disease; N18.30 Chronic kidney disease, stage 3 unspecified; G43.909 Migraine, unspecified, not intractable, without status migrainosus; E03.9 Hypothyroidism, unspecified; E11.40 Type 2 diabetes mellitus with diabetic neuropathy, unspecified; J45.909 Unspecified asthma, uncomplicated; G47.00 Insomnia, unspecified; J06.9 Acute upper respiratory infection, unspecified; B97.89 Other viral agents as the cause of diseases classified elsewhere; M10.9 Gout, unspecified; M81.0 Age-related osteoporosis without current pathological fracture; M16.0 Bilateral primary osteoarthritis of hip; Z66 Do not resuscitate; E73.9 Lactose intolerance, unspecified; Z79.82 Long term (current) use of aspirin; Z79.4 Long term (current) use of insulin; Z79.899 Other long term (current) drug therapy; Z79.890 Hormone replacement therapy; Z88.2 Allergy status to sulfonamides; Z91.041 Radiographic dye allergy status; M25.551 Pain in right hip; M25.552 Pain in left hip; Z96.653 Presence of artificial knee joint, bilateral; Z85.528 Personal history of other malignant neoplasm of kidney; Z90.5 Acquired absence of kidney

== ENCOUNTER 2024-03-03 12:49 | Inpatient (IN) | payer MEDICARE, OTHER ==
[~2024-03-03] VITALS: Ht 152.4 cm; Wt 80.3 kg
[~2024-03-03 12:49] MED LIST changes: +ACET-716 PO; +ARIC1TAB PO; +ATOR1TAB19 PO; +ROPI4TAB PO; +SITA50TAB PO
[2024-03-03 13:29] LABS: VENOUS BASE EXCESS -3.1 (-2.0-2.0); VENOUS HCO3 23.5 MMOL/L (23.0-27.0); VENOUS O2 SATURATION 65.2 % (60.0-80.0); VENOUS PARTIAL PRESSURE O2 34.9 mmHg (30.0-50.0); VENOUS PH 7.299 UNITS (7.330-7.430); VENOUS STANDARD HCO3 21.2 MMOL/L
[2024-03-03 13:34] LABS: BASO % 0.3 % (0.0-1.0); EOS # 0.2 10^3/uL (0.0-0.5); EOS % 2.7 % (0.0-3.0); HEMATOCRIT 33.9 % (36.0-47.0); HEMOGLOBIN 10.8 g/dl (12.0-15.5); LYMPH # 1.9 10^3/uL (1.5-5.0); LYMPH % 28.1 % (24.0-44.0); MEAN CORPUSCULAR HGB CONC 31.9 g/dl (32.0-36.5); MEAN CORPUSCULAR VOLUME 90.9 fl (80.0-96.0); MONO # 0.7 10^3/uL (0.0-0.8); MONO % 10.1 % (2.0-8.0); NEUTROPHILS # 3.9 10^3/uL (1.5-8.5); NEUTROPHILS % 58.2 % (36.0-66.0); PLATELET COUNT, AUTOMATED 172 10^3/uL (150-450); RED BLOOD COUNT 3.73 10^6/uL (4.00-5.40); WHITE BLOOD COUNT 6.8 10^3/uL (4.0-10.0)
[2024-03-03 14:14] LABS: PROCALCITONIN 0.08 ng/ml
[2024-03-03 14:16] LABS: ALBUMIN 2.8 G/DL (3.2-5.2); ALKALINE PHOSPHATASE 73 U/L (35-104); ALT/SGPT 21 U/L (7.0-40); AST/SGOT 42 U/L (<34); BILIRUBIN,DIRECT < 0.1 MG/DL (<0.4); BILIRUBIN,TOTAL 0.3 MG/DL (0.3-1.2); BLOOD UREA NITROGEN 34 MG/DL (9-23); CARBON DIOXIDE LEVEL 26 MMOL/L (20-31); CHLORIDE LEVEL 105 MMOL/L (98-107); CREATININE FOR GFR 2.26 MG/DL (0.55-1.30); GLOMERULAR FILTRATION RATE 21.7 (>32); GLUCOSE, FASTING 143 MG/DL (74-106); POTASSIUM SERUM 5.8 MMOL/L (3.5-5.1); SODIUM LEVEL 140 MMOL/L (136-145); THYROID STIMULATING HORMONE 0.524 uIU/ML (0.55-4.78); TOTAL PROTEIN 6.4 G/DL (5.7-8.2)
[2024-03-03 16:54] LABS: VALPROIC ACID (DEPAKOTE) 49.4 UG/ML (50.0-100.0)
[2024-03-03] MEDS ORDERED: ASPI81TA26 PO (18:20)
[2024-03-03] MEDS ORDERED: GABA-1172 PO (18:20)
[2024-03-03] MEDS ORDERED: LOMO2.5T PO (18:20)
[2024-03-03] MEDS ORDERED: MONT10TA97 PO (18:20)
[2024-03-03] MEDS ORDERED: SITA50TAB PO (18:20)
[2024-03-03] MEDS ORDERED: ACET-716 PO (18:20)
[2024-03-03] MEDS ORDERED: EZET10TA21 PO (18:20)
[2024-03-03] MEDS ORDERED: DONE10TA90 PO (18:20)
[2024-03-03] MEDS ORDERED: LIDO1PAD TOP (18:20)
[2024-03-03] MEDS ORDERED: POTA-150 PO (18:20)
[2024-03-03] MEDS ORDERED: ATOR1TAB19 PO (18:20)
[2024-03-03] MEDS ORDERED: SYNT75TA PO (18:20)
[2024-03-03] MEDS ORDERED: ROPI4TAB36 PO (18:20)
[2024-03-03] MEDS ORDERED: HOME MED LIST COMPLETE! XX SCH (18:25)
[2024-03-03 19:41] LABS: FREE T4 1.46 NG/DL (0.89-1.76)
[2024-03-03] MEDS ORDERED: NYSTATIN 100,000 UNITS/GM TOPICAL PWD 15GM TOP PRN (19:45)
[2024-03-03] MEDS ORDERED: LIDOCAINE 5% (LIDODERM) PATCH TD ONE (20:10)
[2024-03-03] MEDS ORDERED: GLUCAGON INJ 1MG VIAL SC PRN (20:20)
[2024-03-03] MEDS ORDERED: GLUCOSE 4 GM CHEW PO PRN (20:20)
[2024-03-03] MEDS ORDERED: DEXTROSE 50% 50ML SYRINGE IV PRN (20:20)
[2024-03-03] MEDS ORDERED: MEMANTINE 5MG TABLET (NAMENDA) PO SCH (21:00)
[2024-03-03] MEDS ORDERED: ANALGESIC BALM CRM 3OZ TOP PRN (21:00)
[2024-03-03] MEDS ORDERED: ANALGESIC BALM CRM 3OZ TOP SCH (21:00)
[2024-03-03] MEDS: SENNA 8.6 MG TAB (SENOKOT) PO SCH (21:09)
[2024-03-03] MEDS: MIRALAX *UNIT DOSE* 17GM PACKET PO SCH (21:09)
[2024-03-03] MEDS: ACETAMINOPHEN 500 MG TAB PO PRN (21:09)
[2024-03-03 21:36] VITALS: BP 167/77; TEMP 98.1; O2SAT 96
[2024-03-03] MEDS: AMITRIPTYLINE 25MG TABLET PO SCH (22:34)
[2024-03-03] MEDS: LIDOCAINE 5% (LIDODERM) PATCH TOP SCH (22:34)
[2024-03-03] MEDS: LATANOPROST 0.005% OPHTH SOLN 2.5 ML OU SCH (22:34)
[2024-03-03] MEDS: EZETIMIBE 10MG TABLET (ZETIA) PO SCH (22:34)
[2024-03-03] MEDS: GABAPENTIN 100 MG CAP PO SCH (22:35)
[2024-03-03 22:49] LABS: CALCIUM LEVEL 9.1 MG/DL (8.3-10.6); CREATININE FOR GFR 2.3 MG/DL (0.55-1.30); FERRITIN 73.6 NG/ML (7.3-270.7); GLOMERULAR FILTRATION RATE 21.3 (>32); POTASSIUM SERUM 4.2 MMOL/L (3.5-5.1)
[2024-03-04] VITALS (7 sets, daily range): BP systolic 108–144; BP diastolic 62–79; TEMP 97.2–98.2; O2SAT 94–96
[2024-03-04 06:16] LABS: HEMATOCRIT 32.9 % (36.0-47.0); HEMOGLOBIN 10.6 g/dl (12.0-15.5); MEAN CORPUSCULAR HGB CONC 32.2 g/dl (32.0-36.5); MEAN CORPUSCULAR VOLUME 90.1 fl (80.0-96.0); PLATELET COUNT, AUTOMATED 162 10^3/uL (150-450); RED BLOOD COUNT 3.65 10^6/uL (4.00-5.40); WHITE BLOOD COUNT 6.6 10^3/uL (4.0-10.0)
[2024-03-04] MEDS: LEVOTHYROXINE 75MCG TABLET (0.075MG) PO SCH (06:34)
[2024-03-04 06:43] LABS: CALCIUM LEVEL 9.1 MG/DL (8.3-10.6); CREATININE FOR GFR 2.3 MG/DL (0.55-1.30); GLOMERULAR FILTRATION RATE 21.3 (>32); MAGNESIUM LEVEL 1.9 MG/DL (1.8-2.4); POTASSIUM SERUM 4.2 MMOL/L (3.5-5.1)
[2024-03-04] MEDS: INSULIN LISPRO (NovoLOG) PER UNIT SC SCH (07:30)
[2024-03-04 07:54] LABS: HEMATOCRIT 33.6 % (36.0-47.0); HEMOGLOBIN 10.7 g/dl (12.0-15.5); MEAN CORPUSCULAR HEMOGLOBIN 28.8 pg (27.0-33.0); MEAN CORPUSCULAR HGB CONC 31.8 g/dl (32.0-36.5); MEAN CORPUSCULAR VOLUME 90.6 fl (80.0-96.0); PLATELET COUNT, AUTOMATED 169 10^3/uL (150-450); RED BLOOD COUNT 3.71 10^6/uL (4.00-5.40); WHITE BLOOD COUNT 6.7 10^3/uL (4.0-10.0)
[2024-03-04] MEDS: ASPIRIN 81MG ENTERIC TABLET PO SCH (08:08)
[2024-03-04] MEDS: FAMOTIDINE 20 MG TAB PO SCH (08:08)
[2024-03-04] MEDS: allopurinoL 300 MG TAB PO SCH (08:08)
[2024-03-04] MEDS: MEMANTINE 5MG TABLET (NAMENDA) PO SCH (08:09)
[2024-03-04] MEDS: DIVALPROEX 250MG TAB PO SCH (08:09)
[2024-03-04] MEDS: ATORVASTATIN 10 MG TAB PO SCH (08:09)
[2024-03-04 08:24] LABS: CALCIUM LEVEL 8.9 MG/DL (8.3-10.6); CREATININE FOR GFR 2.37 MG/DL (0.55-1.30); GLOMERULAR FILTRATION RATE 20.6 (>32); MAGNESIUM LEVEL 1.9 MG/DL (1.8-2.4); POTASSIUM SERUM 4.3 MMOL/L (3.5-5.1)
[2024-03-04] MEDS ORDERED: LIDOCAINE 5% (LIDODERM) PATCH TOP SCH (09:00)
[2024-03-04 11:31] LABS: FOLATE 18.83 NG/ML (>5.4)
[2024-03-04] MEDS: BISACODYL 10MG SUPP PR SCH (16:47)
[2024-03-04 19:24] LABS: APPEARANCE, URINE CLEAR (CLEAR); BACTERIA, URINE AUTO NEGATIVE (NEGATIVE); BILIRUBIN, URINE AUTO NEGATIVE (NEGATIVE); BLOOD, URINE BLOOD NEGATIVE (NEGATIVE); COLOR, URINE YELLOW (YELLOW); GLUCOSE, URINE (UA) AUTO 1+ mg/dL (NEGATIVE); KETONE, URINE AUTO NEGATIVE (NEGATIVE); LEUKOCYTE ESTERASE, URINE AUTO TRACE (NEGATIVE); MUCUS, URINE SMALL (NEGATIVE); NITRITE, URINE AUTO NEGATIVE (NEGATIVE); PROTEIN, URINE AUTO 2+ mg/dL (NEGATIVE); RBC, URINE AUTO 1 /HPF (0-3); SPECIFIC GRAVITY URINE AUTO 1.018 (1.002-1.035); SQUAMOUS EPITHELIAL CELL UR AU 0 /HPF (0-6); UROBILINOGEN, URINE AUTO 0.2 mg/dL (0.0-2.0); WBC, URINE AUTO 7 /HPF (0-3)
[2024-03-05] VITALS (7 sets, daily range): BP systolic 123–149; BP diastolic 65–75; TEMP 96.8–98.6; O2SAT 92–97
[2024-03-05 08:16] LABS: HEMOGLOBIN 10.7 g/dl (12.0-15.5); MEAN CORPUSCULAR HEMOGLOBIN 29.1 pg (27.0-33.0); MEAN CORPUSCULAR HGB CONC 32.4 g/dl (32.0-36.5); MEAN CORPUSCULAR VOLUME 89.7 fl (80.0-96.0); PLATELET COUNT, AUTOMATED 157 10^3/uL (150-450); RED BLOOD COUNT 3.68 10^6/uL (4.00-5.40); WHITE BLOOD COUNT 8.5 10^3/uL (4.0-10.0)
[2024-03-05 08:39] LABS: CREATININE FOR GFR 2.55 MG/DL (0.55-1.30); GLOMERULAR FILTRATION RATE 18.9 (>32); MAGNESIUM LEVEL 1.9 MG/DL (1.8-2.4); POTASSIUM SERUM 4.3 MMOL/L (3.5-5.1)
[2024-03-06] VITALS (12 sets, daily range): BP systolic 104–143; BP diastolic 61–84; TEMP 96.6–97.2; O2SAT 93–97
[2024-03-06 06:04] LABS: ABG BASE EXCESS 0.1 (-2.0-2.0); ABG HCO3 24.7 MMOL/L (22.0-26.0); ABG O2 SATURATION 95.7 % (95.0-99.0); ABG PARTIAL PRESSURE CO2 40.2 mmHg (35.0-45.0); ABG PARTIAL PRESSURE O2 76.9 mmHg (75.0-100.0); ABG STANDARD HCO3 24.5 MMOL/L. (22.0-26.0); ABG pH (ARTERIAL) 7.407 UNITS (7.350-7.450)
[2024-03-06 06:11] LABS: HEMATOCRIT 34.3 % (36.0-47.0); HEMOGLOBIN 11.1 g/dl (12.0-15.5); MEAN CORPUSCULAR HEMOGLOBIN 29.1 pg (27.0-33.0); MEAN CORPUSCULAR HGB CONC 32.4 g/dl (32.0-36.5); PLATELET COUNT, AUTOMATED 154 10^3/uL (150-450); RED BLOOD COUNT 3.81 10^6/uL (4.00-5.40)
[2024-03-06 06:39] LABS: CALCIUM LEVEL 8.9 MG/DL (8.3-10.6); CREATININE FOR GFR 2.63 MG/DL (0.55-1.30); GLOMERULAR FILTRATION RATE 18.2 (>32); MAGNESIUM LEVEL 1.9 MG/DL (1.8-2.4); POTASSIUM SERUM 4.6 MMOL/L (3.5-5.1)
[2024-03-06] MEDS: HEPARIN SOD (PORCINE) 5000UNITS/ML 1ML VIAL/SYRINGE SQ SCH (08:27)
[2024-03-06] MEDS: CIPROFLOXACIN 500MG TABLET PO SCH (12:22)
[2024-03-06] MEDS: RAMELTEON 8 MG TAB (ROZEREM) PO PRN (23:52)
[2024-03-07] VITALS (12 sets, daily range): BP systolic 111–130; BP diastolic 65–82; TEMP 96.4–97; O2SAT 77–99
[2024-03-07 06:04] LABS: HEMATOCRIT 30.8 % (36.0-47.0); MEAN CORPUSCULAR HEMOGLOBIN 28.8 pg (27.0-33.0); MEAN CORPUSCULAR HGB CONC 32.5 g/dl (32.0-36.5); MEAN CORPUSCULAR VOLUME 88.8 fl (80.0-96.0); PLATELET COUNT, AUTOMATED 139 10^3/uL (150-450); RED BLOOD COUNT 3.47 10^6/uL (4.00-5.40); WHITE BLOOD COUNT 10.8 10^3/uL (4.0-10.0)
[2024-03-07 06:26] LABS: CALCIUM LEVEL 9.1 MG/DL (8.3-10.6); CREATININE FOR GFR 2.72 MG/DL (0.55-1.30); GLOMERULAR FILTRATION RATE 17.6 (>32); MAGNESIUM LEVEL 1.9 MG/DL (1.8-2.4); POTASSIUM SERUM 4.2 MMOL/L (3.5-5.1)
[2024-03-07] MEDS: NITROFURANTOIN (MACROBID) 100 MG CAP PO SCH (12:18)
[2024-03-08] VITALS (8 sets, daily range): BP systolic 117–124; BP diastolic 61–90; TEMP 96.6–97.5; O2SAT 94–99
[2024-03-08 06:29] LABS: HEMOGLOBIN 10.1 g/dl (12.0-15.5); MEAN CORPUSCULAR HEMOGLOBIN 29.4 pg (27.0-33.0); MEAN CORPUSCULAR HGB CONC 32.6 g/dl (32.0-36.5); MEAN CORPUSCULAR VOLUME 90.4 fl (80.0-96.0); PLATELET COUNT, AUTOMATED 127 10^3/uL (150-450); RED BLOOD COUNT 3.43 10^6/uL (4.00-5.40); WHITE BLOOD COUNT 7.3 10^3/uL (4.0-10.0)
[2024-03-08 06:55] LABS: CALCIUM LEVEL 8.8 MG/DL (8.3-10.6); CREATININE FOR GFR 2.49 MG/DL (0.55-1.30); GLOMERULAR FILTRATION RATE 19.4 (>32); POTASSIUM SERUM 4.3 MMOL/L (3.5-5.1)
[2024-03-08] MEDS: AMITRIPTYLINE 50 MG TAB PO SCH (20:24)
[2024-03-09] VITALS: BP 124/70; TEMP 97.5; O2SAT 94
[2024-03-09 03:43] VITALS: BP 124/70; TEMP 97.3; O2SAT 93
[2024-03-09 05:47] LABS: HEMATOCRIT 30.9 % (36.0-47.0); MEAN CORPUSCULAR HEMOGLOBIN 29.2 pg (27.0-33.0); MEAN CORPUSCULAR HGB CONC 32.4 g/dl (32.0-36.5); MEAN CORPUSCULAR VOLUME 90.1 fl (80.0-96.0); PLATELET COUNT, AUTOMATED 149 10^3/uL (150-450); RED BLOOD COUNT 3.43 10^6/uL (4.00-5.40); WHITE BLOOD COUNT 7.9 10^3/uL (4.0-10.0)
[2024-03-09 06:11] LABS: CALCIUM LEVEL 8.9 MG/DL (8.3-10.6); CREATININE FOR GFR 2.37 MG/DL (0.55-1.30); GLOMERULAR FILTRATION RATE 20.6 (>32); MAGNESIUM LEVEL 1.9 MG/DL (1.8-2.4); POTASSIUM SERUM 4.5 MMOL/L (3.5-5.1)
[2024-03-09 08:01] VITALS: BP 125/69; TEMP 97; O2SAT 93
[2024-03-09 08:36] VITALS: BP_SYST 114; BP_SYST 120; BP_SYST 121; BP_DIAS 66; BP_DIAS 70; BP_DIAS 72
[2024-03-09] MEDS ORDERED: AMIT25TA19 PO (10:51)
[2024-03-09] MEDS ORDERED: GABA-1171 PO (10:51)
== END 2024-03-09 12:08 | disposition home health service (06) | DRG 312 ==
LOC: EDBD 12:49 → M ED 12:49 → M ED INP 20:18 → M PCU 21:28 → M MSPAV 03-05 13:32
PROVIDERS: ADMIT Student in an Organized Health Care Education/Training Program; ATTEND Internal Medicine
PROC: B246ZZZ Ultrasonography of Right and Left Heart (ICD-10-PCS; principal; 2024-03-04)
DX: R55 Syncope and collapse (principal); G92.8 Other toxic encephalopathy; N18.4 Chronic kidney disease, stage 4 (severe); N17.9 Acute kidney failure, unspecified; N39.0 Urinary tract infection, site not specified; T43.015A Adverse effect of tricyclic antidepressants, initial encounter; G25.81 Restless legs syndrome; F03.A0 Unspecified dementia, mild, without behavioral disturbance, psychotic disturbance, mood disturbance, and anxiety; I12.9 Hypertensive chronic kidney disease with stage 1 through stage 4 chronic kidney disease, or unspecified chronic kidney disease; E11.22 Type 2 diabetes mellitus with diabetic chronic kidney disease; E11.40 Type 2 diabetes mellitus with diabetic neuropathy, unspecified; M10.9 Gout, unspecified; K21.9 Gastro-esophageal reflux disease without esophagitis; G89.29 Other chronic pain; K59.09 Other constipation; Z66 Do not resuscitate; K52.9 Noninfective gastroenteritis and colitis, unspecified; G43.709 Chronic migraine without aura, not intractable, without status migrainosus; D63.1 Anemia in chronic kidney disease; H40.9 Unspecified glaucoma; E03.9 Hypothyroidism, unspecified; R53.83 Other fatigue; J44.9 Chronic obstructive pulmonary disease, unspecified; Z79.82 Long term (current) use of aspirin; Z79.890 Hormone replacement therapy; Z79.899 Other long term (current) drug therapy; Z79.84 Long term (current) use of oral hypoglycemic drugs; Z88.2 Allergy status to sulfonamides; Z91.041 Radiographic dye allergy status; Z90.5 Acquired absence of kidney; Z96.653 Presence of artificial knee joint, bilateral; Z90.49 Acquired absence of other specified parts of digestive tract; Z85.528 Personal history of other malignant neoplasm of kidney; Z86.73 Personal history of transient ischemic attack (TIA), and cerebral infarction without residual deficits; R29.6 Repeated falls; E78.5 Hyperlipidemia, unspecified; B96.1 Klebsiella pneumoniae [K. pneumoniae] as the cause of diseases classified elsewhere; B95.2 Enterococcus as the cause of diseases classified elsewhere; B95.8 Unspecified staphylococcus as the cause of diseases classified elsewhere

== ENCOUNTER 2024-05-19 19:39 | Emergency (ER) | payer MEDICARE, OTHER ==
[~2024-05-19] VITALS: Ht 152.4 cm; Wt 77.1 kg
[~2024-05-19 19:39] MED LIST changes: +AMIT25TA19 PO; +ASPI81TA26 PO; +EZET10TA21 PO; +GABA-1171 PO; +LIDO1PAD TOP; +MONT10TA97 PO; +POTA-150 PO; +ROPI4TAB36 PO; +SYNT75TA PO
[2024-05-19 20:11] LABS: KETONE, URINE AUTO RFX NEGATIVE (NEGATIVE); NITRITE, URINE AUTO RFX NEGATIVE (NEGATIVE); RBC, URINE AUTO RFX TNTC /HPF (0-3); SQUAM EPITHELIAL CELL UR AURFX 0 /HPF (0-6)
[2024-05-19 20:13] LABS: LEUKOCYTE ESTERASE UR AUTO RFX 3+ (NEGATIVE); WBC, URINE AUTO RFX TNTC /HPF (0-3)
[2024-05-19] MEDS: oxyCODONE 5MG TAB PO ONE (21:05)
[2024-05-19 21:52] LABS: BASO % 0.4 % (0.0-1.0); EOS # 0.3 10^3/uL (0.0-0.5); EOS % 2.9 % (0.0-3.0); HEMATOCRIT 35.6 % (36.0-47.0); HEMOGLOBIN 11.4 g/dl (12.0-15.5); LYMPH # 2.1 10^3/uL (1.5-5.0); LYMPH % 19.7 % (24.0-44.0); MEAN CORPUSCULAR HEMOGLOBIN 28.7 pg (27.0-33.0); MEAN CORPUSCULAR VOLUME 89.7 fl (80.0-96.0); MONO # 1.2 10^3/uL (0.0-0.8); MONO % 11.6 % (2.0-8.0); NEUTROPHILS # 6.9 10^3/uL (1.5-8.5); NEUTROPHILS % 64.9 % (36.0-66.0); PLATELET COUNT, AUTOMATED 133 10^3/uL (150-450); RED BLOOD COUNT 3.97 10^6/uL (4.00-5.40); WHITE BLOOD COUNT 10.7 10^3/uL (4.0-10.0)
[2024-05-19 22:02] LABS: CALCIUM LEVEL 8.3 MG/DL (8.3-10.6); CREATININE FOR GFR 2.23 MG/DL (0.55-1.30); GLOMERULAR FILTRATION RATE 20.7 (>32); POTASSIUM SERUM 4.2 MMOL/L (3.5-5.1)
[2024-05-19] MEDS: NITROFURANTOIN (MACROBID) 100 MG CAP PO ONE (22:13)
[2024-05-20] MEDS ORDERED: NITR-67 PO (00:03)
[2024-05-20] MEDS: traMADol 50 MG TAB (HOME DOSE PACK) PO ONE (00:10)
[2024-05-20 00:31] VITALS: BP 136/74; TEMP 98; O2SAT 96
== END 2024-05-20 00:44 | disposition home or self-care (01) ==
LOC: M ED 19:39
DX: N39.0 Urinary tract infection, site not specified (principal); R31.9 Hematuria, unspecified; E11.9 Type 2 diabetes mellitus without complications; E03.9 Hypothyroidism, unspecified; I10 Essential (primary) hypertension; J44.9 Chronic obstructive pulmonary disease, unspecified; K21.9 Gastro-esophageal reflux disease without esophagitis; E78.5 Hyperlipidemia, unspecified; M79.7 Fibromyalgia; Z88.2 Allergy status to sulfonamides; Z91.011 Allergy to milk products; Z91.018 Allergy to other foods; Z79.1 Long term (current) use of non-steroidal anti-inflammatories (NSAID); Z79.4 Long term (current) use of insulin; Z79.899 Other long term (current) drug therapy

== ENCOUNTER → 2024-06-12 | Outpatient (REF) | payer MEDICARE, OTHER ==
[~2024-06-12] MED LIST changes: +NITR-67 PO; -NYST-13 TOP; +NYST0.1C TOP
== END ==
LOC: M SFHCDERM 16:33
PROVIDERS: ATTEND Physician Assistant
DX: C44.91 Basal cell carcinoma of skin, unspecified (principal)

== ENCOUNTER 2024-08-11 21:28 | Inpatient (IN) | payer MEDICARE, OTHER ==
[~2024-08-11] VITALS: Ht 152.4 cm; Wt 81.5 kg
[~2024-08-11 21:28] MED LIST changes: +LIDO1ADH93 TD; -LIDO5DIS41 TD
[2024-08-11 22:17] LABS: BASO # 0.0 10^3/uL (0.0-0.2); BASO % 0.3 % (0.0-1.0); EOS # 0.1 10^3/uL (0.0-0.5); EOS % 0.6 % (0.0-3.0); LYMPH # 1.7 10^3/uL (1.5-5.0); LYMPH % 10.6 % (24.0-44.0); MONO # 2.0 10^3/uL (0.0-0.8); MONO % 12.6 % (2.0-8.0); NEUTROPHILS # 11.8 10^3/uL (1.5-8.5); NEUTROPHILS % 75.1 % (36.0-66.0); PLATELET COUNT, AUTOMATED 130 10^3/uL (150-450)
[2024-08-11 22:20] LABS: KETONE, URINE AUTO RFX TRACE mg/dL (NEGATIVE); LEUKOCYTE ESTERASE UR AUTO RFX TRACE (NEGATIVE); NITRITE, URINE AUTO RFX NEGATIVE (NEGATIVE); RBC, URINE AUTO RFX 1 /HPF (0-3); SQUAM EPITHELIAL CELL UR AURFX 1 /HPF (0-6); TRANSITIONAL EPITHELIAL AU RFX <1 /HPF; WBC, URINE AUTO RFX 10 /HPF (0-3)
[2024-08-11 22:35] LABS: CK-MB VALUE MASS 1.0 NG/ML (<3.6); CPK CREATINE PHOSPHOKINASE 45.0 U/L (34-145); MB/CK RELATIVE INDEX 2.22 (< OR =4)
[2024-08-11 22:37] LABS: ALT/SGPT 10.0 U/L (7.0-40); AST/SGOT 16.0 U/L (<34); CALCIUM LEVEL 9.1 MG/DL (8.3-10.6); CARBON DIOXIDE LEVEL 24.0 MMOL/L (20-31); CHLORIDE LEVEL 103.0 MMOL/L (98-107); CREATININE FOR GFR 2.74 MG/DL (0.55-1.30); GLOMERULAR FILTRATION RATE 16.2 (>32); POTASSIUM SERUM 3.9 MMOL/L (3.5-5.1); SODIUM LEVEL 141.0 MMOL/L (136-145)
[2024-08-12] VITALS (7 sets, daily range): BP systolic 117–154; BP diastolic 67–93; TEMP 98.2–101.5; O2SAT 92–95
[2024-08-12] MEDS: NS 500 ML IV ONE (00:10)
[2024-08-12] MEDS: ACETAMINOPHEN *IV* 1,000 MG in IV 1 EA IV ONE (00:10)
[2024-08-12 00:11] LABS: CK-MB VALUE MASS 1.0 NG/ML (<3.6)
[2024-08-12 00:13] LABS: CPK CREATINE PHOSPHOKINASE 49.0 U/L (34-145); MB/CK RELATIVE INDEX 2.04 (< OR =4)
[2024-08-12] MEDS: ONDANSETRON 4MG 2ML VIAL IV ONE (01:19)
[2024-08-12] MEDS: MORPHINE 4 MG/ML 1 ML VIAL IV PRN (01:19)
[2024-08-12] MEDS ORDERED: LIFI1DRO4 OU (05:14)
[2024-08-12] MEDS ORDERED: ASPI81CH33 PO (05:14)
[2024-08-12] MEDS ORDERED: AMIT-255 PO (05:14)
[2024-08-12] MEDS ORDERED: PRESCAP PO (05:14)
[2024-08-12] MEDS ORDERED: ALLO100T PO (05:14)
[2024-08-12] MEDS ORDERED: HOME MED LIST COMPLETE! XX SCH (05:15)
[2024-08-12] MEDS ORDERED: MAALOX 30 ML SUSP *UDC PO PRN (05:25)
[2024-08-12] MEDS ORDERED: GLUCAGON INJ 1 MG VIAL SC PRN (05:25)
[2024-08-12] MEDS ORDERED: DEXTROSE 50% 50 ML SYRINGE IV PRN (05:25)
[2024-08-12] MEDS ORDERED: GLUCOSE 4 GM CHEW PO PRN (05:25)
[2024-08-12] MEDS: NS (Normal Saline) 0.9% 1,000 ML IV SCH (05:59)
[2024-08-12] MEDS: LEVOTHYROXINE 75 MCG TABLET (0.075 MG) PO SCH (05:59)
[2024-08-12 06:50] LABS: INR 1.13
[2024-08-12] MEDS: INSULIN LISPRO (NovoLOG) PER UNIT SC SCH ×2 (07:54→21:00)
[2024-08-12 09:21] LABS: BASO # 0.1 10^3/uL (0.0-0.2); BASO % 0.3 % (0.0-1.0); EOS # 0.1 10^3/uL (0.0-0.5); EOS % 0.7 % (0.0-3.0); LYMPH # 1.5 10^3/uL (1.5-5.0); LYMPH % 9.5 % (24.0-44.0); MONO # 2.1 10^3/uL (0.0-0.8); MONO % 12.9 % (2.0-8.0); NEUTROPHILS # 12.1 10^3/uL (1.5-8.5); NEUTROPHILS % 75.7 % (36.0-66.0); PLATELET COUNT, AUTOMATED 122 10^3/uL (150-450)
[2024-08-12] MEDS: ACETAMINOPHEN 325 MG TAB PO PRN (09:33)
[2024-08-12] MEDS: HEPARIN SOD 5000 UNITS/ML 1 ML VIAL/SYRINGE SC SCH (09:34)
[2024-08-12 09:45] LABS: CALCIUM LEVEL 9.1 MG/DL (8.3-10.6); CARBON DIOXIDE LEVEL 24.0 MMOL/L (20-31); CHLORIDE LEVEL 105.0 MMOL/L (98-107); CREATININE FOR GFR 2.67 MG/DL (0.55-1.30); GLOMERULAR FILTRATION RATE 16.7 (>32); POTASSIUM SERUM 3.8 MMOL/L (3.5-5.1); SODIUM LEVEL 141.0 MMOL/L (136-145)
[2024-08-12] MEDS: cefTRIAXone SOD 2 GM in DEXTROSE 5% (D5W) ADV/MINI-BAG 50 ML IV SCH (18:36)
[2024-08-12] MEDS ORDERED: VANCOMYCIN INTERMITTENT/PULSE DOSING BY CLINICAL PHARMACIST PER DOSING PROTOCOL XX SCH (20:05)
[2024-08-12 20:13] LABS: VENOUS BASE EXCESS -6.8 (-2.0-2.0); VENOUS HCO3 18.0 MMOL/L (23.0-27.0); VENOUS O2 SATURATION 94.2 % (60.0-80.0); VENOUS PARTIAL PRESSURE CO2 33.5 mmHg (38.0-50.0); VENOUS PARTIAL PRESSURE O2 70.6 mmHg (30.0-50.0); VENOUS PH 7.348 UNITS (7.330-7.430); VENOUS STANDARD HCO3 18.9 MMOL/L; VENOUS TOTAL CO2 19.0 MMOL/L (24.0-28.0)
[2024-08-12] MEDS: IBUPROFEN 800 MG TAB PO ONE (20:17)
[2024-08-12] MEDS ORDERED: VANCOMYCIN HCL 1,000 MG, VIAL MATE ADAPTER 1 EACH in NS 250 ML IV SCH (20:20)
[2024-08-12] MEDS: PANTOPRAZOLE 40MG TAB PO SCH (20:20)
[2024-08-12 20:22] LABS: BASO # 0.1 10^3/uL (0.0-0.2); BASO % 0.3 % (0.0-1.0); EOS # 0.1 10^3/uL (0.0-0.5); EOS % 0.5 % (0.0-3.0); LYMPH # 1.3 10^3/uL (1.5-5.0); LYMPH % 8.0 % (24.0-44.0); MONO # 1.9 10^3/uL (0.0-0.8); MONO % 11.8 % (2.0-8.0); NEUTROPHILS # 13.0 10^3/uL (1.5-8.5); NEUTROPHILS % 78.7 % (36.0-66.0); PLATELET COUNT, AUTOMATED 119 10^3/uL (150-450)
[2024-08-12 20:27] LABS: ERYTHROCYTE SEDIMENTATION RATE 35 mm/hr (0-30)
[2024-08-12 21:00] LABS: ALT/SGPT 11.0 U/L (7.0-40); AST/SGOT 17.0 U/L (<34); C REACTIVE PROTEIN QUANTITATIV 14.44 MG/DL (<1.0); CALCIUM LEVEL 8.4 MG/DL (8.3-10.6); CARBON DIOXIDE LEVEL 20.0 MMOL/L (20-31); CHLORIDE LEVEL 106.0 MMOL/L (98-107); CREATININE FOR GFR 2.56 MG/DL (0.55-1.30); GLOMERULAR FILTRATION RATE 17.5 (>32); MAGNESIUM LEVEL 1.6 MG/DL (1.8-2.4); POTASSIUM SERUM 3.9 MMOL/L (3.5-5.1); SODIUM LEVEL 140.0 MMOL/L (136-145)
[2024-08-12] MEDS: VANCOMYCIN HCL 1,500 MG, VIAL MATE ADAPTER 1 EACH in NS 500 ML IV ONE (21:00)
[2024-08-12 23:01] LABS: KETONE, URINE AUTO RFX 1+ mg/dL (NEGATIVE); LEUKOCYTE ESTERASE UR AUTO RFX TRACE (NEGATIVE); MUCUS, URINE RFX SMALL (NEGATIVE); NITRITE, URINE AUTO RFX NEGATIVE (NEGATIVE); RBC, URINE AUTO RFX 2 /HPF (0-3); SQUAM EPITHELIAL CELL UR AURFX 1 /HPF (0-6); WBC, URINE AUTO RFX 35 /HPF (0-3)
[2024-08-13] VITALS (15 sets, daily range): BP systolic 106–139; BP diastolic 64–86; TEMP 96.9–102.5; O2SAT 88–97
[2024-08-13] MEDS: MAGNESIUM OXIDE 400 MG TAB PO ONE (00:21)
[2024-08-13] MEDS: PIPERACILLIN/TAZOBACTAM SOD 4.5 GM in DEXTROSE 5% (D5W) ADV/MINI-BAG 50 ML IV SCH (00:22)
[2024-08-13 06:30] LABS: PLATELET COUNT, AUTOMATED 106 10^3/uL (150-450)
[2024-08-13 06:56] LABS: ALT/SGPT 13.0 U/L (7.0-40); AST/SGOT 27.0 U/L (<34); CALCIUM LEVEL 8.4 MG/DL (8.3-10.6); CARBON DIOXIDE LEVEL 20.0 MMOL/L (20-31); CHLORIDE LEVEL 108.0 MMOL/L (98-107); CREATININE FOR GFR 2.76 MG/DL (0.55-1.30); GLOMERULAR FILTRATION RATE 16.0 (>32); MAGNESIUM LEVEL 1.5 MG/DL (1.8-2.4); POTASSIUM SERUM 3.4 MMOL/L (3.5-5.1); SODIUM LEVEL 143.0 MMOL/L (136-145)
[2024-08-13 08:03] LABS: VANCOMYCIN RANDOM 20.6 UG/ML
[2024-08-13] MEDS: POTASSIUM CHLORIDE 10MEQ SR TABLET PO SCH (09:08)
[2024-08-13] MEDS: MAG SULF 1GM/100ML (MAG RUN) 1 GM in IV 1 EA IV SCH (09:09)
[2024-08-13] MEDS ORDERED: ONDANSETRON 4MG 2ML VIAL IV SCH (12:00)
[2024-08-13] MEDS: ONDANSETRON 4MG 2ML VIAL IV PRN (12:31)
[2024-08-13] MEDS ORDERED: VANCOMYCIN HCL 500 MG in DEXTROSE 5% (D5W) MINI-BAG PLU 100 ML IV ONE (14:00)
[2024-08-13] MEDS: FIDAXOMICIN 200 MG TAB PO SCH (14:46)
[2024-08-13] MEDS: IBUPROFEN 800 MG TAB PO ONE (20:18)
[2024-08-13] MEDS ORDERED: ACETAMINOPHEN *IV* 1,000 MG in IV 1 EA IV SCH (22:00)
[2024-08-13 23:35] LABS: VENOUS BASE EXCESS -10.5 (-2.0-2.0); VENOUS HCO3 16.1 MMOL/L (23.0-27.0); VENOUS O2 SATURATION 72.5 % (60.0-80.0); VENOUS PARTIAL PRESSURE CO2 38.6 mmHg (38.0-50.0); VENOUS PARTIAL PRESSURE O2 39.0 mmHg (30.0-50.0); VENOUS PH 7.239 UNITS (7.330-7.430); VENOUS STANDARD HCO3 15.7 MMOL/L; VENOUS TOTAL CO2 17.3 MMOL/L (24.0-28.0)
[2024-08-13] MEDS: ACETAMINOPHEN 500 MG TAB PO SCH (23:41)
[2024-08-14] VITALS (10 sets, daily range): BP systolic 86–128; BP diastolic 44–80; TEMP 97.5–100.6; O2SAT 91–96
[2024-08-14 00:12] LABS: ALT/SGPT 14.0 U/L (7.0-40); AST/SGOT 30.0 U/L (<34); CALCIUM LEVEL 8.2 MG/DL (8.3-10.6); CARBON DIOXIDE LEVEL 17.0 MMOL/L (20-31); CHLORIDE LEVEL 109.0 MMOL/L (98-107); CREATININE FOR GFR 2.86 MG/DL (0.55-1.30); GLOMERULAR FILTRATION RATE 15.4 (>32); MAGNESIUM LEVEL 2.0 MG/DL (1.8-2.4); PHOSPHORUS LEVEL 3.1 MG/DL (2.4-5.1); POTASSIUM SERUM 4.2 MMOL/L (3.5-5.1); SODIUM LEVEL 139.0 MMOL/L (136-145)
[2024-08-14 00:13] LABS: PLATELET COUNT, AUTOMATED 148 10^3/uL (150-450)
[2024-08-14 00:34] LABS: LYMPHOCYTES 6 % (16-44); MONOCYTES 10 % (0-5); NEUTROPHILS 73 % (28-66)
[2024-08-14 00:35] LABS: PLATELET ESTIMATE DECREASED (NORMAL)
[2024-08-14] MEDS ORDERED: VANCOMYCIN HCL IV SCH (01:15)
[2024-08-14] MEDS ORDERED: FLUID PLACE HOLDER IV SCH (01:15)
[2024-08-14] MEDS: NS (Normal Saline) 0.9% 1,000 ML IV ONE (01:40)
[2024-08-14] MEDS: PIPERACILLIN/TAZOBACTAM SOD 4.5 GM in DEXTROSE 5% (D5W) ADV/MINI-BAG 50 ML IV SCH (02:27)
[2024-08-14] MEDS: SODIUM BICARBONATE 75 MEQ in NS 0.45% 1,000 ML IV SCH (04:33)
[2024-08-14] MEDS ORDERED: NALOXONE INJ 0.4 MG/1 ML VIAL IV PRN (05:50)
[2024-08-14] MEDS: MORPHINE 2 MG/ML 1 ML VIAL IV PRN (05:57)
[2024-08-14 08:32] LABS: VENOUS BASE EXCESS -11.5 (-2.0-2.0); VENOUS HCO3 15.0 MMOL/L (23.0-27.0); VENOUS O2 SATURATION 84.6 % (60.0-80.0); VENOUS PARTIAL PRESSURE CO2 35.7 mmHg (38.0-50.0); VENOUS PARTIAL PRESSURE O2 51.1 mmHg (30.0-50.0); VENOUS PH 7.241 UNITS (7.330-7.430); VENOUS STANDARD HCO3 15.2 MMOL/L; VENOUS TOTAL CO2 16.1 MMOL/L (24.0-28.0)
[2024-08-14] MEDS: VANCOMYCIN HCL 750 MG, VIAL MATE ADAPTER 1 EACH in NS 250 ML IV ONE (08:36)
[2024-08-14 08:46] LABS: BASO # 0.1 10^3/uL (0.0-0.2); BASO % 0.2 % (0.0-1.0); EOS # 0.0 10^3/uL (0.0-0.5); EOS % 0.1 % (0.0-3.0); LYMPH # 1.5 10^3/uL (1.5-5.0); LYMPH % 5.0 % (24.0-44.0); MONO # 2.2 10^3/uL (0.0-0.8); MONO % 7.3 % (2.0-8.0); NEUTROPHILS # 24.4 10^3/uL (1.5-8.5); NEUTROPHILS % 79.4 % (36.0-66.0); PLATELET COUNT, AUTOMATED 143 10^3/uL (150-450)
[2024-08-14] MEDS: FOLIC ACID 1 MG TAB PO SCH (09:00)
[2024-08-14] MEDS: FAMOTIDINE 20 MG TAB PO SCH (09:00)
[2024-08-14] MEDS: ATORVASTATIN 10 MG TAB PO SCH (09:00)
[2024-08-14] MEDS: MEMANTINE 5 MG TABLET PO SCH (09:00)
[2024-08-14] MEDS: CYANOCOBALAMIN 500 MCG TAB PO SCH (09:00)
[2024-08-14 09:09] LABS: ALT/SGPT 14.0 U/L (7.0-40); AST/SGOT 23.0 U/L (<34); CALCIUM LEVEL 8.2 MG/DL (8.3-10.6); CARBON DIOXIDE LEVEL 16.0 MMOL/L (20-31); CHLORIDE LEVEL 111.0 MMOL/L (98-107); CREATININE FOR GFR 2.83 MG/DL (0.55-1.30); GLOMERULAR FILTRATION RATE 15.6 (>32); MAGNESIUM LEVEL 1.9 MG/DL (1.8-2.4); POTASSIUM SERUM 4.1 MMOL/L (3.5-5.1); SODIUM LEVEL 142.0 MMOL/L (136-145)
[2024-08-14 12:44] LABS: CALCIUM LEVEL 7.9 MG/DL (8.3-10.6); CARBON DIOXIDE LEVEL 17.0 MMOL/L (20-31); CHLORIDE LEVEL 110.0 MMOL/L (98-107); CREATININE FOR GFR 2.81 MG/DL (0.55-1.30); GLOMERULAR FILTRATION RATE 15.7 (>32); POTASSIUM SERUM 4.1 MMOL/L (3.5-5.1); SODIUM LEVEL 140.0 MMOL/L (136-145)
[2024-08-14 13:49] LABS: IRON (FE) 11.0 UG/DL (50-170); PERCENT SATURATION 6.4 % (13.2-45.0)
[2024-08-14 13:51] LABS: VITAMIN B12 LEVEL 345.0 PG/ML (211-911)
[2024-08-14] MEDS: DIVALPROEX 250 MG TAB PO SCH (14:38)
[2024-08-14] MEDS: ASPIRIN 81 MG CHEWABLE TABLET PO SCH (14:38)
[2024-08-14] MEDS: GABAPENTIN 100 MG CAP PO SCH (16:00)
[2024-08-14] MEDS: SODIUM BICARBONATE 150 MEQ in STERILE WATER LITER BAG 1,000 ML IV SCH (19:47)
[2024-08-14] MEDS: LATANOPROST 0.005% OPHTH SOLN 2.5 ML OU SCH (20:37)
[2024-08-14] MEDS: AMITRIPTYLINE 25 MG TABLET PO SCH (21:00)
[2024-08-14] MEDS: EZETIMIBE 10 MG TABLET PO SCH (21:00)
[2024-08-15] VITALS (22 sets, daily range): BP systolic 114–158; BP diastolic 70–83; TEMP 97.2–99.9; O2SAT 83–98
[2024-08-15 07:03] LABS: PLATELET COUNT, AUTOMATED 177 10^3/uL (150-450)
[2024-08-15 07:26] LABS: ALT/SGPT 12.0 U/L (7.0-40); AST/SGOT 25.0 U/L (<34); CALCIUM LEVEL 7.9 MG/DL (8.3-10.6); CARBON DIOXIDE LEVEL 21.0 MMOL/L (20-31); CHLORIDE LEVEL 105.0 MMOL/L (98-107); CREATININE FOR GFR 2.69 MG/DL (0.55-1.30); GLOMERULAR FILTRATION RATE 16.5 (>32); MAGNESIUM LEVEL 1.9 MG/DL (1.8-2.4); POTASSIUM SERUM 3.7 MMOL/L (3.5-5.1); SODIUM LEVEL 140.0 MMOL/L (136-145)
[2024-08-15 07:50] LABS: ATYPICAL LYMPH 2 % (0-5); LYMPHOCYTES 3 % (16-44); MONOCYTES 10 % (0-5); NEUTROPHILS 72 % (28-66)
[2024-08-15 07:51] LABS: PLATELET ESTIMATE DECREASED (NORMAL)
[2024-08-15] MEDS: FERRIC CARBOXYMALTOSE INJ 750 MG, VIAL MATE ADAPTER 1 EACH in NS 100 ML IV ONE (08:50)
[2024-08-15] MEDS: POTASSIUM CHLORIDE 10MEQ SR TABLET PO SCH (09:00)
[2024-08-15] MEDS: MORPHINE 4 MG/ML 1 ML VIAL IV PRN (09:06)
[2024-08-15] MEDS: ONDANSETRON 4MG 2ML VIAL IV PRN (12:41)
[2024-08-15] MEDS: metroNIDAZOLE 500 MG in IV 1 EA IV SCH (15:29)
[2024-08-15] MEDS: VANCOMYCIN 125MG CAPSULE PO SCH (18:00)
[2024-08-15] MEDS: VANCOMYCIN 500MG/10ML VIAL PR SCH (18:22)
[2024-08-16] VITALS (20 sets, daily range): BP systolic 102–143; BP diastolic 55–70; TEMP 97.2–98.6; O2SAT 87–97
[2024-08-16 09:00] LABS: BASO # 0.2 10^3/uL (0.0-0.2); BASO % 0.6 % (0.0-1.0); EOS # 0.1 10^3/uL (0.0-0.5); EOS % 0.3 % (0.0-3.0); LYMPH # 1.0 10^3/uL (1.5-5.0); LYMPH % 3.1 % (24.0-44.0); MONO % 8.3 % (2.0-8.0); NEUTROPHILS # 28.8 10^3/uL (1.5-8.5); NEUTROPHILS % 85.3 % (36.0-66.0); PLATELET COUNT, AUTOMATED 160 10^3/uL (150-450)
[2024-08-16 09:13] LABS: MONO # 2.8 10^3/uL (0.0-0.8)
[2024-08-16 09:45] LABS: ALT/SGPT < 9 U/L (7.0-40); AST/SGOT 18 U/L (<34); CALCIUM LEVEL 7.6 MG/DL (8.3-10.6); CARBON DIOXIDE LEVEL 30 MMOL/L (20-31); CHLORIDE LEVEL 100 MMOL/L (98-107); CREATININE FOR GFR 2.51 MG/DL (0.55-1.30); GLOMERULAR FILTRATION RATE 18.0 (>32); MAGNESIUM LEVEL 1.9 MG/DL (1.8-2.4); POTASSIUM SERUM 3.0 MMOL/L (3.5-5.1); SODIUM LEVEL 139 MMOL/L (136-145)
[2024-08-16] MEDS: KCL 40MEQ in NS 1000ML 1,000 ML IV SCH (12:21)
[2024-08-16] MEDS: ACETAMINOPHEN 325 MG TAB PO PRN (22:00)
[2024-08-17] VITALS (10 sets, daily range): BP systolic 107–122; BP diastolic 58–74; TEMP 97–97.1; O2SAT 89–96
[2024-08-17 05:12] LABS: BASO # 0.1 10^3/uL (0.0-0.2); BASO % 0.6 % (0.0-1.0); EOS # 0.2 10^3/uL (0.0-0.5); EOS % 0.9 % (0.0-3.0); LYMPH # 1.2 10^3/uL (1.5-5.0); LYMPH % 5.0 % (24.0-44.0); MONO % 10.6 % (2.0-8.0); NEUTROPHILS # 19.6 10^3/uL (1.5-8.5); NEUTROPHILS % 79.3 % (36.0-66.0); PLATELET COUNT, AUTOMATED 156 10^3/uL (150-450)
[2024-08-17 05:21] LABS: ALT/SGPT 11.0 U/L (7.0-40); AST/SGOT 21.0 U/L (<34); CALCIUM LEVEL 7.5 MG/DL (8.3-10.6); CARBON DIOXIDE LEVEL 28.0 MMOL/L (20-31); CHLORIDE LEVEL 102.0 MMOL/L (98-107); CREATININE FOR GFR 2.53 MG/DL (0.55-1.30); GLOMERULAR FILTRATION RATE 17.8 (>32); MAGNESIUM LEVEL 1.9 MG/DL (1.8-2.4); MONO # 2.6 10^3/uL (0.0-0.8); POTASSIUM SERUM 3.4 MMOL/L (3.5-5.1); SODIUM LEVEL 142.0 MMOL/L (136-145)
[2024-08-17] MEDS: KCL 10MEQ/100ML SWI (KRUN) 10 MEQ in IV 1 EA IV SCH (10:05)
[2024-08-17] MEDS ORDERED: HYOSCYAMINE SULFATE 0.125 MG SUBL TABLET PO PRN (13:30)
[2024-08-17] MEDS ORDERED: ONDANSETRON 4MG ORAL DISINTEGRATING TAB PO PRN (13:30)
[2024-08-17] MEDS ORDERED: ATROPINE SULFATE 1% OPHTH SOLN 2 ML BTL SL PRN (13:30)
[2024-08-17] MEDS ORDERED: SALIVA SUBSTITUTE BTL MT PRN (13:30)
[2024-08-17] MEDS ORDERED: MORPHINE 10 MG/0.5 ML ORAL CONCENTRATE SOLUTION U/D SL PRN (13:30)
[2024-08-17] MEDS ORDERED: POLYVINYL ALCOHOL OPHTH SOLN 15ML (LIQUITEARS) OU PRN (13:30)
[2024-08-17] MEDS: MORPHINE 10 MG/0.5 ML ORAL CONCENTRATE SOLUTION U/D SL SCH (17:09)
[2024-08-18] MEDS: LEVOTHYROXINE 75 MCG TABLET (0.075 MG) PO SCH (05:18)
[2024-08-20] MEDS: MORPHINE 10 MG/0.5 ML ORAL CONCENTRATE SOLUTION U/D SL SCH (13:11)
[2024-08-21] MEDS: LORazepam 1 MG TAB PO PRN (11:16)
[2024-08-21] MEDS: LORazepam 1 MG TAB PO SCH (14:00)
[2024-08-22] MEDS: MORPHINE 10 MG/0.5 ML ORAL CONCENTRATE SOLUTION U/D SL PRN (11:16)
[2024-08-27 14:18] VITALS: O2SAT 94
[2024-08-29] MEDS ORDERED: MORPHINE 10 MG/0.5 ML ORAL CONCENTRATE SOLUTION U/D SL PRN (13:40)
[2024-08-29] MEDS: MORPHINE 10 MG/0.5 ML ORAL CONCENTRATE SOLUTION U/D SL SCH (17:53)
[2024-09-04] MEDS: NYSTATIN 100,000 UNITS/GM TOPICAL PWD 15 GM TOP PRN (12:39)
== END 2024-09-11 02:10 | disposition expired | DRG 871 ==
LOC: M ED 21:28 → M ED INP 08-12 05:21 → M MSPAV 08-12 09:36 → M PCU 08-14 01:12 → M MS5PR 08-17 16:12
PROVIDERS: ADMIT Family Medicine; ATTEND Internal Medicine
DX: A41.9 Sepsis, unspecified organism (principal); E43 Unspecified severe protein-calorie malnutrition; N18.4 Chronic kidney disease, stage 4 (severe); N17.9 Acute kidney failure, unspecified; A04.71 Enterocolitis due to Clostridium difficile, recurrent; E87.20 Acidosis, unspecified; I13.0 Hypertensive heart and chronic kidney disease with heart failure and stage 1 through stage 4 chronic kidney disease, or unspecified chronic kidney disease; R18.8 Other ascites; F03.90 Unspecified dementia, unspecified severity, without behavioral disturbance, psychotic disturbance, mood disturbance, and anxiety; I12.9 Hypertensive chronic kidney disease with stage 1 through stage 4 chronic kidney disease, or unspecified chronic kidney disease; Z51.5 Encounter for palliative care; Z66 Do not resuscitate; E11.22 Type 2 diabetes mellitus with diabetic chronic kidney disease; Z85.528 Personal history of other malignant neoplasm of kidney; M19.90 Unspecified osteoarthritis, unspecified site; G43.909 Migraine, unspecified, not intractable, without status migrainosus; M10.9 Gout, unspecified; K21.9 Gastro-esophageal reflux disease without esophagitis; E86.0 Dehydration; E11.42 Type 2 diabetes mellitus with diabetic polyneuropathy; E03.9 Hypothyroidism, unspecified; D63.1 Anemia in chronic kidney disease; E73.9 Lactose intolerance, unspecified; R57.1 Hypovolemic shock; R00.0 Tachycardia, unspecified; L89.152 Pressure ulcer of sacral region, stage 2; D69.6 Thrombocytopenia, unspecified; R13.10 Dysphagia, unspecified; N18.30 Chronic kidney disease, stage 3 unspecified; E87.6 Hypokalemia; I50.9 Heart failure, unspecified; E78.5 Hyperlipidemia, unspecified; Z79.82 Long term (current) use of aspirin; Z79.890 Hormone replacement therapy; Z96.653 Presence of artificial knee joint, bilateral; Z90.5 Acquired absence of kidney; Z90.49 Acquired absence of other specified parts of digestive tract; Z79.899 Other long term (current) drug therapy; Z88.2 Allergy status to sulfonamides